=== PATIENT | female | born 1980 | race Caucasian/White ===

== ENCOUNTER 2018-06-22 13:25 | Emergency (ER) | payer OTHER ==
[~2018-06-22] VITALS: Ht 162.6 cm; Wt 113.4 kg
[~2018-06-22 13:25] MED LIST: ABILIFY10 MG PO; ABILIFY20 MG PO; AMBIEN10 MG PO; AMITRIPTYLINE H10 MG PEG; ATARAX; ATENOLOL25 MG PO; ATIVAN1 MG PO; AYGESTIN5 MG PO; CLONAZEPAM1 MG PO; CLONIDINE HCL0.1 MG PO; CYMBALTA60 MG PO; DIFLUCAN10 MG/1 ML; DIGOXIN125 MCG PO; DOXYCYCLINE HY100 MG PO; EFFEXOR XR150 MG PO; ENBREL25 MG/0.5 IM; FOLIC ACID1 MG PO; Fioricet; KEPPRA500 MG PO; KLONOPIN1 MG PO; LAMICTAL25 MG PO; LYRICA50 MG PO; MAGNESIUM OXID400 MG PO; MELOXICAM15 MG PO; METHOTREXATE2.5 MG PO; METOPROLOL TAR100 MG PO; METOPROLOL TART25 MG PO; MULTI-VITAMIN1 EACH; NEXIUM20 MG PO; NORETHINDRONE AC5 MG PO; POTASSIUM CHLO10 ME1 PO; PROZAC20 MG PO; SEROQUEL XR150 MG; TYLENOL WITH C1 EACH PO; VERAPAMIL ER120 MG PO; VIIBRYD40 MG PO; VITAMIN D32000 UNIT PO; ZITHROMAX250 MG; ZOLOFT100 MG PO
--- OUTSIDE RECORDS SUMMARY | 2018-06-22 13:31 | XMS REPORT | Continuity of Care Document ---
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 08/14/2015 [facility] SWOLLEN FOOT Active 08/14/2015 [facility] Discharge Diagnosis: Migraine 11/13/2014 11/16/2014 [facility] HEADACHE Active 11/12/2014 [facility] Discharge Diagnosis: Action tremor 12/14/2013 12/17/2013 [facility] Discharge Diagnosis: Hallucinations, visual 12/14/2013 12/17/2013 [facility] OTHER Active 12/13/2013 [facility] Epilepsy Resolved Problem 11/16/2014 [facility] GERD (<span ID="[id number]">Confirmed</span>) Resolved Problem 11/16/2014 [facility] HTN (<span ID="[id number]">Confirmed</span>) Resolved Problem 11/16/2014 [facility] RA (<span ID="[id number]">Confirmed</span>) Resolved Problem 11/16/2014 [facility] Migraine Active Problem 04/13/2016..1.132678.4.391.11.21172 RA Active Problem 04/13/2016 06.17.830.1.666400.4.391.11 GERD Active Problem 04/13/2016.0.1.075559.4.391.1118102 Insomnia Active Problem 04/13/2016 .1.027925.4.391.11 Cardiac arrhythmia Active Problem 04/13/2016..1.413829.4.391.1195196 Seizure Active Problem 04/13/2016.0.1.338891.4.391.11 Anxiety Active Diagnosis 04/13/2016.0.1.037897.4.391.11.58686 Opiate addiction Active Problem 04/13/2016 2.16.840.1.471132.4.391.11.68171 HTN Active Problem 04/13/2016 2.16.840.1.027328.4.391.11.95071 Seizures Active Problem 04/13/2016 2.16.840.1.176085.4.391.11.98984 Oral thrush Active Diagnosis 12/23/2015 2.16.840.1.632251.4.391.11.16749 Impetigo Active Diagnosis 09/03/2015 2.16.840.1.953911.4.391.11.82304 Urinary tract infection, site unspecified Active Diagnosis 09/03/2015 2.16.840.1.255058.4.391.11.98147 Right shoulder pain Active Diagnosis 09/03/2015 2.16.840.1.529986.4.391.11.23039 Cellulitis Active Diagnosis 09/03/2015 2.16.840.1.086477.4.391.11.56194 Fever Active Diagnosis 10/07/2015 2.16.840.1.250857.4.391.11.64238 Bronchitis Active Diagnosis 10/07/2015 2.16.840.1.401623.4.391.11.09131 DM Active Problem 04/13/2016 2.16.840.1.662628.4.391.11.55509 Sleep apnea Active Problem 04/13/2016 2.16.840.1.747608.4.391.11.47451 Chronic pain Active Problem 04/13/2016 2.16.840.1.215306.4.391.11.57119 Migraine headache Active Diagnosis 10/07/2015 2.16.840.1.437772.4.391.11.82155 Vaginal bleeding Active Diagnosis 10/07/2015 2.16.840.1.740591.4.391.11.92786 UTI Active Diagnosis 10/07/2015 2.16.840.1.473462.4.391.11.30537 Acute sinusitis Active Diagnosis 10/07/2015 2.16.840.1.890153.4.391.68 Tachycardia Active Diagnosis 10/07/2015 2.16.840.1.446109.4.391. Essential hypertension Active Problem 04/13/2016 2.16.840.1.649925.4.391. Migraine without aura and without status migrainosus, not intractable Active Problem 04/13/2016 2.16.840.1.994845.4.391. Irritable bowel syndrome with diarrhea Active Problem 04/13/2016 2.16.840.1.248122.4.391 Acute cystitis without hematuria Active Diagnosis 03/17/2016 2.16.840.1.164448.4.391. 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 2.16.840.1.842755.4.391 Anxiety Resolved Problem 08/21/2015 [facility] Depression Resolved Problem 08/21/2015 [facility] GERD (<span ID="[id number]">Confirmed</span>) Resolved Problem 08/21/2015 [facility] Hypertension Resolved Problem 08/21/2015 [facility] Rheumatoid arthritis Resolved Problem 08/21/2015 [facility] Seizures Resolved Problem 08/21/2015 [facility] SVT - Supraventricular tachycardia Resolved Problem 08/21/2015 [facility] CELLULITIS, UNSPECIFIED Active [facility] Medications Medication Details Route Status Patient Instructions Ordering Provider Order Date Source Fioricet TAKE ONE (1) TABLET(S) BY MOUTH Active 50-325-40 MG BY MOUTH EVERY FOUR HOURS [facility] 04/20/2016 2.16840.1.340247.4.391. Klor-Con M20 1 tablet with food Orally Active 20 MEQ Orally Once a day [facility] 03/16/2016 2.16.840.1.582199.4.391. Librax 1 capsule before meals Orally Active 5-2.5 MG Orally three times a day (tid) [facility] 03/16/2016 2.16.840.1.104924.4.391.11.21124 Emigrant 1 tablet as needed Orally Active 7.5-325 MG Orally three times a day (tid) as needed (prn) [facility] 03/16/2016 2.16.840.1.264738.4.391.11.00453 Tylenol/Codeine #4 1 tablet as needed Orally Active 300-60 MG Orally every 6 hrs PRN [facility] 12/26/2015 2.16.840.1.952555.4.391.11.26051 Xanax 1 tablet Orally Active 1 MG Orally three times a day (tid) [facility] 10/27/2015 2.16.840.1.143094.4.391.11.56511 Keppra 1 tablet Orally Active 750 MG Orally every 12 hrs [facility] 10/27/2015 2.16.840.1.468304.4.391.11.92387 Venlafaxine HCl ER 1 tablet with food Orally Active 225 MG Orally Once a day [facility] 10/21/2015 2.16.840.1.849134.4.391.11.86254 Fioricet 1 tablet as needed Orally Active 50-325-40 MG Orally every 4 hrs [facility] 10/06/2015 2.16.840.1.239452.4.391.11.89691 Ibuprofen 1 tablet by mouth Active 800 MG by mouth twice a day [facility] 10/01/2015 2.16.840.1.858355.4.391.11.51967 Promethazine-Codeine 5 ml as needed Orally Active 6.25-10 MG/5ML Orally every 6 hrs [facility] 09/15/2015 2.16.840.1.429517.4.391.11.84863 Diflucan 1 tablet Orally Active 100 mg Orally Once a day [facility] 09/08/2015 2.16.840.1.967406.4.391.11.90845 Metformin HCl 1 tablet with meals Orally Active 500 mg Orally Twice a day [facility] 09/08/2015 2.16.840.1.720647.4.391.11.99564 Amlodipine Besylate 1 tablet Orally Active 10 MG Orally Once a day [facility] 09/03/2015 2.16.840.1.375540.4.391.11.68567 Emigrant 1 tablet as needed Orally Active 7.5-325 MG Orally every 8 hrs [facility] 09/02/2015 2.16.840.1.976057.4.391.11.91947 Clonidine HCl 1 tablet Orally Active 0.2 MG Orally four times a day (qid) as needed (prn) [facility] 08/26/2015 2.16.840.1.390751.4.391.11.47983 Ativan 1 tablet as needed Orally Active 1 MG Orally three times a day (tid) [facility] 08/22/2015 2.16.840.1.460577.4.391.11.67331 Folic Acid 1 mg, 1 tab, Route: PO, Drug form: TAB, Daily, Dosing Weight 100.909, kg, Start date: 08/16/15 9:00:00 CDT, Duration: 30 day, Stop date: 09/14/15 9:00:00 CDTNotes: (Same as: Folvite) No Longer Active 08/16/2015 [facility] Nexium 40 mg, Route: PO, Drug form: ECCAP, Daily, Dosing Weight 100.909, kg, Start date: 08/16/15 9:00:00 CDT, Duration: 30 day, Stop date: 09/14/15 9:00:00 CDT No Longer Active 08/16/2015 [facility] Buprenorphine 8 MG / Naloxone 2 MG Sublingual Tablet 2 tab, Route: SL, Dosing Weight 100.909, kg, Daily, Start date: 08/16/15 9:00:00 CDT, Duration: 30 day, Stop date: 09/14/15 9:00:00 CDT No Longer Active 08/16/2015 [facility] Verapamil 120 mg, 1 tab, Route: PO, Drug form: TAB, Daily, Dosing Weight 100.909, kg, Start date: 08/16/15 9:00:00 CDT, Duration: 30 day, Stop date: 09/14/15 9:00:00 CDTNotes: (Same As: Shavonne Willis) "Avoid grapefruit and grapefruit juice" No Longer Active 08/16/2015 [facility] Effexor XR 225 mg, 3 cap, Route: PO, Drug form: ERCAP, Daily, Dosing Weight 100.909, kg, Start date: 08/16/15 9:00:00 CDT, Duration: 30 day, Stop date: 09/14/15 9:00:00 CDTNotes: Do not open, crush, or chew. (Same As: Effexor XR) No Longer Active 08/16/2015 [facility] metoprolol tartrate 100 mg, 2 tab, Route: PO, Drug form: TAB, Q12H, Dosing Weight 100.909, kg, Start date: 08/15/15 21:00:00 CDT, Duration: 30 day, Stop date: 09/14/15 9:00:00 CDTNotes: (Same as: Lopressor) No Longer Active 08/16/2015 [facility] Levetiracetam 500 MG Oral Tablet [Keppra] 500 mg, 1 tab, Route: PO, Drug form: TAB, BID, Dosing Weight 100.909, kg, Start date: 08/15/15 21:00:00 CDT, Duration: 30 day, Stop date: 09/14/15 9:00:00 CDTNotes: (Same as:Keppra) No Longer Active 08/16/2015 [facility] amitriptyline 12.5 mg, 0.5 tab, Route: PO, Drug form: TAB, Bedtime, Start date: 08/15/15 21:00:00 CDT, Duration: 30 day, Stop date: 09/13/15 21:00:00 CDTNotes: (Same as: Elavil) No Longer Active 08/16/2015 [facility] Amitriptyline Hydrochloride 12.5 MG / Chlordiazepoxide 5 MG Oral Tablet 1 tab, Route: PO, Dosing Weight 100.909, kg, Bedtime, Start date: 08/15/15 21:00:00 CDT, Duration: 30 day, Stop date: 09/13/15 21:00:00 CDT Inactive 08/16/2015 [facility] Ambien 5 mg, 1 tab, Route: PO, Drug form: TAB, Bedtime, Dosing Weight 100.909, kg, Start date: 08/15/15 21:00:00 CDT, Duration: 30 day, Stop date: 09/13/15 21:00:00 CDTNotes: (Same As: Ambien) No Longer Active 08/16/2015 [facility] chlordiazePOXIDE 5 mg oral capsule (Librium) 5 mg, 1 cap, Route: PO, Drug form: CAP, Bedtime, Start date: 08/15/15 21:00:00 CDT, Duration: 30 day, Stop date: 09/13/15 21:00:00 CDTNotes: (Same As: Librium) No Longer Active 08/16/2015 [facility] PLease do not give Vanco prior to trough is collected PLease do not give Vanco prior to trough is collected, Reminder, Drug form: MISC, Route: MISC, ONCE, 08/15/15 20:00:00 CDT, Stop date: 08/15/15 20:00:00 CDT Inactive 08/16/2015 [facility] pantoprazole 40 mg, 1 tab, Route: PO, Drug form: ECTAB, Before Dinner, Dosing Weight 96.364, kg, Start date: 08/15/15 16:30:00 CDT, Duration: 30 day, Stop date: 09/13/15 16:30:00 CDTNotes: Tablet should not be ch ewed or crushed. (Same as: Protonix) No Longer Active 08/15/2015 [facility] NURSE - Please bring home med bupre.-nalox. 8-2 to Pharmacy NURSE - Please bring home med bupre.-nalox. 8-2 to Pharmacy, 1, Drug form: MISC, Route: MISC, TID, 08/15/15 15:00:00 CDT, Duration: 30 day, Stop date: 09/14/15 9:00:00 CDT No Longer Active 08/15/2015 [facility] Ativan 1 mg, 1 tab, Route: PO, Drug form: TAB, TID, Dosing Weight 100.909, kg, Start date: 08/15/15 15:00:00 CDT, Duration: 30 day, Stop date: 09/14/15 9:00:00 CDTNotes: (Same as: Ativan) No Longer Active 08/15/2015 [facility] Vancomycin 1 gm, Route: IV, ABXQ8H, Dosing Weight 96.364, kg, Start date: 08/15/15 5:00:00 CDT, Duration: 30 day, Stop date: 09/13/15 22:00:00 CDTNotes: TIME CRITICAL MEDICATION (Same As: Vancocin) Infusion rate 2001 mg: infuse over 2.5 hours MEDICATION WASTE Product Size: 1000 mg Product Wasted: ___ mg No Longer Active 08/15/2015 [facility] Ambien 10 mg, PO, Bedtime, 0 Refill(s) Active 08/15/2015 [facility] Esomeprazole 40 MG Enteric Coated Capsule [Nexium] 40 mg=1 cap, PO, Daily, 0 Refill(s) Active 08/15/2015 [facility] Verapamil 120 mg, PO, Daily, 0 Refill(s) Active 08/15/2015 [facility] Buprenorphine 12 MG / Naloxone 3 MG Oral Strip [Suboxone] 8mg/2.5, SL, Daily, # 30 ea, 0 Refill(s) Active 08/15/2015 [facility] metoprolol tartrate 100 mg oral tablet 100 mg=1 tab, PO, BID, 0 Refill(s) Active 08/15/2015 [facility] Effexor XR 225, PO, Daily, 0 Refill(s) Active 08/15/2015 [facility] Limbitrol 12.5 mg-5 mg oral tablet 1 tab, PO, Bedtime, 0 Refill(s) Active 08/15/2015 [facility] Lorazepam 1 MG Oral Tablet [Ativan] 1 mg=1 tab, PO, TID, 0 Refill(s) Active 08/15/2015 [facility] Folic Acid 1 MG Oral Tablet 1 mg=1 tab, PO, Daily, 0 Refill(s) Active 08/15/2015 [facility] multivitamin Daily, 0 Refill(s) Active 08/15/2015 [facility] Levetiracetam 500 MG Oral Tablet [Keppra] 500 mg=1 tab, PO, BID, 0 Refill(s) Active 08/15/2015 [facility] Morphine 2 mg, 1 mL, Route: IV, Drug form: INJ, Q4H, Dosing Weight 96.364, kg, Start date: 08/15/15 0:00:00 CDT, Duration: 30 day, Stop date: 09/13/15 20:00:00 CDTNotes: (Same as:MORPhine Sulfate) Inactive 08/15/2015 [facility] Unasyn 1.5 gm, 1 ea, Route: IVPB, ABXQ6H, Dosing Weight 96.364, kg, Start date: 08/15/15 0:00:00 CDT, Duration: 30 day, Stop date: 09/13/15 17:00:00 CDTNotes: Dosing based on Ampicillin component (Same as: Unasyn) No Longer Active 08/15/2015 [facility] Acetaminophen 650 mg, 2 tab, Route: PO, Drug form: TAB, Q4H, Dosing Weight 96.364, kg, PRN Pain 1-3/Temp > 100.4 F, Start date: 08/14/15 23:50:00 CDT, Duration: 30 day, Stop date: 09/13/15 23:49:00 CDTNotes: Do not exceed 4 gm/day. (Same as: Tylenol) No Longer Active 08/15/2015 [facility] Solu-Medrol 40 mg, 1 mL, Route: IVP, Drug form: INJ, Q12H, Dosing Weight 96.364, kg, Priority: STAT, Start date: 08/14/15 19:47:00 CDT, Duration: 30 day, Stop date: 09/13/15 9:00:00 CDTNotes: (Same as:Solu-MEDROL, A- Methapred) No Longer Active 08/15/2015 [facility] Vancomycin 1 gm, Route: IVPB, Drug form: INJ, EDCF54L, Dosing Weight 96.364, kg, Priority: STAT, Start date: 08/14/15 19:46:00 CDT, Duration: 30 day, Stop date: 09/13/15 8:00:00 CDTNotes: TIME CRITICAL MEDICATION (Same As: Vancocin) Infusion rate 2001 mg: infuse over 2.5 hours MEDICATION WASTE Product Size: 1000 mg Product Wasted: ___ mg Inactive 08/15/2015 [facility] Levaquin 1 tablet Orally Active 500 mg Orally Once a day [facility] 07/29/2015 2.16.840.1.476331.4.391.11.40049 Promethazine-DM 5 ml as needed Orally Active 6.25-15 MG/5ML Orally every 6 hrs [facility] 07/29/2015 2.16.840.1.468356.4.391.11.03364 Doxycycline Monohydrate 1 capsule Orally Active 100 mg Orally every 12 hrs [facility] 07/08/2015 2.16.840.1.797568.4.391.11.27909 Nystatin 5ml Mouth/Throat Active [id number] UNIT/ML Mouth/Throat Twice a day [facility] 07/08/2015 2.16.840.1.904121.4.391.11.48599 melatonin 3 mg oral tablet 3 mg=1 tab, PO, Bedtime, PRN for insomnia, X 60 day, # 60 tab, 0 Refill(s) Active 11/13/2014 [facility] predniSONE 20 mg oral tablet 40 mg=2 tab, PO, Daily, X 3 day, # 6 tab, 0 Refill(s) Active 11/13/2014 [facility] diclofenac potassium 50 mg oral tablet 50 mg=1 tab, PO, Q2H, PRN severe headache, max dose 2 doses per day, # 12 tab, 0 Refill(s)Special Instructions: PRN severe headache, max dose 2 doses per day Inactive 11/13/2014 [facility] Valproic Acid 250 MG Oral Capsule 500 mg=2 cap, PO, BID, # 30 cap, 0 Refill(s) Active 11/13/2014 [facility] Magnesium Sulfate 2 gm, 50 mL, Route: IV, Drug form: INJ, ONCE, Dosing Weight 95.455, kg, Start date: 11/12/14 18:05:00, Stop date: 11/12/14 18:05:00 Inactive 11/12/2014 [facility] Sodium Chloride 0.154 MEQ/ML Injectable Solution 500 mL, 500 ml/hr, Infuse Over: 1 hr, Route: IV, 500, Drug form: INJ, ONCE, Priority: STAT, Dosing Weight 95.455 kg, Start date: 11/12/14 18:05:00, Duration: 1 doses or times, Stop date: 11/12/14 18:05:00 Inactive 11/12/2014 [facility] Vistaril 25 mg, 1 mL, Route: IM, Drug form: INJ, ONCE, Dosing Weight 95.455, kg, Priority: STAT, Start date: 11/12/14 18:04:00, Stop date: 11/12/14 18:04:00 Inactive 11/12/2014 [facility] Valproic Acid 100 MG/ML Injectable Solution 500 mg, 5 mL, Route: IV, Drug form: INJ, ONCE, Dosing Weight 95.455, kg, Start date: 11/12/14 18:04:00, Stop date: 11/12/14 18:04:00Notes: Dilute in at least 50ml D5W or NS. Infusion rate=20 mg/min (Same As: Depacon) Inactive 11/12/2014 [facility] Vancomycin 1.5 gm, Route: IVPB, Drug form: INJ, ONCE, Dosing Weight 95.455, kg, Priority: STAT, Start date: 11/12/14 17:09:00, Stop date: 11/12/14 17:09:00 Inactive 11/12/2014 [facility] cefepime 1 gm, Route: IVPB, ONCE, Dosing Weight 95.455, kg, Priority: STAT, Start date: 11/12/14 17:09:00, Stop date: 11/12/14 17:09:00 Inactive 11/12/2014 [facility] Dexamethasone 10 mg, 1 mL, Route: IVP, Drug form: INJ, ONCE, Dosing Weight 95.455, kg, Priority: STAT, Start date: 11/12/14 15:08:00, Stop date: 11/12/14 15:08:00Notes: MEDICATION WASTE Product Size: 10 mg Product Wasted: 0 mg Inactive 11/12/2014 [facility] Compazine 10 mg, 2 mL, Route: IV, Drug form: INJ, ONCE, Dosing Weight 95.455, kg, Start date: 11/12/14 15:06:00, Stop date: 11/12/14 15:06:00Notes: (Same as: Compazine) Inactive 11/12/2014 [facility] Phenergan 25 mg, 1 mL, Route: IVPB, Drug form: INJ, ONCE, Dosing Weight 95.455, kg, Priority: STAT, Start date: 11/12/14 13:49:00, Stop date: 11/12/14 13:49:00Notes: Do not give IV push. (Same as: Phenergan) Inactive 11/12/2014 [facility] Sodium Chloride 0.154 MEQ/ML Injectable Solution 1,000 mL, 1,000 ml/hr, Infuse Over: 1 hr, Route: IV, 1,000, Drug form: INJ, ONCE, Priority: STAT, Dosing Weight 95.455 kg, Start date: 11/12/14 13:10:00, Duration: 1 doses or times, Stop date: 11/12/14 13:10:00 Inactive 11/12/2014 [facility] Ketorolac 30 mg, 1 mL, Route: IVP, Drug form: INJ, ONCE, Dosing Weight 95.455, kg, Priority: STAT, Start date: 11/12/14 12:14:00, Stop date: 11/12/14 12:14:00Notes: (Same as:Toradol) IV bolus must be given >15 seconds. Give IM administration slowly and deeply into the muscle. Not for use > 4 days MEDICATION WASTE Product Size: 30 mg Product Wasted: ___ mg Inactive 11/12/2014 [facility] Benadryl 25 mg, 0.5 mL, Route: IVP, Drug form: INJ, ONCE, Dosing Weight 95.455, kg, Priority: STAT, Start date: 11/12/14 12:13:00, Stop date: 11/12/14 12:13:00Notes: (Same as: Benadryl) Inactive 11/12/2014 [facility] Reglan 10 mg, 2 mL, Route: IVP, Drug form: INJ, ONCE, Dosing Weight 95.455, kg, Priority: STAT, Start date: 11/12/14 12:13:00, Stop date: 11/12/14 12:13:00Notes: (Same as: Reglan) Inactive 11/12/2014 [facility] Ambien 1 tablet Orally Active 10 mg Orally Once at bedtime [facility] 2.840.1.899524.4.391..29919 Venlafaxine HCl ER 1 tablet with food Orally Active 225 MG Orally Once a day [facility] 2.840.1.423246.4.391..92142 Metoprolol Tartrate 1 tablet Orally Active 100 mg Orally Twice a day [facility] 2.16840.1.282578.4.391 Folic Acid 1 tablet Orally Active 1 MG Orally Once a day [facility] 840.1.398223.4.391 Keppra 1 tablet Orally Active 500 mg Orally twice aday [facility] .840.1.312519.4.391 Chlordiazepoxide-Amitriptyline 1 tablet Orally Active 5-12.5 MG Orally Once a day [facility] 840.1.763752.4.391 Multi For Her Unknown Orally Active Orally [facility] .840.1.740703.4.391 Verapamil HCl 1 capsule Orally Active 120 MG Orally Once a day [facility] 840.1.938260.4.391 Suboxone 1 tablet under the tongue and allow to dissolve Sublingual Active 8-2 MG Sublingual Once a day [facility] 840.1.857629.4.391 Nexium 1 capsule Orally Active 40 MG Orally Once a day [facility] 840.1.559495.4.391 Ibuprofen 1 as needed Orally Active 300 MG Orally every 6 hrs [facility] 840.1.870708.4.391 ProAir HFA 2 puffs as needed Inhalation Active 108 (90 Base) MCG/ACT Inhalation every 4 hrs [facility] 840.1.981414.4.391 PredniSONE 1 tablet with food or milk Orally Active 20 MG Orally Once a day [facility] .840.1.505997.4.391 Augmentin 1 tablet Orally Active Orally every 12 hrs [facility] 840.1.978961.4.391 Verapamil HCl 1 capsule Orally Active 120 MG Orally Once a day [facility] 840.1.975993.4.391 Baclofen 1 tablet with food or milk Orally Active 10 MG Orally Three times a day [facility] 840.1.320905.4.391 Promethazine-DM 5 ml as needed Orally Active 6.25-15 MG/5ML Orally every 6 hrs [facility] 2.16.840.1.817374.4.391 Mucinex Sinus-Max 20 ml as needed Orally Active 10-650-400 MG/20ML Orally every 4 hrs [facility] 2.16.840.1.616908.4.391 Doxycycline 1 capsule on an empty stomach in the morning Orally Active 40 MG Orally Once a day [facility] 2.16.840.1.014139.4.391 Ambien TAKE ONE (1) TABLET(S) BY MOUTH AT BEDTIME. NA Active 10 MG [facility] 2.16.840.1.782241.4.391 Digoxin 1 tablet Injection Active 0.25 MG/ML Injection Once a day [facility] 2.16840.1.192090.4.391 Effexor XR TAKE TWO (2) CAPSULE(S) BY MOUTH DAILY. NA Active 150 MG [facility] 2.16.840.1.485442.4.391 Levofloxacin 1 tablet Orally Active 500 MG Orally Once a day [facility] 2.16.840.1.047664.4.391 Fioricet 1 tablet as needed Orally Active 50-325-40 MG Orally three times a day (tid) as needed (prn) [facility] 2.16.840.1.381533.4.391 Potassium Chloride 1 tablet Orally No Longer Active 20 MEQ/15ML (10%) Orally TWICE A WEEK [facility] 2.16.840.1.785244.4.391 Allergies, Adverse Reactions, Alerts Substance Category Reaction Severity Reaction type Status Date Reported Comments Source Lamictal Adverse Reaction Info Not Available Adverse Reaction Active 03/16/2016 2.16.840.1.496018.4.391 Klonopin Adverse Reaction Info Not Available Adverse Reaction Active 03/16/2016 2.16.840.1.414515.4.391 Vyybryd Adverse Reaction Info Not Available Adverse Reaction Active 03/16/2016 2.16.840.1.913578.4.391.11.34624 KlonoPIN Assertion Drug allergy Active [facility] LaMICtal Assertion Drug allergy Active [facility] Toradol Assertion Drug allergy Active [facility] Viibryd Assertion Drug allergy Active [facility] Immunizations Immunization Date Given Site Status Last Updated Comments Source Results Order Name Results Value Reference Range Date Interpretation Comments Source ELECTROLYTES AGAP 11.0 meq/L 10.0 - 20.0 08/17/2015 [facility] ELECTROLYTES eGFR 122 mL/min/1.73m2 08/17/2015 Result Comment: The eGFR is calculated using the CKD-EPI formula. In most young, healthy individuals the eGFR will be >90 mL/min/1.73m2. The eGFR declines with age. An eGFR of 60-89 may be normal in some populations, particularly the elderly, for whom the CKD-EPI formula has not been extensively validated. Use of the eGFR is not recommended in the following populations: Individuals with unstable creatinine concentrations, including patients and those with serious co-morbid conditions. Patients with extremes in muscle mass or diet. The data above are obtained from the National Kidney Disease Education Program (NKDEP) which additionally recommends that when the eGFR is used in patients with extremes of body mass index for purposes of drug dosing, the eGFR should be multiplied by the estimated BMI. [facility] ELECTROLYTES CO2 30 meq/L 24 - 32 08/17/2015 [facility] ELECTROLYTES Chloride Lvl 102 meq/L 95 - 109 08/17/2015 [facility] ELECTROLYTES Creatinine Lvl 0.54 mg/dL 0.50 - 1.40 08/17/2015 [facility] ELECTROLYTES Sodium Lvl 139 meq/L 135 - 145 08/17/2015 [facility] ELECTROLYTES Potassium Lvl 4.0 meq/L 3.5 - 5.1 08/17/2015 [facility] ELECTROLYTES Glucose Lvl 212 mg/dL 70 - 99 08/17/2015 [facility] ELECTROLYTES BUN 8 mg/dL 7 - 22 08/17/2015 [facility] ELECTROLYTES Calcium Lvl 8.4 mg/dL 8.5 - 10.5 08/17/2015 [facility] HEMATOLOGY MCH 24.9 pg 27.0 - 31.0 08/17/2015 [facility] HEMATOLOGY MPV 9.5 fL 7.4 - 10.4 08/17/2015 [facility] MCHC 32.7 g/dL 32.0 - 36.0 08/17/2015 [facility] RDW 17.9 % 11.5 - 14.5 08/17/2015 [facility] Platelet 224 K/CMM 133 - 450 08/17/2015 [facility] Hct 36.5 % 36.0 - 48.0 08/17/2015 [facility] WBC 12.3 K/CMM 3.7 - 10.4 08/17/2015 [facility] RBC 4.78 M/CMM 4.20 - 5.40 08/17/2015 [facility] MCV 76.3 fL 80.0 - 98.0 08/17/2015 [facility] Hgb 11.9 g/dL 12.0 - 16.0 08/17/2015 [facility] Microcyte 1+ *ABN* (08/17/15 3:56 AM) None Seen 08/17/2015 [facility] Basophils # 0.1 K/CMM 0.0 - 0.2 08/17/2015 [facility] Lymphocytes # 2.7 K/CMM 1.0 - 5.5 08/17/2015 [facility] Monocytes # 0.5 K/CMM 0.0 - 0.8 08/17/2015 [facility] Basophils 0.5 % 0.0 - 1.0 08/17/2015 [facility] Segs-Bands # 8.9 K/CMM 1.5 - 8.1 08/17/2015 [facility] Monocytes 4.1 % 2.0 - 12.0 08/17/2015 [facility] Eosinophils 0.1 % 0.0 - 4.0 08/17/2015 [facility] Segs 73.0 % 45.0 - 75.0 08/17/2015 [facility] Lymphocytes 22.3 % 20.0 - 40.0 08/17/2015 [facility] SPECIAL CHEMISTRY Hgb A1C 6.5 % <=5.6 % 08/17/2015 [facility] CHEM PANEL eGFR 118 mL/min/1.73m2 08/16/2015 Result Comment: The eGFR is calculated using the CKD-EPI formula. In most young, healthy individuals the eGFR will be >90 mL/min/1.73m2. The eGFR declines with age. An eGFR of 60-89 may be normal in some populations, particularly the elderly, for whom the CKD-EPI formula has not been extensively validated. Use of the eGFR is not recommended in the following populations: Individuals with unstable creatinine concentrations, including patients and those with serious co-morbid conditions. Patients with extremes in muscle mass or diet. The data above are obtained from the National Kidney Disease Education Program (NKDEP) which additionally recommends that when the eGFR is used in patients with extremes of body mass index for purposes of drug dosing, the eGFR should be multiplied by the estimated BMI. [facility] CHEM PANEL Potassium Lvl 4.1 meq/L 3.5 - 5.1 08/16/2015 [facility] CHEM PANEL Chloride Lvl 105 meq/L 95 - 109 08/16/2015 [facility] CHEM PANEL Sodium Lvl 138 meq/L 135 - 145 08/16/2015 [facility] CHEM PANEL BUN 6 mg/dL 7 - 22 08/16/2015 [facility] CHEM PANEL Creatinine Lvl 0.59 mg/dL 0.50 - 1.40 08/16/2015 [facility] CHEM PANEL Glucose Lvl 220 mg/dL 70 - 99 08/16/2015 [facility] CHEM PANEL CO2 24 meq/L 24 - 32 08/16/2015 [facility] CHEM PANEL Calcium Lvl 8.6 mg/dL 8.5 - 10.5 08/16/2015 [facility] CHEM PANEL AGAP 13.1 meq/L 10.0 - 20.0 08/16/2015 [facility] HEMATOLOGY Hgb 12.0 g/dL 12.0 - 16.0 08/16/2015 [facility] Hct 36.7 % 36.0 - 48.0 08/16/2015 [facility] WBC 10.8 K/CMM 3.7 - 10.4 08/16/2015 [facility] RBC 4.77 M/CMM 4.20 - 5.40 08/16/2015 [facility] MCV 76.8 fL 80.0 - 98.0 08/16/2015 [facility] MPV 9.1 fL 7.4 - 10.4 08/16/2015 [facility] RDW 17.9 % 11.5 - 14.5 08/16/2015 [facility] Platelet 219 K/CMM 133 - 450 08/16/2015 [facility] MCHC 32.9 g/dL 32.0 - 36.0 08/16/2015 [facility] MCH 25.2 pg 27.0 - 31.0 08/16/2015 [facility] HEMATOLOGY Segs 71.4 % 45.0 - 75.0 08/16/2015 [facility] HEMATOLOGY Lymphocytes 23.4 % 20.0 - 40.0 08/16/2015 [facility] HEMATOLOGY Eosinophils 0.4 % 0.0 - 4.0 08/16/2015 [facility] HEMATOLOGY Monocytes 4.1 % 2.0 - 12.0 08/16/2015 [facility] HEMATOLOGY Basophils 0.7 % 0.0 - 1.0 08/16/2015 [facility] Segs-Bands # 7.7 K/CMM 1.5 - 8.1 08/16/2015 [facility] HEMATOLOGY Basophils # 0.1 K/CMM 0.0 - 0.2 08/16/2015 [facility] Microcyte 1+ *ABN* (08/16/15 5:20 AM) None Seen 08/16/2015 [facility] Lymphocytes # 2.5 K/CMM 1.0 - 5.5 08/16/2015 [facility] Monocytes # 0.4 K/CMM 0.0 - 0.8 08/16/2015 [facility] TOXICOLOGY Vanco Tr 8.8 ug/ml 08/16/2015 [facility] TOXICOLOGY Vanco Tr TND 2100 08/16/2015 [facility] CHEM PANEL Glucose Lvl 201 mg/dL 70 - 99 08/15/2015 [facility] CHEM PANEL BUN 7 mg/dL 7 - 22 08/15/2015 [facility] CHEM PANEL Creatinine Lvl 0.59 mg/dL 0.50 - 1.40 08/15/2015 [facility] CHEM PANEL eGFR 118 mL/min/1.73m2 08/15/2015 Result Comment: The eGFR is calculated using the CKD-EPI formula. In most young, healthy individuals the eGFR will be >90 mL/min/1.73m2. The eGFR declines with age. An eGFR of 60-89 may be normal in some populations, particularly the elderly, for whom the CKD-EPI formula has not been extensively validated. Use of the eGFR is not recommended in the following populations: Individuals with unstable creatinine concentrations, including patients and those with serious co-morbid conditions. Patients with extremes in muscle mass or diet. The data above are obtained from the National Kidney Disease Education Program (NKDEP) which additionally recommends that when the eGFR is used in patients with extremes of body mass index for purposes of drug dosing, the eGFR should be multiplied by the estimated BMI. [facility] CHEM PANEL Calcium Lvl 8.9 mg/dL 8.5 - 10.5 08/15/2015 [facility] CHEM PANEL AGAP 10.6 meq/L 10.0 - 20.0 08/15/2015 [facility] CHEM PANEL Sodium Lvl 140 meq/L 135 - 145 08/15/2015 [facility] CHEM PANEL Chloride Lvl 103 meq/L 95 - 109 08/15/2015 [facility] CHEM PANEL Potassium Lvl 3.6 meq/L 3.5 - 5.1 08/15/2015 [facility] CHEM PANEL CO2 30 meq/L 24 - 32 08/15/2015 [facility] HEMATOLOGY RBC 5.18 M/CMM 4.20 - 5.40 08/15/2015 [facility] HEMATOLOGY Hct 39.5 % 36.0 - 48.0 08/15/2015 [facility] MCV 76.4 fL 80.0 - 98.0 08/15/2015 [facility] Hgb 12.9 g/dL 12.0 - 16.0 08/15/2015 [facility] RDW 17.7 % 11.5 - 14.5 08/15/2015 [facility] Platelet 227 K/CMM 133 - 450 08/15/2015 [facility] MPV 9.9 fL 7.4 - 10.4 08/15/2015 [facility] WBC 8.3 K/CMM 3.7 - 10.4 08/15/2015 [facility] MCHC 32.7 g/dL 32.0 - 36.0 08/15/2015 [facility] MCH 25.0 pg 27.0 - 31.0 08/15/2015 [facility] Monocytes 1.4 % 2.0 - 12.0 08/15/2015 [facility] Segs 78.6 % 45.0 - 75.0 08/15/2015 [facility] Lymphocytes 19.1 % 20.0 - 40.0 08/15/2015 [facility] Microcyte 1+ *ABN* (08/15/15 3:24 AM) None Seen 08/15/2015 [facility] HEMATOLOGY Basophils 0.6 % 0.0 - 1.0 08/15/2015 [facility] Monocytes # 0.1 K/CMM 0.0 - 0.8 08/15/2015 [facility] Segs-Bands # 6.5 K/CMM 1.5 - 8.1 08/15/2015 [facility] HEMATOLOGY Eosinophils 0.3 % 0.0 - 4.0 08/15/2015 [facility] HEMATOLOGY Lymphocytes # 1.6 K/CMM 1.0 - 5.5 08/15/2015 [facility] CHEM PANEL Lactic Acid Lvl 1.8 mMol/L 0.5 - 2.2 08/15/2015 [facility] HEMATOLOGY Sed Rate 13 mm/h 0 - 20 08/15/2015 [facility] IMMUNOLOGY C-REACTIVE PROTEIN 14.0 mg/L <=2.9 mg/L 08/15/2015 [facility] URINE AND STOOL UA Color [place] 08/15/2015 [facility] URINE AND STOOL UA Leuk Est Negative (08/14/15 8:33 PM) Negative 08/15/2015 [facility] URINE AND STOOL UA Sq Epi Moderate /LPF Few /LPF 08/15/2015 [facility] URINE AND STOOL UA Mucus Few /LPF None Seen /LPF 08/15/2015 [facility] URINE AND STOOL UA Protein Negative mg/dL Negative mg/dL 08/15/2015 [facility] URINE AND STOOL UA Glucose Negative mg/dL Negative mg/dL 08/15/2015 [facility] URINE AND STOOL UA pH 6.0 5.0 - 8.0 08/15/2015 [facility] URINE AND STOOL UA Spec Grav 1.012 <=1.030 08/15/2015 [facility] URINE AND STOOL UA Urobilinogen 4.0 mg/dL 0.1 - 1.0 08/15/2015 [facility] URINE AND STOOL UA Nitrite Negative (08/14/15 8:33 PM) Negative 08/15/2015 [facility] URINE AND STOOL UA Ketones Negative mg/dL Negative mg/dL 08/15/2015 [facility] URINE AND STOOL UA Bili Negative *NA* (08/14/15 8:33 PM) Negative 08/15/2015 [facility] URINE AND STOOL UA Blood Negative (08/14/15 8:33 PM) Negative 08/15/2015 [facility] URINE AND STOOL UA Turbidity Clear (08/14/15 8:33 PM) Clear 08/15/2015 [facility] HEMATOLOGY Basophils # 0.1 K/CMM 0.0 - 0.2 08/15/2015 [facility] HEMATOLOGY Eosinophils # 0.6 K/CMM 0.0 - 0.5 08/15/2015 [facility] HEMATOLOGY Plt Morph Normal (08/14/15 8:30 PM) 08/15/2015 [facility] CHEM PANEL Alk Phos 82 unit/L 39 - 136 08/15/2015 [facility] CHEM PANEL AST 35 unit/L 0 - 37 08/15/2015 [facility] CHEM PANEL Bili Total 0.6 mg/dL 0.2 - 1.3 08/15/2015 [facility] CHEM PANEL A/G Ratio 0.8 0.7 - 1.6 08/15/2015 [facility] CHEM PANEL Albumin Lvl 3.0 g/dL 3.5 - 5.0 08/15/2015 [facility] CHEM PANEL Globulin 3.7 g/dL 2.0 - 4.0 08/15/2015 [facility] CHEM PANEL ALT 32 unit/L 0 - 65 08/15/2015 [facility] CHEM PANEL B/C Ratio 14 6 - 25 08/15/2015 [facility] CHEM PANEL Total Protein 6.7 g/dL 6.4 - 8.4 08/15/2015 [facility] ENDOCRINOLOGY S Preg Negative *NA* (08/14/15 7:06 PM) Negative 08/15/2015 [facility] Chest 1view DX Chest 1view DX CHEST, 1 VIEW HISTORY: Absent of breath sounds; multi breathing, chest pain COMPARISON: None available. FINDINGS: The lungs are clear. No pleural effusion or pneumothorax. Cardiomegaly. Dual lead cardiac pacemaker. No acute osseous abnormality. SL: [id number] 08/14/2015 - - Read by: Ceasar Blair MD Dictated Date/time: 08/14/15 21:39 Electronically Signed by: Ceasar Blair MD 08/14/15 21:40 FINAL REPORT [facility] URINE AND STOOL UA Bacteria Few /HPF None Seen /HPF 12/14/2013 [facility] URINE AND STOOL UA Amorph [place]ana Occasional /HPF None Seen /HPF 12/14/2013 [facility] URINE AND STOOL UA RBC None Seen (12/14/13 12:10 AM) 0 - 2 12/14/2013 [facility] URINE AND STOOL UA Leuk Est Negative (12/14/13 12:10 AM) Negative 12/14/2013 [facility] URINE AND STOOL Micro? Performed (12/14/13 12:10 AM) 12/14/2013 [facility] URINE AND STOOL UA Sq Epi Few /LPF Few /LPF 12/14/2013 [facility] URINE AND STOOL UA WBC 3-5 /HPF None Seen /HPF 12/14/2013 [facility] URINE AND STOOL UA Spec Grav >=1.030 *ABN* (12/14/13 12:10 AM) <=1.030 12/14/2013 [facility] URINE AND STOOL UA pH 6.0 5.0 - 8.0 12/14/2013 [facility] URINE AND STOOL UA Protein Negative (12/14/13 12:10 AM) Negative 12/14/2013 [facility] URINE AND STOOL UA Glucose Negative (12/14/13 12:10 AM) Negative 12/14/2013 [facility] URINE AND STOOL UA Ketones Negative *NA* (12/14/13 12:10 AM) Negative 12/14/2013 [facility] URINE AND STOOL UA Bili Negative *NA* (12/14/13 12:10 AM) Negative 12/14/2013 [facility] URINE AND STOOL UA Blood Negative (12/14/13 12:10 AM) Negative 12/14/2013 [facility] URINE AND STOOL UA Urobilinogen 0.2 EU/dL 0.1 - 1.0 12/14/2013 [facility] URINE AND STOOL UA Nitrite Negative (12/14/13 12:10 AM) Negative 12/14/2013 [facility] URINE AND STOOL UA Color Yellow *NA* (12/14/13 12:10 AM) Yellow 12/14/2013 [facility] URINE AND STOOL UA Turbidity Clear (12/14/13 12:10 AM) Clear 12/14/2013 [facility] URINE CHEM U Preg Negative (12/14/13 12:10 AM) Negative 12/14/2013 [facility] CHEM PANEL Phosphorus 5.7 mg/dL 2.5 - 4.5 12/14/2013 [facility] CHEM PANEL Magnesium Lvl 1.8 mg/dL 1.8 - 2.4 12/14/2013 [facility] CHEM PANEL eGFR 83 mL/min/1.73m2 12/14/2013 1Result Comment: The eGFR is calculated using the CKD-EPI formula. In most young, healthy individuals the eGFR will be >90 mL/min/1.73m2. The eGFR declines with age. An eGFR of 60-89 may be normal in some populations, particularly the elderly, for whom the CKD-EPI formula has not been extensively validated. Use of the eGFR is not recommended in the following populations: Individuals with unstable creatinine concentrations, including patients and those with serious co-morbid conditions. Patients with extremes in muscle mass or diet. The data above are obtained from the National Kidney Disease Education Program (NKDEP) which additionally recommends that when the eGFR is used in patients with extremes of body mass index for purposes of drug dosing, the eGFR should be multiplied by the estimated BMI. [facility] CHEM PANEL Chloride Lvl 101 meq/L 95 - 109 12/14/2013 [facility] CHEM PANEL Potassium Lvl 3.6 meq/L 3.5 - 5.1 12/14/2013 [facility] CHEM PANEL Sodium Lvl 138 meq/L 135 - 145 12/14/2013 [facility] CHEM PANEL Creatinine Lvl 0.9 mg/dL 0.5 - 1.4 12/14/2013 [facility] CHEM PANEL BUN 22 mg/dL 7 - 22 12/14/2013 [facility] CHEM PANEL Glucose Lvl 111 mg/dL 70 - 99 12/14/2013 2Interpretive Data: Adult reference range values reflect the clinical guidelines of the [place] [employer]. [facility] CHEM PANEL Calcium Lvl 9.8 mg/dL 8.5 - 10.5 12/14/2013 [facility] CHEM PANEL CO2 31 meq/L 24 - 32 12/14/2013 [facility] CHEM PANEL AGAP 9.6 meq/L 10.0 - 20.0 12/14/2013 [facility] Lymphocytes # 4.0 K/CMM 1.0 - 5.5 12/14/2013 [facility] HEMATOLOGY Segs-Bands # 5.9 K/CMM 1.5 - 8.1 12/14/2013 [facility] HEMATOLOGY Eosinophils # 0.8 K/CMM 0.0 - 0.5 12/14/2013 [facility] HEMATOLOGY Basophils # 0.0 K/CMM 0.0 - 0.2 12/14/2013 [facility] HEMATOLOGY Eosinophils 7.3 % 0.0 - 4.0 12/14/2013 [facility] HEMATOLOGY Basophils 0.3 % 0.0 - 1.0 12/14/2013 [facility] HEMATOLOGY Monocytes # 0.7 K/CMM 0.0 - 0.8 12/14/2013 [facility] Lymphocytes 35.1 % 20.0 - 40.0 12/14/2013 [facility] HEMATOLOGY Monocytes 5.8 % 2.0 - 12.0 12/14/2013 [facility] HEMATOLOGY Segs 51.5 % 45.0 - 75.0 12/14/2013 [facility] PTT 31.5 s 22.9 - 35.8 12/14/2013 4Interpretive Data: Heparin Therapeutic Range: 57 - 92 Seconds [facility] INR 1.00 0.85 - 1.17 12/14/2013 3Interpretive Data: RECOMMENDED RANGES FOR PROTIME INR: 2.0-3.0 for most medical and surgical thromboembolic states. 2.5-3.5 for artificial heart valves and recurrent embolism. INR SHOULD BE USED ONLY FOR PATIENTS ON STABLE ANTICOAGULANT THERAPY. [facility] PT 13.1 s 12.0 - 14.7 12/14/2013 [facility] MPV 9.3 fL 7.4 - 10.4 12/14/2013 [facility] WBC 11.5 K/CMM 3.7 - 10.4 12/14/2013 [facility] Hgb 14.1 g/dL 12.0 - 16.0 12/14/2013 [facility] RBC 5.19 M/CMM 4.20 - 5.40 12/14/2013 [facility] Hct 41.6 % 36.0 - 48.0 12/14/2013 [facility] MCH 27.1 pg 27.0 - 31.0 12/14/2013 [facility] MCV 80.1 fL 81.0 - 99.0 12/14/2013 [facility] MCHC 33.9 g/dL 32.0 - 36.0 12/14/2013 [facility] Platelet 251 K/CMM 133 - 450 12/14/2013 [facility] RDW 17.1 % 11.5 - 14.5 12/14/2013 [facility] IMMUNOLOGY CDC HIV 4th GEN Negative (12/14/13 12:06 AM) Negative 12/14/2013 [facility] Vital Signs Vital Sign Value Date Comments Source Weight 207 03/16/2016 2.16.840.1.303108.4.391.. Height 65.0 03/16/2016 2.16.840.1.896683.4.391.11.47001 Temperature Oral (F) 98.1 F 03/16/2016 2.16.840.1.836436.4.391.11.13606 Heart Rate 69 03/16/2016 2.16.840.1.977894.4.391.11.75805 Diastolic (mm Hg) 82 03/16/2016 2.16.840.1.044731.4.391.11.47232 Systolic (mm Hg) 117 03/16/2016 2.16.840.1.318020.4.391.11.19643 Weight 212 02/24/2016 2.16.840.1.933646.4.391.11.48094 Height 65.0 02/24/2016 2.16.840.1.839435.4.391.11.69681 Temperature Oral (F) 98.4 F 02/24/2016 2.16.840.1.893507.4.391.11.12950 Heart Rate 99 02/24/2016 2.16.840.1.941395.4.391.11.31531 Diastolic (mm Hg) 123 02/24/2016 2.16.840.1.993668.4.391.11.83921 Systolic (mm Hg) 151 02/24/2016 2.16.840.1.038838.4.391.11.72630 Weight 221 09/15/2015 2.16.840.1.704328.4.391.11.80327 Height 65.0 09/15/2015 2.16.840.1.861531.4.391.11.07164 Temperature Oral (F) 98.3 F 09/15/2015 2.16.840.1.660872.4.391.11.46776 Heart Rate 81 09/15/2015 2.16.840.1.659636.4.391.11.00404 Diastolic (mm Hg) 93 09/15/2015 2.16.840.1.239692.4.391.11.99931 Systolic (mm Hg) 139 09/15/2015 2.16.840.1.940972.4.391.11.57585 Weight 221 09/08/2015 2.16.840.1.876599.4.391.11.07327 Height 65.0 09/08/2015 2.16.840.1.667870.4.391.11.03220 Temperature Oral (F) 98.9 F 09/08/2015 2.16.840.1.785802.4.391.11.00352 Heart Rate 92 09/08/2015 2.16.840.1.146611.4.391.11.98124 Diastolic (mm Hg) 81 09/08/2015 2.16.840.1.586794.4.391.11.92414 Systolic (mm Hg) 122 09/08/2015 2.16.840.1.696174.4.391.11.18537 Weight 222.7 09/02/2015 2.16.840.1.454773.4.391.11.68329 Height 65.0 09/02/2015 2.16.840.1.246684.4.391.11.66170 Temperature Oral (F) 98.5 F 09/02/2015 2.16.840.1.052171.4.391.11.63082 Heart Rate 76 09/02/2015 2.16.840.1.795062.4.391.11.97750 Diastolic (mm Hg) 113 09/02/2015 2.16.840.1.292284.4.391.11.53554 Systolic (mm Hg) 181 09/02/2015 2.16.840.1.688547.4.391.11.20176 Weight 217 08/26/2015 2.16.840.1.000570.4.391.11.15818 Height 65.0 08/26/2015 2.16.840.1.073526.4.391.11.30547 Temperature Oral (F) 98.5 F 08/26/2015 2.16.840.1.109567.4.391.11.34345 Heart Rate 104 08/26/2015 2.16.840.1.977700.4.391.11.59975 Diastolic (mm Hg) 87 08/26/2015 2.16.840.1.666198.4.391.11.45565 Systolic (mm Hg) 134 08/26/2015 2.16.840.1.452066.4.391.11.49733 Systolic (mm Hg) 130 08/18/2015 [facility] Diastolic (mm Hg) 65 08/18/2015 [facility] Respitory Rate 18 08/18/2015 [facility] Heart Rate 66 08/18/2015 [facility] Temperature Oral (F) 98.4 F 08/18/2015 [facility] Temperature Oral (F) 98.5 F 08/18/2015 [facility] Systolic (mm Hg) 131 08/18/2015 [facility] Diastolic (mm Hg) 80 08/18/2015 [facility] Heart Rate 62 08/18/2015 [facility] Respitory Rate 18 08/18/2015 [facility] Temperature Oral (F) 97.7 F 08/18/2015 [facility] Systolic (mm Hg) 123 08/18/2015 [facility] Diastolic (mm Hg) 71 08/18/2015 [facility] Heart Rate 67 08/18/2015 [facility] Respitory Rate 18 08/18/2015 [facility] Height 162.56 cm 08/15/2015 [facility] Weight 100.909 08/15/2015 [facility] BMI Calculated 38.19 08/15/2015 [facility] Weight 96.364 08/14/2015 [facility] Height 162.56 cm 08/14/2015 [facility] BMI Calculated 36.47 08/14/2015 [facility] Weight 218 07/29/2015 2.16.840.1.510792.4.391.11.50900 Height 65.0 07/29/2015 2.16.840.1.055740.4.391.11.47490 Temperature Oral (F) 98.2 F 07/29/2015 2.16.840.1.622603.4.391.11.25584 Heart Rate 63 07/29/2015 2.16.840.1.150967.4.391.11.20375 Diastolic (mm Hg) 75 07/29/2015 2.16.840.1.143210.4.391.11.60600 Systolic (mm Hg) 145 07/29/2015 2.16.840.1.135957.4.391.11.67107 Weight 223 07/22/2015 2.16.840.1.733976.4.391.11.05871 Height 65.0 07/22/2015 2.16.840.1.659370.4.391.11.33454 Temperature Oral (F) 98.8 F 07/22/2015 2.16.840.1.115438.4.391.11.00347 Heart Rate 85 07/22/2015 2.16.840.1.288610.4.391.11.23956 Diastolic (mm Hg) 76 07/22/2015 2.16.840.1.886627.4.391.11.68385 Systolic (mm Hg) 126 07/22/2015 2.16.840.1.290993.4.391.11.15112 Weight 222.7 07/08/2015 2.16.840.1.877449.4.391.11.81165 Height 65.0 07/08/2015 2.16.840.1.222341.4.391.11.86553 Temperature Oral (F) 99.3 F 07/08/2015 2.16.840.1.253587.4.391.11.55189 Heart Rate 87 07/08/2015 2.16.840.1.599505.4.391.11.96506 Diastolic (mm Hg) 82 07/08/2015 2.16.840.1.815825.4.391.11.85340 Systolic (mm Hg) 115 07/08/2015 2.16.840.1.602696.4.391.11.14056 Respitory Rate 20 11/13/2014 [facility] Heart Rate 77 11/13/2014 [facility] Temperature Oral (F) 97.9 F 11/13/2014 [facility] Systolic (mm Hg) 126 11/13/2014 [facility] Diastolic (mm Hg) 79 11/13/2014 [facility] Heart Rate 64 11/12/2014 [facility] Respitory Rate 18 11/12/2014 [facility] Systolic (mm Hg) 159 11/12/2014 [facility] Diastolic (mm Hg) 94 11/12/2014 [facility] Temperature Oral (F) 97.4 F 11/12/2014 [facility] Heart Rate 64 11/12/2014 [facility] Respitory Rate 18 11/12/2014 [facility] Systolic (mm Hg) 168 11/12/2014 [facility] Diastolic (mm Hg) 118 11/12/2014 [facility] Weight 95.455 11/12/2014 [facility] BMI Calculated 32.96 11/12/2014 [facility] Height 170.18 cm 11/12/2014 [facility] Temperature Oral (F) 98.9 F 11/12/2014 [facility] Systolic (mm Hg) 114 12/14/2013 [facility] Diastolic (mm Hg) 72 12/14/2013 [facility] Respitory Rate 18 12/14/2013 [facility] Temperature Oral (F) 97.6 F 12/14/2013 [facility] Heart Rate 80 12/14/2013 [facility] Diastolic (mm Hg) 58 12/14/2013 [facility] Systolic (mm Hg) 99 12/14/2013 [facility] Heart Rate 70 12/14/2013 [facility] Respitory Rate 18 12/14/2013 [facility] Temperature Oral (F) 97.5 F 12/14/2013 [facility] Diastolic (mm Hg) 55 12/14/2013 [facility] Systolic (mm Hg) 104 12/14/2013 [facility] Respitory Rate 18 12/14/2013 [facility] Heart Rate 86 12/14/2013 [facility] Weight 102.273 12/14/2013 [facility] BMI Calculated 38.7 12/14/2013 [facility] Height 162.56 cm 12/14/2013 [facility] Temperature Oral (F) 98.1 F 12/14/2013 [facility] Encounters Location Location Details Encounter Type Encounter Number Reason For Visit Attending Provider ADM Date DC Date Status Source [facility] [id number] Estelle Cullen 12/14/2013 12/14/2013 [facility] [id number] Jane Tiffani 11/12/2014 11/13/2014 [facility] EST W/PCP [id number] 07/08/2015 07/08/2015 2.16.840.1.306557.4.391.11.00636 [facility] EST W/PCP [id number] 07/08/2015 07/08/2015 2.16.840.1.509029.4.391.11.95756 [facility] EST W/PCP [id number] 07/08/2015 07/08/2015 2.16.840.1.042902.4.391.11.02851 [facility] EST W/PCP [id number] 07/08/2015 07/08/2015 2.16.840.1.534139.4.391.11.54318 [facility] EST W/PCP [id number] 07/08/2015 07/08/2015 2.16.840.1.766458.4.391.11.27571 [facility] EST W/PCP [id number] 07/08/2015 07/08/2015 2.16.840.1.663113.4.391.11.87500 [facility] EST W/PCP [id number] 07/08/2015 07/08/2015 2.16.840.1.497137.4.391.11.95933 [facility] EST W/PCP [id number] 07/08/2015 07/08/2015 2.16.840.1.442549.4.391.11.50073 [facility] EST W/PCP [id number] 07/08/2015 07/08/2015 2.16.840.1.524432.4.391.11.27917 [facility] EST W/PCP [id number] 07/08/2015 07/08/2015 2.16.840.1.544729.4.391.11.82870 [facility] EST W/PCP 7v56873q-13q0-4w68-a4s5-012740w8l4y7 07/08/2015 07/08/2015 2.16.840.1.025408.4.391.11.62719 [facility] EST W/PCP 831f05k2-0d8v-33ur-276n-501b01u8c375 07/08/2015 07/08/2015 2.16.840.1.272692.4.391.11.57033 [facility] EST W/PCP on7808a0-15u3-2182-017p-665g69152q45 07/08/2015 07/08/2015 2.16.840.1.949270.4.391.11.06857 [facility] EST W/PCP 6rid044l-47v3-5ac5-2257-cxq2id79741u 07/08/2015 07/08/2015 2.16.840.1.450674.4.391.11.47481 [facility] EST W/PCP 252em2i0-vdu0-7ue8-v183-56464v90j0gd 07/08/2015 07/08/2015 2.16.840.1.419310.4.391.11.96261 [facility] EST W/PCP wk736076-2d8u-50hf-r1k7-78974cy27l37 07/08/2015 07/08/2015 2.16.840.1.555078.4.391.11.41317 [facility] EST W/PCP 84245910-l306-7h27-083t-h79f0i8c830f 07/08/2015 07/08/2015 2.16.840.1.935056.4.391.11.82402 [facility] EST W/PCP 339l666h-9097-5j13-7gp4-26p73m992ng5 07/08/2015 07/08/2015 2.16.840.1.242860.4.391.11.77081 [facility] EST W/PCP h68wp76f-m11m-9720-433x-s9r643fby073 07/08/2015 07/08/2015 2.16.840.1.902452.4.391.11.48896 [facility] EST W/PCP b1pi4j57-97a9-5rq6-m8q6-f6ld95a68dhl 07/08/2015 07/08/2015 2.16.840.1.189650.4.391.11.60128 [facility] EST W/PCP 1m96d905-37lz-3v15-1x6s-79804861599g 07/08/2015 07/08/2015 2.16.840.1.391202.4.391.11.02887 [facility] EST W/PCP 7p819793-7672-80fx-1j1t-89c7xs7a96m4 07/08/2015 07/08/2015 2.16.840.1.570902.4.391.11.81762 [facility] EST W/PCP 10569uqi-4hsi-08hj-55eq-68801cu8w2fp 07/08/2015 07/08/2015 2.16.840.1.513023.4.391.11.58388 [facility] EST W/PCP 2752619l-6g79-6610-ouab-852l9y3s4i7l 07/08/2015 07/08/2015 2.16.840.1.338637.4.391.11.53566 [facility] EST W/PCP 53b553m2-1drk-07bi-sp21-y7517c48f3rf 07/08/2015 07/08/2015 2.16.840.1.643957.4.391.11.96428 [facility] EST W/PCP 2j3ut1sg-16s2-07p0-q4q7-58j95juzn24f 07/08/2015 07/08/2015 2.16.840.1.574502.4.391.11.86276 [facility] EST W/PCP z9ame9cd-w181-50t3-8g78-dq7297ib72tz 07/08/2015 07/08/2015 2.16.840.1.364475.4.391.11.80689 [facility] EST W/PCP 1814acyp-9rvz-1379-9862-u781q63y6np4 07/08/2015 07/08/2015 2.16.840.1.026322.4.391.11.63085 [facility] EST W/PCP 518j99k3-t070-4s0a-7f9x-4z347rv90191 07/08/2015 07/08/2015 2.16.840.1.093423.4.391.11.25073 [facility] 2 week f/u nz960k82-yjc1-61d6-4c38-3kyyg03nlvu3 07/22/2015 07/22/2015 2.16.840.1.267169.4.391.11.84738 [facility] 2 week f/u n52181w0-68x1-34vr-7w17-m42a8426hgt0 07/22/2015 07/22/2015 2.16.840.1.841577.4.391.11.84518 [facility] 2 week f/u j66w3342-yt34-7i59-6d0g-111x834s060h 07/22/2015 07/22/2015 2.16.840.1.860113.4.391.11.91240 [facility] 2 week f/u 2193si48-29w3-8wfw-480n-43gz64t6ny7s 07/22/2015 07/22/2015 2.16.840.1.701702.4.391.11.47200 [facility] 2 week f/u h86bo576-3b47-8121-583g-404482c1h671 07/22/2015 07/22/2015 2.16.840.1.382836.4.391.11.63111 [facility] 2 week f/u wf8h2n50-z4u4-88g3-h59f-inz32x23t6a6 07/22/2015 07/22/2015 2.16.840.1.477711.4.391.11.94189 [facility] 2 week f/u 5yi3whw8-348f-8z7p-fk72-g0u90526567i 07/22/2015 07/22/2015 2.16.840.1.550501.4.391.11.90327 [facility] 2 week f/u 7ym067nr-13sc-1ja8-8834-8vb09z82454f 07/22/2015 07/22/2015 2.16.840.1.170403.4.391.11.66880 [facility] 2 week f/u 2i35485l-0dpg-9k33-2340-z1s96q4kw7f7 07/22/2015 07/22/2015 2.16.840.1.649184.4.391.11.99840 [facility] 2 week f/u 23257cd4-x24b-5i0p-10mf-58ul85w03dj4 07/22/2015 07/22/2015 2.16.840.1.204146.4.391.11.39181 [facility] 2 week f/u 8c7zmep4-8w29-28fi-on81-0e480j8ys9st 07/22/2015 07/22/2015 2.16.840.1.266567.4.391.11.45126 [facility] 2 week f/u gv308op9-l7cp-9g64-ca84-m7420o643963 07/22/2015 07/22/2015 2.16.840.1.907622.4.391.11.78843 [facility] 2 week f/u 605xa03d-0dqw-4624-h39t-8z5435nsk5o0 07/22/2015 07/22/2015 2.16.840.1.424212.4.391.11.41468 [facility] 2 week f/u 2j39m78o-90se-51o4-i04k-y86t392i9je2 07/22/2015 07/22/2015 2.16.840.1.246393.4.391.11.30998 [facility] 2 week f/u h7r09sh7-wa0x-0q81-1m6y-6c561t5ud7lr 07/22/2015 07/22/2015 2.16.840.1.402270.4.391.11.55638 [facility] 2 week f/u b61z1u8f-96q1-3e32-48ya-2j5m5uk535ho 07/22/2015 07/22/2015 2.16.840.1.661032.4.391.11.39851 [facility] 2 week f/u 61m306li-25j1-55g2-7oc6-s8a740154fq5 07/22/2015 07/22/2015 2.16.840.1.792740.4.391.11.38513 [facility] 2 week f/u 1124o7w6-4z44-78bo-jajj-g176vjb6b092 07/22/2015 07/22/2015 2.16.840.1.134547.4.391.11.23333 [facility] 2 week f/u 9x6835q9-5937-8328-9226-f047y57agjx2 07/22/2015 07/22/2015 2.16.840.1.938827.4.391.11.67007 [facility] 2 week f/u av6rp455-b07x-7y9h-67of-f028i970457o 07/22/2015 07/22/2015 2.16.840.1.063195.4.391.11.04558 [facility] 2 week f/u mn19t41x-657w-523t-83ze-6cu82d9282l8 07/22/2015 07/22/2015 2.16.840.1.895556.4.391.11.32981 [facility] 2 week f/u v93m8839-3zc1-37l2-91vr-470kr0w7525a 07/22/2015 07/22/2015 2.16.840.1.641534.4.391.11.94168 [facility] 2 week f/u t86810ar-1b37-322f-xdhq-9466z4s749xx 07/22/2015 07/22/2015 2.16.840.1.640118.4.391.11.29504 [facility] 2 week f/u 66164268-g339-95w3-n486-8a0706760325 07/22/2015 07/22/2015 2.16.840.1.150284.4.391.11.45278 [facility] 2 week f/u 3q0klsgx-i6e8-1950-e297-ph8dshukrj7s 07/22/2015 07/22/2015 2.16.840.1.463218.4.391.11.93205 [facility] 2 week f/u 9s9v7w82-j026-55h9-e870-722gu6c5776a 07/22/2015 07/22/2015 2.16.840.1.954459.4.391.11.32989 [facility] 2 week f/u 4d5yvt1x-op67-938v-tgl4-c1a2o16pxi4t 07/22/2015 07/22/2015 2.16.840.1.406597.4.391.11.00353 [facility] 2 week f/u vx421a16-0452-9fz9-k974-9j1j44vk89t3 07/22/2015 07/22/2015 2.16.840.1.706094.4.391.11.50732 [facility] Unknown 9f4u25u0-0g77-411l-173w-90y0ud244457 07/29/2015 07/29/2015 2.16.840.1.362427.4.391.11.11250 [facility] Unknown h4y4un28-hw25-4bto-o428-z0srq4zn9710 07/29/2015 07/29/2015 2.16.840.1.929758.4.391.11.23571 [facility] Unknown 652gg164-mff3-00a1-901z-k2lxj585m8a1 07/29/2015 07/29/2015 2.16.840.1.795880.4.391.11.40254 [facility] Unknown 869546gd-0fh0-4754-2gxh-6241p6dcq621 07/29/2015 07/29/2015 2.16.840.1.368910.4.391.11.73436 [facility] Unknown 0cd8e7l7-z595-57t3-1788-7997s57a3s4u 07/29/2015 07/29/2015 2.16.840.1.400901.4.391.11.98285 [facility] Unknown 94hf2h41-h46f-67y9-9i73-ml6gmk31zi43 07/29/2015 07/29/2015 2.16.840.1.191552.4.391.11.16188 [facility] Unknown 92z572m1-06p2-318o-320x-44640l64dwii 07/29/2015 07/29/2015 2.16.840.1.732644.4.391.11.56552 [facility] Unknown 9j65222l-o43l-1v87-1s4k-g9m8456x4f94 07/29/2015 07/29/2015 2.16.840.1.184477.4.391.11.08451 [facility] Unknown 921iq85h-35t0-5hnb-oey1-h7n37e2t290j 07/29/2015 07/29/2015 2.16.840.1.251175.4.391.11.42362 [facility] Unknown 4hlt221h-2wx7-2b44-kgqr-1n0897794489 07/29/2015 07/29/2015 2.16.840.1.846405.4.391.11.86093 [facility] Unknown 2216ap7y-d489-20e4-lm78-39711o42v740 07/29/2015 07/29/2015 2.16.840.1.026160.4.391.11.36866 [facility] Unknown 2g9mn44r-9620-1361-71v8-pr650092if1z 07/29/2015 07/29/2015 2.16.840.1.597015.4.391.11.78586 [facility] Unknown fb4r7lx5-x144-2d36-c8i3-92629z6055m7 07/29/2015 07/29/2015 2.16.840.1.043469.4.391.11.68112 [facility] Unknown 0f92ie26-5b52-47pa-717j-8i896rh3024h 07/29/2015 07/29/2015 2.16.840.1.532102.4.391.11.04442 [facility] Unknown ix0r8l5j-kmdr-74u3-z492-0s7o65v1j3o9 07/29/2015 07/29/2015 2.16.840.1.257556.4.391.11.62905 [facility] Unknown z02z053j-9p8w-15d4-r30t-r4iv358u37tw 07/29/2015 07/29/2015 2.16.840.1.820960.4.391.11.49846 [facility] Unknown kk6d3ps7-21n3-94b3-8g31-73v26sly52o8 07/29/2015 07/29/2015 2.16.840.1.240801.4.391.11.15233 [facility] Unknown 7k724nev-k4uz-8812-hr81-w448jtg7722g 07/29/2015 07/29/2015 2.16.840.1.769276.4.391.11.85855 [facility] Unknown 436br18v-c012-5451-499w-7cok3i88770l 07/29/2015 07/29/2015 2.16.840.1.669290.4.391.11.10505 [facility] Unknown d2i3028h-2x7p-1i09-u4zk-d2l0sh352ia4 07/29/2015 07/29/2015 2.16.840.1.665398.4.391.11.84420 [facility] Unknown y692732h-0668-68y5-z17i-wwq31r70k653 07/29/2015 07/29/2015 2.16.840.1.675131.4.391.11.33090 [facility] Unknown 174kk547-4220-2ob3-i1l5-0w8k058du9q8 07/29/2015 07/29/2015 2.16.840.1.482920.4.391.11.10348 [facility] Unknown 294nas3e-5j99-2d3r-yf2i-6bwy36611046 07/29/2015 07/29/2015 2.16.840.1.796458.4.391.11.39576 [facility] Unknown dz874re9-z104-5iv4-2258-3s9wl2c15493 07/29/2015 07/29/2015 2.16.840.1.230324.4.391.11.88984 [facility] Unknown 557ax1a4-uob0-449c-ivbb-myj3r90g8nu4 07/29/2015 07/29/2015 2.16.840.1.191342.4.391.11.26621 [facility] Unknown 0g5e0f20-r78y-75xe-x3nr-84vmw89pj4c4 07/29/2015 07/29/2015 2.16.840.1.451068.4.391.11.13064 [facility] Unknown 5ft578c5-oae6-9h91-c982-b0g134kh48x9 07/29/2015 07/29/2015 2.16.840.1.469052.4.391.11.51624 [facility] Unknown 5l9045f9-4914-3q08-031b-86389z0098k0 07/29/2015 07/29/2015 2.16.840.1.340765.4.391.11.70655 [facility] Unknown i52dyc5h-68v9-50g6-i9y4-47evs8z014vy 08/11/2015 08/11/2015 2.16.840.1.389590.4.391.11.28530 [facility] Unknown 15bh557g-29a4-7q1x-l2p8-t483c56j9l8l 08/11/2015 08/11/2015 2.16.840.1.770558.4.391.11.68745 [facility] Unknown eb397430-97d1-4v99-r89y-uuv99189162v 08/11/2015 08/11/2015 2.16.840.1.188413.4.391.11.36571 [facility] Unknown 2pub4f05-bk91-4v9w-s79v-1u08og92322n 08/11/2015 08/11/2015 2.16.840.1.656819.4.391.11.69232 [facility] Unknown ek9v7t4u-36cl-59a1-yfch-c3ky616156m8 08/11/2015 08/11/2015 2.16.840.1.885609.4.391.11.66314 [facility] Unknown 6v524497-9949-4q30-82f5-n72836373q59 08/11/2015 08/11/2015 2.16.840.1.618394.4.391.11.21184 [facility] Unknown 7oo56709-6mgc-9906-k48c-415t171g1z6t 08/11/2015 08/11/2015 2.16.840.1.855940.4.391.11.68023 [facility] Unknown m1v73523-0707-1tx4-h527-jep9743r2a2d 08/11/2015 08/11/2015 2.16.840.1.972375.4.391.11.04018 [facility] Unknown 9p6v469y-42o7-9323-b87a-63j021981650 08/11/2015 08/11/2015 2.16.840.1.333792.4.391.11.76060 [facility] Unknown 2438c291-1q66-5x70-746q-14k85824688j 08/11/2015 08/11/2015 2.16.840.1.304052.4.391.11.61996 [facility] Unknown sg2l2g37-j201-666x-l99j-f3blggc98950 08/11/2015 08/11/2015 2.16.840.1.148212.4.391.11.76589 [facility] Unknown jtz2p063-na6w-8s05-v3f5-4t7900z6d438 08/11/2015 08/11/2015 2.16.840.1.208389.4.391.11.37995 [facility] Unknown 207y4308-i151-332t-53l3-74098b4tdnsv 08/11/2015 08/11/2015 2.16.840.1.964034.4.391.11.15407 [facility] Unknown 62e3nkg6-590r-7n1a-8515-c793i8b00794 08/11/2015 08/11/2015 2.16.840.1.457489.4.391.11.00886 [facility] Unknown 8x901p48-7a52-48t4-b3l5-zw98a51tp140 08/11/2015 08/11/2015 2.16.840.1.667395.4.391.11.93092 [facility] Unknown 1cvc159c-v3x8-58qy-493v-2yj2vq5f2g13 08/11/2015 08/11/2015 2.16.840.1.698115.4.391.11.44665 [facility] Unknown tt71qts1-0l38-2i1g-5489-1918765b2580 08/11/2015 08/11/2015 2.16.840.1.381204.4.391.11.20739 [facility] Unknown 860um84c-i149-5e50-ce6p-862r913027g7 08/11/2015 08/11/2015 2.16.840.1.703075.4.391.11. [facility] Unknown yd0x1590-hp03-054e-3629-620f63f79bru 08/11/2015 08/11/2015 2.16.840.1.220117.4.391.11.85985 [facility] Unknown 38b9ot9x-8m1k-62xr-46c4-694w3tz23q32 08/11/2015 08/11/2015 2.16.840.1.910519.4.391.11.71021 [facility] Unknown 04528944-x56c-1hww-361a-o334r111h8x9 08/11/2015 08/11/2015 2.16.840.1.967527.4.391.11.45231 [facility] Unknown 9vm2333l-91h7-709g-3357-76usm8ono186 08/11/2015 08/11/2015 2.16.840.1.406283.4.391.11.76932 [facility] Unknown 9o248762-760q-9418-g538-q16778f72jt4 08/11/2015 08/11/2015 2.16.840.1.533291.4.391.11.49743 [facility] Unknown m08048a6-ya6e-04d8-3w4n-a5788srp30h4 08/11/2015 08/11/2015 2.16.840.1.749515.4.391.11.63057 [facility] Unknown 24673snq-02r4-91nq-s3s7-8axw19q43e3s 08/11/2015 08/11/2015 2.16.840.1.969534.4.391.11.28763 [facility] Unknown 15m6w43w-1949-5b90-53on-l9n1kko8i798 08/11/2015 08/11/2015 2.16.840.1.511274.4.391.11.64803 [facility] Unknown 6yaw2451-p1t3-6927-5t15-k1c13iq5535n 08/11/2015 08/11/2015 2.16.840.1.146193.4.391.11.28013 [facility] Unknown k12c129a-5y48-4399-4vv3-ck0g88a2j5gj 08/11/2015 08/11/2015 2.16.840.1.265385.4.391.11.61110 [facility] Unknown 6zn40o0f-krv9-73a3-hh98-q853uk462434 08/11/2015 08/11/2015 2.16.840.1.461375.4.391.11.73014 [facility] Unknown 24di4760-kk05-2j5o-1955-wz19133rm047 08/11/2015 08/11/2015 2.16.840.1.081672.4.391.11.46422 [facility] Unknown 90p2g7p6-2832-67p6-f0h4-2y239z7m5mq8 08/11/2015 08/11/2015 2.16.840.1.942333.4.391.11.77726 [facility] [id number] Adradha Faizan 08/14/2015 08/18/2015 [facility] Unknown 3dmoaz0a-83x1-81o7-nzm2-8ac40546gfv3 08/22/2015 08/22/2015 2.16.840.1.177275.4.391.11.11151 [facility] Unknown tzz70lx1-1861-1r4p-v062-8859e9ikc743 08/22/2015 08/22/2015 2.16.840.1.690080.4.391.11.22555 [facility] Unknown 7263dbg4-k200-4zv9-802b-014xsh61x36s 08/22/2015 08/22/2015 2.16.840.1.445633.4.391.11.72299 [facility] Unknown [id number]-4091-1t14-3321-7v830281e116 08/22/2015 08/22/2015 2.16.840.1.119618.4.391.11.51053 [facility] Unknown 4b9emw69-38f5-14a5-ii67-993lppbh58d7 08/22/2015 08/22/2015 2.16.840.1.361165.4.391.11.14389 [facility] Unknown e0860h52-2gk9-1153-7567-87lse9193g19 08/22/2015 08/22/2015 2.16.840.1.125091.4.391.11.94745 [facility] Unknown 37ip354a-79g5-1ek2-199a-80b6j363vs12 08/22/2015 08/22/2015 2.16.840.1.036422.4.391.11.93801 [facility] Unknown 87u736uw-korq-85i7-36u8-765a61659040 08/22/2015 08/22/2015 2.16.840.1.523636.4.391.11.26235 [facility] Unknown 1174nuw2-u142-0d8i-2n41-0o196sm52qy2 08/22/2015 08/22/2015 2.16.840.1.964802.4.391.11.15268 [facility] Unknown sqb1l914-uv38-8l55-pt5r-42098m7r00v2 08/22/2015 08/22/2015 2.16.840.1.597692.4.391.11.66186 [facility] Unknown 6in37my6-d1l6-3cs4-59c3-008n601hpw4f 08/22/2015 08/22/2015 2.16.840.1.099812.4.391.11.29473 [facility] Unknown [id number]-cc14-47542b804406 08/22/2015 08/22/2015 2.16.840.1.263096.4.391.11.65229 [facility] Unknown 2uy9wf8b-24j3-6ffz-co55-9982p39cgy6j 08/22/2015 08/22/2015 2.16.840.1.443719.4.391.11.68501 [facility] Unknown 87022y0b-2878-7y15-d660-o5u8o94q1586 08/22/2015 08/22/2015 2.16.840.1.514924.4.391.11.27440 [facility] Unknown 5h670f38-1h0a-203w-gqn4-7dl3u9b56wth 08/22/2015 08/22/2015 2.16.840.1.137262.4.391.11.46164 [facility] Unknown 870rd2jv-14d1-601d-d0wq-t5642ij786ij 08/22/2015 08/22/2015 2.16.840.1.075066.4.391.11.07613 [facility] Unknown b576r3n4-0lm1-4268-43zd-85d03ffl9471 08/22/2015 08/22/2015 2.16.840.1.388583.4.391.11.48013 [facility] Unknown mb602s1o-9576-2k58-zv80-9q54z2392g83 08/22/2015 08/22/2015 2.16.840.1.249179.4.391.11.85453 [facility] Unknown q8742370-zf78-9849-qcu7-n9q34lgnx163 08/22/2015 08/22/2015 2.16.840.1.267933.4.391.11.98646 [facility] Unknown 8l3ql3r6-837d-432u-a598-z7g9014y76z4 08/22/2015 08/22/2015 2.16.840.1.635638.4.391.11.94153 [facility] Unknown 49640g16-98m4-203w-762s-63bs0d00b3h2 08/22/2015 08/22/2015 2.16.840.1.583309.4.391.11.64261 [facility] Unknown 028ru377-3a82-83j3-0cpm-zqs44lkt7e0x 08/22/2015 08/22/2015 2.16.840.1.016215.4.391.11.42026 [facility] Unknown s135jf91-0m5n-98r6-0575-56092d7b27rf 08/22/2015 08/22/2015 2.16.840.1.155176.4.391.11.83995 [facility] Unknown 0785ez6a-f74k-8488-840r-3k34fwb9di8k 08/22/2015 08/22/2015 2.16.840.1.311061.4.391.11.39027 [facility] Unknown 3pux853x-12hu-8881-m2kn-1ep31t801c23 08/22/2015 08/22/2015 2.16.840.1.291981.4.391.11.76683 [facility] Unknown wrr3e9z5-w94b-3gd7-8o9b-391845m687w9 08/22/2015 08/22/2015 2.16.840.1.848692.4.391.11.37963 [facility] Unknown tm990f03-4439-6r0v-et7f-76m511e903wp 08/22/2015 08/22/2015 2.16.840.1.282490.4.391.11.53540 [facility] Unknown j27e3np2-38s3-2q3r-5t7s-5bw8vt1bzy3r 08/22/2015 08/22/2015 2.16.840.1.018888.4.391.11.27919 [facility] Unknown m112t97x-i259-9z08-6943-c21d6id6ts15 08/22/2015 08/22/2015 2.16.840.1.354418.4.391.11.17817 [facility] Unknown 468682x7-z735-9yv0-6r54-54749u8j27a0 08/22/2015 08/22/2015 2.16.840.1.975295.4.391.11.68259 [facility] Unknown mxv64t89-g37u-3h29-9432-3627nbv7h58l 08/26/2015 08/26/2015 2.16.840.1.549155.4.391.11.53561 [facility] Unknown ok029379-1i88-6l1r-n4ui-4fj9syh6qgkm 08/26/2015 08/26/2015 2.16.840.1.716348.4.391.11.13223 [facility] Unknown z5815y71-09l4-1h37-i9g8-y1hx26d9927s 08/26/2015 08/26/2015 2.16.840.1.396457.4.391.11.92171 [facility] Unknown 7a5i0301-wm5u-745g-3rws-g4q82ea37y75 08/26/2015 08/26/2015 2.16.840.1.631683.4.391.11.96516 [facility] Unknown a66e5x0g-7ow9-5r2j-m30q-37xdqg8b3k33 08/26/2015 08/26/2015 2.16.840.1.037524.4.391.11.22883 [facility] Unknown [id number]-hu54-68x9-im74-2216291qr590 08/26/2015 08/26/2015 2.16.840.1.211174.4.391.11.68092 [facility] Unknown 0736n939-18y5-40j2-66e1-j21h7z326350 08/26/2015 08/26/2015 2.16.840.1.470079.4.391.11.26459 [facility] Unknown [id number]-e133-88c3-zi07-bwm86637i23k 08/26/2015 08/26/2015 2.16.840.1.074238.4.391.11.45228 [facility] Unknown [id number]-n58p-3n8r-3598-9gia187c349e 08/26/2015 08/26/2015 2.16.840.1.961960.4.391.11.45155 [facility] Unknown 3sl3871i-9s16-61gu-08ae-l286bx93w9pn 08/26/2015 08/26/2015 2.16.840.1.766112.4.391.11.89641 [facility] Unknown 38170io7-9255-3s72-8w5a-80buca6dh163 08/26/2015 08/26/2015 2.16.840.1.718361.4.391.11.32366 [facility] Unknown [id number] 08/26/2015 08/26/2015 2.16.840.1.299363.4.391.11.68367 [facility] Unknown [id number] 08/26/2015 08/26/2015 2.16.840.1.740620.4.391.11.90031 [facility] Unknown [id number] 08/26/2015 08/26/2015 2.16.840.1.609450.4.391.11.20665 [facility] Unknown [id number] 08/26/2015 08/26/2015 2.16.840.1.128576.4.391.11.23683 [facility] Unknown [id number] 08/26/2015 08/26/2015 2.16.840.1.358768.4.391.11.53714 [facility] Unknown [id number]-6061-x232-[id number] 08/26/2015 08/26/2015 2.16.840.1.566625.4.391.11.16768 [facility] Unknown [id number] 08/26/2015 08/26/2015 2.16.840.1.453658.4.391.11.80385 [facility] Unknown [id number] 08/26/2015 08/26/2015 2.16.840.1.985521.4.391.11.75351 [facility] Unknown [id number] 08/26/2015 08/26/2015 2.16.840.1.403650.4.391.11.65265 [facility] Unknown [id number] 08/26/2015 08/26/2015 2.16.840.1.824158.4.391.11.41140 [facility] Unknown [id number] 08/26/2015 08/26/2015 2.16.840.1.719624.4.391.11.55883 [facility] Unknown [id number] 08/26/2015 08/26/2015 2.16.840.1.225507.4.391.11.01240 [facility] Unknown [id number] 08/26/2015 08/26/2015 2.16.840.1.051915.4.391.11.87400 [facility] Unknown [id number] 09/02/2015 09/02/2015 2.16.840.1.636868.4.391.11.00034 [facility] Unknown [id number] 09/02/2015 09/02/2015 2.16.840.1.746997.4.391.11.31336 [facility] Unknown [id number] 09/02/2015 09/02/2015 2.16.840.1.314538.4.391.11.48910 [facility] Unknown [id number] 09/02/2015 09/02/2015 2.16.840.1.678667.4.391.11.09015 [facility] Unknown [id number] 09/02/2015 09/02/2015 2.16.840.1.320819.4.391.11.87299 [facility] Unknown [id number] 09/02/2015 09/02/2015 2.16.840.1.679797.4.391.11.57150 [facility] Unknown [id number]-[id number] 09/02/2015 09/02/2015 2.16.840.1.176064.4.391.11.47765 [facility] Unknown [id number] 09/02/2015 09/02/2015 2.16.840.1.677222.4.391.11.14539 [facility] Unknown [id number] 09/02/2015 09/02/2015 2.16.840.1.429817.4.391.11.39265 [facility] Unknown [id number] 09/02/2015 09/02/2015 2.16.840.1.605365.4.391.11.91988 [facility] Unknown [id number] 09/02/2015 09/02/2015 2.16.840.1.691676.4.391.11.63699 [facility] Unknown [id number] 09/02/2015 09/02/2015 2.16.840.1.985236.4.391.11.16563 [facility] Unknown [id number] 09/02/2015 09/02/2015 2.16.840.1.737027.4.391.11.47626 [facility] Unknown [id number] 09/02/2015 09/02/2015 2.16.840.1.517147.4.391.11.71344 [facility] Unknown [id number] 09/02/2015 09/02/2015 2.16.840.1.209480.4.391.11.43543 [facility] Unknown [id number] 09/02/2015 09/02/2015 2.16.840.1.605286.4.391.11.20629 [facility] Unknown [id number] 09/02/2015 09/02/2015 2.16.840.1.264550.4.391.11.04440 [facility] Unknown [id number] 09/02/2015 09/02/2015 2.16.840.1.458061.4.391.11.82523 [facility] Unknown [id number] 09/02/2015 09/02/2015 2.16.840.1.849524.4.391.11.79735 [facility] Unknown [id number] 09/02/2015 09/02/2015 2.16.840.1.212253.4.391.11.51209 [facility] Unknown [id number] 09/02/2015 09/02/2015 2.16.840.1.613127.4.391.11.92613 [facility] Unknown [id number] 09/02/2015 09/02/2015 2.16.840.1.887151.4.391.11.14833 [facility] Unknown [id number] 09/02/2015 09/02/2015 2.16.840.1.444947.4.391.11. [facility] Other, concerns over BP 815ef867-i0r9-9751-66rd-1lt2se1kp2f0 09/03/2015 09/03/2015 2.16.840.1.089170.4.391.11. [facility] Other, concerns over BP [id number]-48o8-3umg-4cou-903cu9671x97 09/03/2015 09/03/2015 2.16.840.1.030227.4.391.11. [facility] Other, concerns over BP 7c8s57h1-de5c-0j54-y3s6-t771d28176t8 09/03/2015 09/03/2015 2.16.840.1.386054.4.391.11. [facility] Other, concerns over BP 5skyq829-9ek3-923c-ctu7-hqs2o378uso1 09/03/2015 09/03/2015 2.16.840.1.798940.4.391.11.49977 [facility] Other, concerns over BP bf1j08fj-3a07-3zqk-w570-j5pyrr0082bd 09/03/2015 09/03/2015 2.16.840.1.165240.4.391.11.85330 [facility] Other, concerns over BP 1t606626-290z-2z3o-5zbi-0928816wv4z1 09/03/2015 09/03/2015 2.16.840.1.130919.4.391.11. [facility] Other, concerns over BP qjy6748l-124y-3z50-4i94-tu9y64z03w81 09/03/2015 09/03/2015 2.16.840.1.498077.4.391.11.00127 [facility] Other, concerns over BP 204a4od3-5460-3509-u2ip-7v4367x3241g 09/03/2015 09/03/2015 2.16.840.1.889539.4.391.11. [facility] Other, concerns over BP 33yj998g-z17r-0179-18py-4l048u8906u9 09/03/2015 09/03/2015 2.16.840.1.194407.4.391.11. [facility] Other, concerns over BP ga92l1z9-n284-5qt6-cevl-4694n9a48798 09/03/2015 09/03/2015 2.16.840.1.502308.4.391.11. [facility] Other, concerns over BP c5274usw-75sf-22zq-vr7b-086bsn8gx760 09/03/2015 09/03/2015 2.16.840.1.537127.4.391.11. [facility] Other, concerns over BP [id number]-6j2n-w0x5-kr8gyio52956 09/03/2015 09/03/2015 2.16.840.1.719058.4.391.11. [facility] Other, concerns over BP z72x763n-k5w9-56aa-pb69-5u1r0219nd15 09/03/2015 09/03/2015 2.16.840.1.742129.4.391.11. [facility] Other, concerns over BP x472n9af-28e8-917m-515i-4434pws017w9 09/03/2015 09/03/2015 2.16.840.1.154292.4.391.11. [facility] Other, concerns over BP 6185l52n-2j9y-60i0-1791-061y01k27pf0 09/03/2015 09/03/2015 2.16.840.1.185853.4.391..74318 [facility] Other, concerns over BP 800qkf33-33dt-79a8-jt6o-69x44c93v856 09/03/2015 09/03/2015 2.16.840.1.009824.4.391.. [facility] Other, concerns over BP 9847r823-1237-096d-7o4k-6g694389d2s6 09/03/2015 09/03/2015 2.16.840.1.844322.4.391.. [facility] Other, concerns over BP xp04op37-t05l-76c6-oi09-2k56847488k6 09/03/2015 09/03/2015 2.16.840.1.799098.4.391.. [facility] Other, concerns over BP 4ydv7r3o-0qx6-984z-dac1-5996zd10155j 09/03/2015 09/03/2015 2.16.840.1.679495.4.391.. [facility] Other, concerns over BP 9e044p89-50l1-586c-3kd3-8c04gnm2g692 09/03/2015 09/03/2015 2.16.840.1.998600.4.391. [facility] Other, concerns over BP v5077x5d-678o-3397-rw1z-80sz80z800vq 09/03/2015 09/03/2015 2.16.840.1.143527.4.391.. [facility] Other, concerns over BP 03i12w3c-8325-6k20-dd1c-1zy5rk35fg2w 09/03/2015 09/03/2015 2.16.840.1.652071.4.391. [facility] Other, concerns over BP 87g29gi6-a2p0-49lu-g9me-71u4640y5p55 09/03/2015 09/03/2015 2.16.840.1.882178.4.391.11.14863 [facility] Other, concerns over BP jaq939i4-25b9-97c3-lmh1-b80t62bwz20g 09/03/2015 09/03/2015 2.16.840.1.027507.4.391.11.67953 [facility] Other, concerns over BP 2p4rt0s2-3r1e-2r08-9nei-8w08tt6dq1n8 09/03/2015 09/03/2015 2.16.840.1.093835.4.391.11. [facility] Other, concerns over BP 45564089-b1b1-245s-359z-x4u7h9c1r84l 09/03/2015 09/03/2015 2.16.840.1.130701.4.391.11.54469 [facility] Unknown r1138in0-5ah2-6z14-27kb-n2durl2o57a7 09/08/2015 09/08/2015 2.16.840.1.389403.4.391.11.47792 [facility] Unknown [id number]-5b78-883x-hq46-e5y8973ai195 09/08/2015 09/08/2015 2.16.840.1.740902.4.391.11. [facility] Unknown [id number]-h54g-346l-4404-461fb10163f1 09/08/2015 09/08/2015 2.16.840.1.251521.4.391.11. [facility] Unknown 453g5k05-2zg1-2146-dv77-2744q5r768fd 09/08/2015 09/08/2015 2.16.840.1.130927.4.391.11. [facility] Unknown [id number]57dbr642c05 09/08/2015 09/08/2015 2.16.840.1.983391.4.391.11. [facility] Unknown rb5tiw4a-680b-98h7-p1ag-1s4197jgn030 09/08/2015 09/08/2015 2.16.840.1.080551.4.391.11.92674 [facility] Unknown [id number]-s1of-a8b521547zih 09/08/2015 09/08/2015 2.16.840.1.467688.4.391.11.60339 [facility] Unknown [id number]-eb45-4120-p9sj-0a252hx515m5 09/08/2015 09/08/2015 2.16.840.1.453584.4.391.11.54429 [facility] Unknown [id number]-kzlg-3v19z4p01418 09/08/2015 09/08/2015 2.16.840.1.901963.4.391.11.68571 [facility] Unknown [id number]-[id number]-n592-a9182t6g2561 09/08/2015 09/08/2015 2.16.840.1.105459.4.391.11.04267 [facility] Unknown cw74q5n9-434s-65zm-n5n5-09458848987f 09/08/2015 09/08/2015 2.16.840.1.521047.4.391.11.01035 [facility] Unknown [id number]-0908-5127-4f03-86952dj4a389 09/08/2015 09/08/2015 2.16.840.1.115219.4.391.11.52154 [facility] Unknown [id number]-8770-9o76-8d5ei6k053dr 09/08/2015 09/08/2015 2.16.840.1.507931.4.391.11.49120 [facility] Unknown [id number]-70fb-9z21-0d54-95s8a40f7dq6 09/08/2015 09/08/2015 2.16.840.1.576072.4.391.11.23181 [facility] Unknown [id number]-a0x5-9359-39wm-58z1665m0ttr 09/08/2015 09/08/2015 2.16.840.1.374551.4.391.11.00887 [facility] Unknown [id number]-[id number] 09/08/2015 09/08/2015 2.16.840.1.788294.4.391.11.91805 [facility] Unknown [id number]-e362-78ax-bxb3-a6ay00k6c15y 09/08/2015 09/08/2015 2.16.840.1.594321.4.391.11.31242 [facility] Unknown njk5npq9-9858-382b-lw5i-e27261so4284 09/08/2015 09/08/2015 2.16.840.1.308584.4.391.11.47164 [facility] Unknown [id number]-eqh8-5v7k-7l6z-82tyt2304697 09/08/2015 09/08/2015 2.16.840.1.990047.4.391.11.23334 [facility] Unknown [id number]-ay55-048f-01m7-6i9t79nr78rw 09/08/2015 09/08/2015 2.16.840.1.617048.4.391.11.58803 [facility] Unknown [id number]-0967-15h3-00ndh2c4r887 09/08/2015 09/08/2015 2.16.840.1.446482.4.391.11.54965 [facility] Unknown [id number]-h2fw5k7961ll 09/08/2015 09/08/2015 2.16.840.1.319422.4.391.11.04255 [facility] Unknown [id number]-m44z-2i757184e3s8 09/08/2015 09/08/2015 2.16.840.1.483762.4.391.11.82710 [facility] Unknown [id number]-g586t0854078 09/15/2015 09/15/2015 2.16.840.1.859245.4.391.11.83319 [facility] Unknown [id number]-crli-87t2-5j7n-2w6ry23i49e4 09/15/2015 09/15/2015 2.16.840.1.364820.4.391.11.32953 [facility] Unknown 650f86d7-z70i-2yf2-6r02-7qi8v96599wt 09/15/2015 09/15/2015 2.16.840.1.419084.4.391.11.24090 [facility] Unknown [id number]-f8b2-5286-y2fq-5177o80w61n9 09/15/2015 09/15/2015 2.16.840.1.147304.4.391.11.00737 [facility] Unknown bsdw647r-262i-49y2-2m14-i3041k908970 09/15/2015 09/15/2015 2.16.840.1.143833.4.391.11.64286 [facility] Unknown [id number]-9jl3-d717-gdm26427v8zu 09/15/2015 09/15/2015 2.16.840.1.861484.4.391.11.48977 [facility] Unknown [id number]-h01h-43p6-y29y-r93v52z86o75 09/15/2015 09/15/2015 2.16.840.1.690263.4.391.11.44913 [facility] Unknown fq5vgpjv-1675-089z-5338-7bej38e26184 09/15/2015 09/15/2015 2.16.840.1.133056.4.391.11.43863 [facility] Unknown [id number]-8s1w-056g-k7ow-m00507413119 09/15/2015 09/15/2015 2.16.840.1.004775.4.391.11.68376 [facility] Unknown [id number]-f2u4-7r2s-z024-602zzpe02614 09/15/2015 09/15/2015 2.16.840.1.987156.4.391.11.91058 [facility] Unknown [id number]-61wg-8517-lb45-i4fdg73iq74j 09/15/2015 09/15/2015 2.16.840.1.772864.4.391.11.66919 [facility] Unknown 79r043a5-517s-6132-e332-j3qaot877dy3 09/15/2015 09/15/2015 2.16.840.1.646895.4.391.11.51329 [facility] Unknown [id number]-0k00-m0if-17j7ha0ss535 09/15/2015 09/15/2015 2.16.840.1.556161.4.391.11.09170 [facility] Unknown [id number]-5850-fd95-rd7wf564096s 09/15/2015 09/15/2015 2.16.840.1.427793.4.391.11.16994 [facility] Unknown [id number]-u48j-[id number] 09/15/2015 09/15/2015 2.16.840.1.556679.4.391.11.01766 [facility] Unknown fb8np488-p8n7-4027-05t4-led9588l115w 09/15/2015 09/15/2015 2.16.840.1.145966.4.391.11.59718 [facility] Unknown [id number]-[id number]-r714-87316d811v72 09/15/2015 09/15/2015 2.16.840.1.609239.4.391.11.28973 [facility] Unknown [id number]-3cg5-gc06-1z64211j5bgi 09/15/2015 09/15/2015 2.16.840.1.927707.4.391.11.72112 [facility] Unknown 595s6lr3-0852-3942-s6m4-14e01ra1mdt6 09/15/2015 09/15/2015 2.16.840.1.133777.4.391.11.69521 [facility] Unknown [id number]-3o01-6990-dmhe96686y15 09/15/2015 09/15/2015 2.16.840.1.911873.4.391.11.24047 [facility] Unknown [id number]3y7899ccq 09/15/2015 09/15/2015 2.16.840.1.678957.4.391.11.76460 [facility] Unknown hw4o2c91-5i90-4456-a0h9-3tl5b307t4ax 09/15/2015 09/15/2015 2.16.840.1.443386.4.391.11.02053 [facility] Unknown [id number]-gp06m1710e11 09/15/2015 09/15/2015 2.16.840.1.697475.4.391.11.29489 [facility] Unknown [id number]-ck5i-1422-27f2-5ak3275j4614 10/01/2015 10/01/2015 2.16.840.1.272060.4.391.11.88691 [facility] Unknown 3m624n3f-t89p-0jtw-4303-87045lk54x7m 10/01/2015 10/01/2015 2.16.840.1.548943.4.391.11.51837 [facility] Unknown [id number]-sa6q-95o6877a2n04 10/01/2015 10/01/2015 2.16.840.1.828161.4.391.11.39000 [facility] Unknown [id number]-ge60-6sdu-4u9q-e5752n8rf490 10/01/2015 10/01/2015 2.16.840.1.993390.4.391.11.25440 [facility] Unknown 8pvg517f-11o5-1p14-61g5-2n10950bc0pi 10/01/2015 10/01/2015 2.16.840.1.239232.4.391.11.82027 [facility] Unknown [id number]-i944-64w9-orh5-7ps29fyf924n 10/01/2015 10/01/2015 2.16.840.1.495457.4.391.11.16166 [facility] Unknown z5s6br8m-41j4-6n18-494x-j0qc13lqgx7a 10/01/2015 10/01/2015 2.16.840.1.971734.4.391.11.00838 [facility] Unknown 80r8b62m-5571-3m3y-lc0y-gz14451sgk84 10/01/2015 10/01/2015 2.16.840.1.325411.4.391.11.88355 [facility] Unknown [id number]-lhnv6t26o1g5 10/01/2015 10/01/2015 2.16.840.1.889622.4.391.11.77040 [facility] Unknown vhb973f7-1c3q-9h83-443v-2330911xnb37 10/01/2015 10/01/2015 2.16.840.1.860387.4.391.11.62675 [facility] Unknown [id number]-1ge4-00x1-o471-2kiytj4qst33 10/01/2015 10/01/2015 2.16.840.1.226115.4.391.11.79430 [facility] Unknown 568vz732-5wt1-9e67-q5k0-jd91073551u1 10/01/2015 10/01/2015 2.16.840.1.962499.4.391.11.16896 [facility] Unknown b26z2j5w-o708-316p-v746-0z5vno5l28aq 10/01/2015 10/01/2015 2.16.840.1.244975.4.391.11.85088 [facility] Unknown wr0wzhfx-3999-4g83-6q84-57qo0757z4u8 10/01/2015 10/01/2015 2.16.840.1.900236.4.391.11.70492 [facility] Unknown [id number]i29o1bx8 10/01/2015 10/01/2015 2.16.840.1.951166.4.391.11.22162 [facility] Unknown [id number]-x88b-3x00-0c98-50i3et34hn03 10/01/2015 10/01/2015 2.16.840.1.349750.4.391.11.42614 [facility] Unknown [id number]-wrxu-251i-5565-5186938u8dy5 10/01/2015 10/01/2015 2.16.840.1.177018.4.391.11.11155 [facility] Other h086i002-4zek-3290-3589-20oy3e411i51 10/01/2015 10/01/2015 2.16.840.1.640125.4.391.11.10421 [facility] Other j745f2mw-2882-9jxp-2220-w75840k0sldx 10/01/2015 10/01/2015 2.16.840.1.478246.4.391.11.83118 [facility] Other 6o16lh48-y13j-5l40-989d-rq8vd57h3t75 10/01/2015 10/01/2015 2.16.840.1.491606.4.391.11.48390 [facility] Other [id number]-d92i-3u28-5938-44826y66s703 10/01/2015 10/01/2015 2.16.840.1.269348.4.391.11.37945 [facility] Other [id number]-x35k040j5tjx 10/01/2015 10/01/2015 2.16.840.1.291442.4.391.11.79643 [facility] Other 463yiwek-027k-3704-855c-5j8vko162x6o 10/01/2015 10/01/2015 2.16.840.1.920479.4.391.11.59379 [facility] Other mcc67073-4878-727z-98b3-9q54678g61m1 10/01/2015 10/01/2015 2.16.840.1.157082.4.391.11.87433 [facility] Other 6y1b1i9o-235e-6750-i3fn-67rmm65j1gm9 10/01/2015 10/01/2015 2.16.840.1.066527.4.391.11.93076 [facility] Other 75p8do15-cn87-40n7-60ir-278fh5635163 10/01/2015 10/01/2015 2.16.840.1.832517.4.391.11.42621 [facility] Other o5h935k7-8290-030m-31ah-f289a8r1px42 10/01/2015 10/01/2015 2.16.840.1.546576.4.391.11.45531 [facility] Other 6d779ag0-6780-9796-6l88-o3237oxej7h8 10/01/2015 10/01/2015 2.16.840.1.283420.4.391.11.64713 [facility] Other 5zn5i5be-m050-8q9u-v955-18jipu370395 10/01/2015 10/01/2015 2.16.840.1.746708.4.391.11.41022 [facility] Other 8n43dg00-y8c9-252a-s8o4-0606671f06t3 10/01/2015 10/01/2015 2.16.840.1.119430.4.391.11.42539 [facility] Other w2g24w21-9tcl-625y-k648-c4302kjrs7ww 10/01/2015 10/01/2015 2.16.840.1.111772.4.391.11.92325 [facility] Other bm5bl07s-8hek-4apr-l555-06d41751ti57 10/01/2015 10/01/2015 2.16.840.1.893313.4.391.11.98405 [facility] Other x24g60dl-o4go-8txf-s302-97u9d70751es 10/01/2015 10/01/2015 2.16.840.1.041522.4.391.11.85829 [facility] Other 1a2s39a0-6o77-4r6g-6885-c14jp5h9d1aa 10/01/2015 10/01/2015 2.16.840.1.206753.4.391.11.13553 [facility] Other [id number]-u3uh-40z1-on91-9b005p566i0a 10/01/2015 10/01/2015 2.16.840.1.459946.4.391.11.43939 [facility] Other kk505p9z-y044-77m4-w04z-zc23iwc61406 10/01/2015 10/01/2015 2.16.840.1.655342.4.391.11.81848 [facility] Other 5v6n9sch-9475-5441-z991-g7e104yco954 10/01/2015 10/01/2015 2.16.840.1.230541.4.391.11.53457 [facility] Other [id number]-qs49-8802-14o2-0214dtx07617 10/01/2015 10/01/2015 2.16.840.1.056648.4.391.11.86289 [facility] Other [id number]-4g9w-6b91-3m44-83191a3e8p45 10/02/2015 10/02/2015 2.16.840.1.031008.4.391.11.68167 [facility] Other cf3er4pp-k237-1849-u607-0yl9gn61l6t4 10/02/2015 10/02/2015 2.16.840.1.195621.4.391.11.21335 [facility] Other 1q5m12yh-xk43-6i47-cn72-2215u229aqx3 10/02/2015 10/02/2015 2.16.840.1.960749.4.391.11.54327 [facility] Other 7845nnv0-154z-44d9-kr33-flun7m86l801 10/02/2015 10/02/2015 2.16.840.1.495167.4.391.11.49219 [facility] Unknown [id number]-86nq-1337-x876-662e2p0o25ar 10/06/2015 10/06/2015 2.16.840.1.180989.4.391.11.82979 [facility] Unknown yvzd12n1-4p98-07nt-u636-z8j71505283h 10/06/2015 10/06/2015 2.16.840.1.740013.4.391.11.74946 [facility] Unknown rt4i5fk1-6x08-4a24-da96-cegv73x35891 10/06/2015 10/06/2015 2.16.840.1.941286.4.391.11.82708 [facility] Unknown [id number]-649w-8nb1-tx31-688098m5qe61 10/06/2015 10/06/2015 2.16.840.1.627471.4.391.11.66726 [facility] Unknown [id number]-uw65-5629-25c0-cn9f96w4jbev 10/06/2015 10/06/2015 2.16.840.1.060140.4.391.11.68538 [facility] Unknown 4th979qy-q30t-20n0-apm5-f61663t496m4 10/06/2015 10/06/2015 2.16.840.1.342302.4.391.11.36177 [facility] Unknown [id number]-15hl-9142-9iqm-3f2u1t7270m8 10/06/2015 10/06/2015 2.16.840.1.237360.4.391.11.32939 [facility] Unknown 3q3r02c1-373p-43q3-352m-q62o558a1y56 10/06/2015 10/06/2015 2.16.840.1.100672.4.391.11.20947 [facility] Unknown d710oec5-q7z1-6ew5-a4b6-9q25a4169212 10/06/2015 10/06/2015 2.16.840.1.633946.4.391.11.73855 [facility] Unknown 95gppt7o-3q75-3841-xi4x-07809z8k218f 10/06/2015 10/06/2015 2.16.840.1.179750.4.391.11.82373 [facility] Unknown s9452eir-9bs5-764y-6838-lt95uk2pta5f 10/06/2015 10/06/2015 2.16.840.1.105502.4.391.11.31003 [facility] Unknown [id number]-t95507i3b0m4 10/06/2015 10/06/2015 2.16.840.1.786666.4.391.11.14082 [facility] Unknown [id number]-yjlo-7ia5-2wiu-n3u4i7m5yd1k 10/06/2015 10/06/2015 2.16.840.1.063747.4.391.11.79925 [facility] Unknown i411h1oy-p1o2-39k4-p59e-1uh439417698 10/06/2015 10/06/2015 2.16.840.1.082064.4.391.11.61759 [facility] Unknown [id number]-0z55-7683-el00-1314434md018 10/06/2015 10/06/2015 2.16.840.1.056505.4.391.11.23047 [facility] Unknown 1y66ez12-4a70-1a40-r9a4-xj7910miu6f0 10/06/2015 10/06/2015 2.16.840.1.115605.4.391.11.75111 [facility] Unknown [id number]-d1gw-3405-4185-461n99k30x50 10/06/2015 10/06/2015 2.16.840.1.264961.4.391.11.26064 [facility] Unknown 570p27xw-1i81-5974-jxo6-49383vu44824 10/06/2015 10/06/2015 2.16.840.1.620862.4.391.11.55449 [facility] Unknown pfd9g339-5pw0-8061-9772-f6am033530g0 10/06/2015 10/06/2015 2.16.840.1.707568.4.391.11.32780 [facility] Unknown [id number]-s6e9-84j4-3k2m-jul01nas19hv 10/06/2015 10/06/2015 2.16.840.1.647242.4.391.11.03877 [facility] Unknown [id number]-402h-79m542p5-7y15-0s45l2v003ue 10/06/2015 10/06/2015 2.16.840.1.728372.4.391.11.61667 [facility] Unknown [id number]-61r5-38w95m89d2v8 10/06/2015 10/06/2015 2.16.840.1.415869.4.391.11.80906 [facility] Unknown 5yy346d8-j7rj-523m-x22u-8501501dhf8x 10/06/2015 10/06/2015 2.16.840.1.988108.4.391.11.09245 [facility] Unknown ev7on6b5-zrue-6s2r-4a42-5j6772v9043r 10/06/2015 10/06/2015 2.16.840.1.801132.4.391.11.74128 [facility] Unknown [id number]-vzq7-9926-v4j2-a7c023031xg7 10/06/2015 10/06/2015 2.16.840.1.542188.4.391.11.76213 [facility] Unknown 39b673l9-3j7p-6kh2-mgo9-326f0454308b 10/06/2015 10/06/2015 2.16.840.1.234430.4.391.11.24158 [facility] Unknown ymmb8gg2-qy4b-1866-gjvj-0250j5uz043j 10/06/2015 10/06/2015 2.16.840.1.755458.4.391.11.89974 [facility] Unknown j51ozwb7-449d-1163-83z3-9e0q46574y45 10/06/2015 10/06/2015 2.16.840.1.106464.4.391.11.60490 [facility] Unknown u05n1452-yx20-6ze2-0qas-55pa0bn5719b 10/06/2015 10/06/2015 2.16.840.1.791919.4.391.11.28112 [facility] Unknown [id number]-f292-05v0-c8m1-5196lpd84932 10/06/2015 10/06/2015 2.16.840.1.958097.4.391.11.38294 [facility] Unknown 522t14y7-6925-4784-hd22-s29ihcpk1m6u 10/06/2015 10/06/2015 2.16.840.1.120068.4.391.11.13958 [facility] Unknown 08s2zy07-9797-1j8j-0nd4-z9y72k100e3a 10/06/2015 10/06/2015 2.16.840.1.398052.4.391.11.56033 [facility] Unknown [id number]-16xl-5j48-904r970053m6 10/06/2015 10/06/2015 2.16.840.1.099400.4.391.11.71819 [facility] Unknown oi6r45n9-25xu-345b-j550-cb236b99116v 10/06/2015 10/06/2015 2.16.840.1.130179.4.391.11.01753 [facility] Unknown [id number]-s977-69787held5fk 10/06/2015 10/06/2015 2.16.840.1.347206.4.391.11.22383 [facility] Unknown l0zpslat-5364-2748-935t-082cvb78m888 10/06/2015 10/06/2015 2.16.840.1.483296.4.391.11.69224 [facility] Unknown 60z11l0k-b14n-7v0c-dwg9-2u03up12992v 10/06/2015 10/06/2015 2.16.840.1.344118.4.391.11.73524 [facility] Unknown 156j06t1-4i2m-08d7-x65k-d186s0f0091v 10/06/2015 10/06/2015 2.16.840.1.890187.4.391.11.06788 [facility] Unknown [id number]-ow02-379f-6ywl-r2rok80020i5 10/06/2015 10/06/2015 2.16.840.1.194731.4.391.11.91235 [facility] Unknown [id number]-aq3e-d238785aq47u 10/06/2015 10/06/2015 2.16.840.1.827912.4.391.11.11040 [facility] Unknown i55d97k5-1941-39eo-78t9-106p9f2z233i 10/06/2015 10/06/2015 2.16.840.1.501418.4.391.11.93603 [facility] Unknown [id number]-cn79-575b-5z99-0t38gz98329r 10/06/2015 10/06/2015 2.16.840.1.828964.4.391.11.29380 [facility] Unknown tz29q6z6-4r6h-89k3-8r5x-3999uh55gtzv 10/08/2015 10/08/2015 2.16.840.1.340897.4.391.11.57513 [facility] Unknown [id number]-8135-3l4j-2nh8-rcw602tm3b80 10/08/2015 10/08/2015 2.16.840.1.911329.4.391.11.90948 [facility] Unknown [id number]iw819s932xu 10/08/2015 10/08/2015 2.16.840.1.838910.4.391.11.21873 [facility] Unknown [id number]-[id number] 10/08/2015 10/08/2015 2.16.840.1.585733.4.391.11.67041 [facility] Unknown [id number] 10/08/2015 10/08/2015 2.16.840.1.076933.4.391.11.82647 [facility] Unknown [id number]-[id number]-m5f2ii2q75h2 10/08/2015 10/08/2015 2.16.840.1.399372.4.391.11.16130 [facility] Unknown [id number] 10/08/2015 10/08/2015 2.16.840.1.884590.4.391.11.34714 [facility] Unknown [id number]-o2f8-912f-4y86-1n98me0e6h1w 10/08/2015 10/08/2015 2.16.840.1.178620.4.391.11.79391 [facility] Unknown [id number]-[id number] 10/08/2015 10/08/2015 2.16.840.1.856372.4.391.11.06604 [facility] Unknown [id number]-[id number] 10/08/2015 10/08/2015 2.16.840.1.245522.4.391.11.70264 [facility] Unknown [id number]-5yfk-21rn-33z6-7el28rj1c394 10/08/2015 10/08/2015 2.16.840.1.837400.4.391.11.53343 [facility] Unknown [id number]-[id number] 10/08/2015 10/08/2015 2.16.840.1.559867.4.391.11.80216 [facility] Unknown [id number] 10/08/2015 10/08/2015 2.16.840.1.532935.4.391.11.55323 [facility] Unknown [id number]-6v7y-6dug-5079-3222s0254q12 10/08/2015 10/08/2015 2.16.840.1.703855.4.391.11.19768 [facility] Unknown [id number] 10/08/2015 10/08/2015 2.16.840.1.550247.4.391.11.46484 [facility] Unknown [id number] 10/08/2015 10/08/2015 2.16.840.1.152611.4.391.11.22671 [facility] Unknown [id number]-[id number]-c912-w46tb32rqztq 10/08/2015 10/08/2015 2.16.840.1.371682.4.391.11.34793 [facility] Unknown [id number]-[id number] 10/08/2015 10/08/2015 2.16.840.1.353998.4.391.11.00735 [facility] Unknown [id number]-071v-[id number] 10/20/2015 10/20/2015 2.16.840.1.688997.4.391.11.91942 [facility] Unknown [id number]-76b2-s3p7-3538uq074b7n 10/20/2015 10/20/2015 2.16.840.1.885462.4.391.11.53168 [facility] Unknown [id number]-468j-30mg-33vx-g225lge37tr5 10/20/2015 10/20/2015 2.16.840.1.570727.4.391.11.66220 [facility] Unknown [id number]-[id number] 10/20/2015 10/20/2015 2.16.840.1.963733.4.391.11.10124 [facility] Unknown [id number]-005k4bv5r813 10/20/2015 10/20/2015 2.16.840.1.172912.4.391.11.64152 [facility] Unknown [id number] 10/20/2015 10/20/2015 2.16.840.1.063223.4.391.11.21286 [facility] Unknown [id number]-pn51-2r60-1360-34z2og16j7tr 10/20/2015 10/20/2015 2.16.840.1.818717.4.391.11.94321 [facility] Unknown [id number]-3w07-3gwn-i97g-ff6m96tch7gc 10/20/2015 10/20/2015 2.16.840.1.738076.4.391.11.23430 [facility] Unknown [id number]-0wkp-[id number]-mx38-93q8r49bo755 10/20/2015 10/20/2015 2.16.840.1.050785.4.391.11.45036 [facility] Unknown [id number] 10/20/2015 10/20/2015 2.16.840.1.713773.4.391.11.13397 [facility] Unknown [id number]-2762-h947-6e309am2p2cz 10/20/2015 10/20/2015 2.16.840.1.654656.4.391.11.28574 [facility] Unknown [id number]-0251-o950-1z7e5b9597j4 10/20/2015 10/20/2015 2.16.840.1.749877.4.391.11.49544 [facility] Unknown [id number] 10/20/2015 10/20/2015 2.16.840.1.928639.4.391.11.01172 [facility] Unknown [id number]-n219-5255b7c27o5f 10/20/2015 10/20/2015 2.16.840.1.368019.4.391.11.52189 [facility] Unknown [id number] 10/20/2015 10/20/2015 2.16.840.1.166625.4.391.11.40054 [facility] Unknown [id number]-5r2p-tvq1-4ih63u3a9782 10/20/2015 10/20/2015 2.16.840.1.988458.4.391.11.27794 [facility] Unknown [id number]-g970-4g55fdf23qa4 10/20/2015 10/20/2015 2.16.840.1.105416.4.391.11.76421 [facility] Unknown [id number]-v014-ao2wvi28crbm 10/20/2015 10/20/2015 2.16.840.1.828247.4.391.11.80088 [facility] Unknown [id number]-w49z-25wh-[id number] 10/20/2015 10/20/2015 2.16.840.1.511684.4.391.11.97492 [facility] Unknown [id number]-45k5-5u1a-nc66-1580gg8n96fv 10/20/2015 10/20/2015 2.16.840.1.463060.4.391.11.07073 [facility] Unknown [id number]-f2cn-33f0-01nr-w29c6u7sl331 10/20/2015 10/20/2015 2.16.840.1.793135.4.391.11.85888 [facility] Unknown [id number]-09iq-684l-[id number] 10/20/2015 10/20/2015 2.16.840.1.497900.4.391.11.03409 [facility] Unknown [id number]-[id number] 10/20/2015 10/20/2015 2.16.840.1.107654.4.391.11.20881 [facility] Unknown [id number]-[id number] 10/20/2015 10/20/2015 2.16.840.1.046596.4.391.11.06395 [facility] Unknown [id number] 10/20/2015 10/20/2015 2.16.840.1.605922.4.391.11.06814 [facility] Unknown [id number]32m7n26y877 10/20/2015 10/20/2015 2.16.840.1.075900.4.391.11.55216 [facility] Unknown [id number]-[id number]-[id number] 10/20/2015 10/20/2015 2.16.840.1.110456.4.391.11.31951 [facility] Unknown [id number] 10/20/2015 10/20/2015 2.16.840.1.255749.4.391.11.76451 [facility] Unknown [id number]-6ile-[id number] 10/20/2015 10/20/2015 2.16.840.1.676873.4.391.11.01291 [facility] Unknown [id number]-zni3-5j7b1ng73q48 10/20/2015 10/20/2015 2.16.840.1.135946.4.391.11.52065 [facility] Unknown [id number]-m68i-spae9562y6bf 10/20/2015 10/20/2015 2.16.840.1.094441.4.391.11.02657 [facility] Unknown [id number]-[id number] 10/20/2015 10/20/2015 2.16.840.1.214872.4.391.11.62873 [facility] Unknown [id number] 12/02/2015 12/02/2015 2.16.840.1.314733.4.391.11.15962 [facility] Unknown [id number]-[id number] 12/02/2015 12/02/2015 2.16.840.1.071431.4.391.11.16827 [facility] Unknown [id number]-[id number] 12/02/2015 12/02/2015 2.16.840.1.173709.4.391.11.51520 [facility] Unknown [id number]-t5kb224js0zm 12/02/2015 12/02/2015 2.16.840.1.370583.4.391.11.36780 [facility] Unknown [id number] 12/02/2015 12/02/2015 2.16.840.1.233962.4.391.11.92339 [facility] Unknown [id number]-[id number] 12/02/2015 12/02/2015 2.16.840.1.381168.4.391.11.21719 [facility] Unknown [id number] 12/02/2015 12/02/2015 2.16.840.1.311506.4.391.11.26645 [facility] Unknown [id number] 12/02/2015 12/02/2015 2.16.840.1.150629.4.391.11.61764 [facility] Unknown [id number] 12/02/2015 12/02/2015 2.16.840.1.533250.4.391.11.22607 [facility] Unknown [id number]-ib75-02rp94c8wn3s 12/02/2015 12/02/2015 2.16.840.1.274400.4.391.11.46978 [facility] Unknown [id number]-ubsc-[id number] 12/02/2015 12/02/2015 2.16.840.1.783093.4.391.11.01779 [facility] Unknown [id number]-c0lr-657w2u25lwr2 12/02/2015 12/02/2015 2.16.840.1.183502.4.391.11.04262 [facility] Unknown [id number] 12/02/2015 12/02/2015 2.16.840.1.101857.4.391.11.64653 [facility] Unknown [id number]-a29r-2s44-q518-os3c092glk1g 12/02/2015 12/02/2015 2.16.840.1.287706.4.391.11.46435 [facility] Unknown [id number]-b22r-[id number] 12/05/2015 12/05/2015 2.16.840.1.882674.4.391.11.39390 [facility] Unknown [id number]-[id number] 12/05/2015 12/05/2015 2.16.840.1.282333.4.391.11.21165 [facility] Unknown [id number]-[id number] 12/05/2015 12/05/2015 2.16.840.1.359975.4.391.11.44176 [facility] Unknown [id number]-87a6-03lnc5606kj7 12/05/2015 12/05/2015 2.16.840.1.183364.4.391.11.23928 [facility] Unknown [id number]-[id number] 12/05/2015 12/05/2015 2.16.840.1.165132.4.391.11.99632 [facility] Unknown [id number]-1238-x3lb02427q63 12/05/2015 12/05/2015 2.16.840.1.917781.4.391.11.10849 [facility] Unknown [id number]-rn0i-u1z268z7c432 12/05/2015 12/05/2015 2.16.840.1.218420.4.391.11.75360 [facility] Unknown [id number] 12/05/2015 12/05/2015 2.16.840.1.535090.4.391.11.34838 [facility] Unknown yw6lnt7e-1348-165i-it67-eo2qiv75e3fi 12/05/2015 12/05/2015 2.16.840.1.329338.4.391.11.06375 [facility] Unknown [id number]-my8k53ut5041 12/05/2015 12/05/2015 2.16.840.1.261943.4.391.11.68806 [facility] Unknown [id number]-m408-63g6-r603-k167653z135x 12/05/2015 12/05/2015 2.16.840.1.656413.4.391.11.72181 [facility] Unknown [id number]-dbi6-0l6b-w88i-r8h71gd2w4r9 12/05/2015 12/05/2015 2.16.840.1.800656.4.391.11.51328 [facility] Unknown [id number]-855c-al5z-24p77211u091 12/05/2015 12/05/2015 2.16.840.1.369659.4.391.11.40914 [facility] Refill [id number]-55jt-00d5-o793-03p7524d9458 12/22/2015 12/22/2015 2.16.840.1.798109.4.391.11.60561 [facility] Refill [id number]-a4r6-vac2pks3fi76 12/22/2015 12/22/2015 2.16.840.1.019264.4.391.11.82685 [facility] Refill [id number]-[id number] 12/22/2015 12/22/2015 2.16.840.1.466688.4.391.11.77812 [facility] Refill [id number]-0vp2-002zm4t7sv82 12/22/2015 12/22/2015 2.16.840.1.505174.4.391.11.52412 [facility] Refill 4t40h3jx-x965-13wr-07o5-670bxc0es604 12/22/2015 12/22/2015 2.16.840.1.665320.4.391.11.52847 [facility] Refill 461fk86m-yzjm-4403-2681-5r5v7m29z55c 12/22/2015 12/22/2015 2.16.840.1.892378.4.391.11.09489 [facility] Refill 24i0f0a8-i14j-5y68-j9s6-431yzg392t5r 12/22/2015 12/22/2015 2.16.840.1.404761.4.391.11.52477 [facility] Refill [id number]-qc11-279k16m0d50u 12/22/2015 12/22/2015 2.16.840.1.903690.4.391.11.72154 [facility] Refill 173q093o-nhum-0e6z-c4br-15612r2bq04b 12/22/2015 12/22/2015 2.16.840.1.477831.4.391.11.27000 [facility] Refill [id number]-tl4d-17md-m774-5oot3b358t45 12/22/2015 12/22/2015 2.16.840.1.708574.4.391.11.40982 [facility] Refill [id number] 12/22/2015 12/22/2015 2.16.840.1.589935.4.391.11.20028 [facility] Refill 537hsp47-17r6-28k9-v8n0-14m4y9o258y3 12/22/2015 12/22/2015 2.16.840.1.194192.4.391.11.28785 [facility] Unknown [id number]-6fgw-b65j2334cpi5 12/23/2015 12/23/2015 2.16.840.1.566761.4.391.11.64773 [facility] Unknown [id number]-c9uh-[id number] 12/23/2015 12/23/2015 2.16.840.1.883354.4.391.11.78784 [facility] Unknown [id number]-31v5-02vs-hh79-kf34ht8722n4 12/23/2015 12/23/2015 2.16.840.1.978246.4.391.11.13927 [facility] Unknown [id number]-4060-4270to28109o 12/23/2015 12/23/2015 2.16.840.1.390523.4.391.11.83880 [facility] Unknown [id number]-zbph-6v9t0aex2w24 12/23/2015 12/23/2015 2.16.840.1.180314.4.391.11.33902 [facility] Unknown [id number] 12/23/2015 12/23/2015 2.16.840.1.747482.4.391.11.31253 [facility] Unknown [id number]-y601-09jz-dd32-4e94ez440b9i 12/23/2015 12/23/2015 2.16.840.1.012274.4.391.11.48031 [facility] Unknown [id number]-7dat-[id number] 12/23/2015 12/23/2015 2.16.840.1.695598.4.391.11.95165 [facility] Unknown [id number]-xgtu-9038073j4wf2 12/23/2015 12/23/2015 2.16.840.1.868990.4.391.11.59570 [facility] Unknown [id number]-w2h7-2cv5-if43-5r28cs20ib11 12/23/2015 12/23/2015 2.16.840.1.940826.4.391.11.01232 [facility] Unknown [id number]-n1ia-4q8l-u6g2-57818k29503h 12/23/2015 12/23/2015 2.16.840.1.206079.4.391.11.25379 [facility] Unknown [id number]-d486-8088-2u12-62d047386ub3 12/26/2015 12/26/2015 2.16.840.1.384644.4.391.11.49027 [facility] Unknown [id number]-oou0-65r1-w079-[id number] 12/26/2015 12/26/2015 2.16.840.1.360143.4.391.11.46365 [facility] Unknown [id number]-9l02-95z9-l02l-ntdik757np98 12/26/2015 12/26/2015 2.16.840.1.552484.4.391.11.47626 [facility] Unknown [id number]-p47095t85e22 12/26/2015 12/26/2015 2.16.840.1.594313.4.391.11.16460 [facility] Unknown [id number]-6q61-11q7-4878315p1t83 12/26/2015 12/26/2015 2.16.840.1.191095.4.391.11.23205 [facility] Unknown [id number]-370u-74f2-j24m-3n186j1u5t14 12/26/2015 12/26/2015 2.16.840.1.074192.4.391.11.85057 [facility] Unknown [id number] 12/26/2015 12/26/2015 2.16.840.1.383389.4.391.11.58704 [facility] Unknown [id number]-eg7s-096n-85x6-q04944q62906 12/26/2015 12/26/2015 2.16.840.1.593728.4.391.11.84717 [facility] Unknown [id number]-8lty-6003-bb7q-7x0wjlkz44z5 12/26/2015 12/26/2015 2.16.840.1.905988.4.391.11.80337 [facility] Unknown [id number]-00eu-ex4q-3366444d149t 12/26/2015 12/26/2015 2.16.840.1.927367.4.391.11.14967 [facility] Unknown [id number]-[id number] 12/29/2015 12/29/2015 2.16.840.1.961034.4.391.11. [facility] Unknown [id number]-w058w700398i 12/29/2015 12/29/2015 2.16.840.1.834080.4.391.11.90163 [facility] Unknown [id number] 12/29/2015 12/29/2015 2.16.840.1.704387.4.391.11.67280 [facility] Unknown [id number]-[id number]-z04a-21843hs1f60v 12/29/2015 12/29/2015 2.16.840.1.436142.4.391.11.73217 [facility] Unknown [id number]g9x 12/29/2015 12/29/2015 2.16.840.1.659981.4.391.11.42356 [facility] Unknown [id number]-ksl8-m84n5811bccd 12/29/2015 12/29/2015 2.16.840.1.371792.4.391.11.97688 [facility] Unknown [id number]-mg30-90f89lg971o9 12/29/2015 12/29/2015 2.16.840.1.181581.4.391.11.54368 [facility] Unknown [id number]-c636-8667b33vdw37 12/29/2015 12/29/2015 2.16.840.1.018873.4.391.11.94943 [facility] Unknown [id number]-[id number]-f62i65qx9401 12/29/2015 12/29/2015 2.16.840.1.584496.4.391.11.12631 [facility] Unknown [id number]-k9k3-6c33-4199-68zu67f04nbd 12/31/2015 12/31/2015 2.16.840.1.263628.4.391.11.01621 [facility] Unknown [id number]-42qr-75ty-96x9-n7zdi970400g 12/31/2015 12/31/2015 2.16.840.1.542164.4.391.11.27795 [facility] Unknown [id number]-d331-61ui-5zql-261728x2s63a 12/31/2015 12/31/2015 2.16.840.1.328933.4.391.11.22398 [facility] Unknown [id number]-5il9-77l7-222043v5u023 12/31/2015 12/31/2015 2.16.840.1.551666.4.391.11.26264 [facility] Unknown [id number]-x92e-py71j41958a0 12/31/2015 12/31/2015 2.16.840.1.082134.4.391.11.90399 [facility] Unknown [id number]-u1kz-321p810790nt 12/31/2015 12/31/2015 2.16.840.1.113499.4.391.11.52162 [facility] Unknown [id number]-n36h-5nwh-s050-xe247c9p741a 12/31/2015 12/31/2015 2.16.840.1.688015.4.391.11.72384 [facility] Unknown [id number]-2z75-b0d2-5454030vf037 12/31/2015 12/31/2015 2.16.840.1.273471.4.391.11.91744 [facility] Unknown [id number]-v9i6-41dk2107c987 01/30/2016 01/30/2016 2.16.840.1.046886.4.391.11.75728 [facility] Unknown [id number]-4s7m-79a8-k430-40y6ty3l2dkt 01/30/2016 01/30/2016 2.16.840.1.662167.4.391.11.50663 [facility] Unknown [id number]-[id number]-[id number] 01/30/2016 01/30/2016 2.16.840.1.012077.4.391.11.02667 [facility] Unknown [id number]-49i9-0g33-s214-8yw75ve6i5da 01/30/2016 01/30/2016 2.16.840.1.828992.4.391.11.78386 [facility] Unknown [id number]-17a8-875p-5x03d0374h3m 01/30/2016 01/30/2016 2.16.840.1.140843.4.391.11.84979 [facility] Unknown [id number]-85s0-un5o-2349j041cd28 01/30/2016 01/30/2016 2.16.840.1.262918.4.391.11.65392 [facility] Unknown [id number]-15d2-674t-3615-ps1g62l7546n 01/30/2016 01/30/2016 2.16.840.1.407631.4.391.11.74319 [facility] Unknown [id number]-h756-92z2-2g25-9b6w6178z7q4 01/30/2016 01/30/2016 2.16.840.1.169932.4.391.11.78045 [facility] Unknown [id number]fe0 01/30/2016 01/30/2016 2.16.840.1.114716.4.391.11.25060 [facility] Unknown [id number] 01/30/2016 01/30/2016 2.16.840.1.064546.4.391.11.34452 [facility] Unknown [id number] 01/30/2016 01/30/2016 2.16.840.1.610427.4.391.11.14213 [facility] Unknown g2s2g97p-496b-60hk-93r9-t2otres786mz 01/30/2016 01/30/2016 2.16.840.1.285516.4.391.11.89233 [facility] Unknown [id number]-7ikz-47ou-y4fv-vxo2dsl42xgv 01/30/2016 01/30/2016 2.16.840.1.270214.4.391.11.16629 [facility] Refill [id number]-w05p-5wl5-gt78-23xm4012l4g2 02/20/2016 02/20/2016 2.16.840.1.708695.4.391.11.74361 [facility] Refill [id number]-l5g4-42q4-1t51-56f9758o3v5k 02/20/2016 02/20/2016 2.16.840.1.704138.4.391.11.91756 [facility] Refill [id number]-ivhw-20bn-7066-41j20a7ou862 02/20/2016 02/20/2016 2.16.840.1.609263.4.391.11.94818 [facility] Refill [id number]-72n6-y91q-is4x4w31em7g 02/20/2016 02/20/2016 2.16.840.1.006388.4.391.11.08172 [facility] Refill 29ffz5cs-ext6-3l80-c8p1-pt29lh0k7pt6 02/20/2016 02/20/2016 2.16.840.1.710545.4.391.11.42966 [facility] REFILLS 97yvxg2h-jmk6-69t9-4y44-r767y9c6r84t 02/24/2016 02/24/2016 2.16.840.1.982759.4.391.11.10856 [facility] REFILLS 5i8kexug-318b-2b8t-zvj0-402e8poy8y76 02/24/2016 02/24/2016 2.16.840.1.082927.4.391.11.43987 [facility] REFILLS c63qcj4v-63r9-6x8h-a9x3-27e6182h7xrd 02/24/2016 02/24/2016 2.16.840.1.965195.4.391.11.89457 [facility] Unknown [id number]-286l-6to1-638l23d546au 03/08/2016 03/08/2016 2.16.840.1.219986.4.391.11.29956 [facility] Unknown [id number]-6234-g92b-u1x4bzo46lhe 03/08/2016 03/08/2016 2.16.840.1.598327.4.391.11.93579 [facility] Unknown [id number]-652u-0f4t244m1358 03/08/2016 03/08/2016 2.16.840.1.324990.4.391.11.42164 [facility] Unknown [id number]-9ve8-x63yux2604iu 03/08/2016 03/08/2016 2.16.840.1.388177.4.391.11.77064 [facility] Unknown [id number]-7488-tmew-1g09a932i4mc 03/16/2016 03/16/2016 2.16.840.1.432655.4.391.11.85030 [facility] Unknown [id number] 03/16/2016 03/16/2016 2.16.840.1.682867.4.391.11.75277 [facility] Unknown [id number]-1j17-0551-gy3j-u32q2v4dk36d 04/12/2016 04/12/2016 2.16.840.1.850192.4.391.11.07701 Procedures Procedure Code Date Perfomer Comments Source Cholecystectomy [id number] [facility] Hernia repair [id number] [facility] Hysterectomy [id number] [facility] Oophorectomy [id number] [facility] Tonsillectomy [id number] [facility] Cholecystectomy [id number] [facility] Hernia repair [id number] [facility] Hysterectomy [id number] [facility] Oophorectomy [id number] [facility] Tonsillectomy [id number] [facility]
--- OUTSIDE RECORDS SUMMARY | 2018-06-22 13:31 | XMS REPORT | Summary of Care ---
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 Name Role Phone Darien Molina PCP Encounter HQ Irina_bayron(FIN) [id number] Date(s): 12/13/13 - 12/14/[address] Discharge Diagnosis: Action tremor Discharge Diagnosis: Hallucinations, visual Discharge Disposition: Home Physician Attending: Estelle Cullen MD Reason for Visit OTHER Vital Signs 1 2 3 Most recent to oldest [Reference Range]: 162.56 cm (12/13/13 10:41 PM) Height 97.6 DegF (12/14/13 5:03 AM) 97.5 DegF (12/14/13 2:53 AM) 98.1 DegF (12/13/13 10:41 PM) Temperature Oral [96.4-99.1 DegF] 114 mmHg (12/14/13 5:03 AM) 99 mmHg (12/14/13 2:53 AM) 104 mmHg (12/14/13 12:08 AM) Systolic Blood Pressure [90-140 mmHg] 72 mmHg (12/14/13 5:03 AM) 58 mmHg *LOW* (12/14/13 2:53 AM) 55 mmHg *LOW* (12/14/13 12:08 AM) Diastolic Blood Pressure [60-90 mmHg] 18 BRMIN (12/14/13 5:03 AM) 18 BRMIN (12/14/13 2:53 AM) 18 BRMIN (12/14/13 12:08 AM) Respiratory Rate [14-20 BRMIN] 80 bpm (12/14/13 5:03 AM) 70 bpm (12/14/13 2:53 AM) 86 bpm (12/14/13 12:08 AM) Peripheral Pulse Rate [60-100 bpm] 102.273 kg (12/13/13 10:41 PM) Weight 38.7 m2 (12/13/13 10:41 PM) Body Mass Index Problem List Condition Effective Dates Status Health Status Informant Epilepsy(Confirmed) Resolved GERD Resolved (gastroesophageal reflux disease)(Confirmed) HTN Resolved (hypertension)(Confi rmed) RA (rheumatoid Resolved arthritis)(Confirmed ) Allergies, Adverse Reactions, Alerts Substance Reaction Severity Status KlonoPIN Active LaMICtal Active Toradol Active Medications No data available for this section Results ELECTROLYTES Most recent to 1 oldest [Reference Range]: Sodium Lvl [135-145 138 mEq/L mEq/L] (12/14/13 12:06 AM) Potassium Lvl 3.6 mEq/L [3.5-5.1 mEq/L] (12/14/13 12:06 AM) Chloride Lvl [95-109 101 mEq/L mEq/L] (12/14/13 12:06 AM) CO2 [24-32 mEq/L] 31 mEq/L (12/14/13 12:06 AM) AGAP [10.0-20.0 9.6 mEq/L mEq/L] *LOW* (12/14/13 12:06 AM) CHEM PANEL Most recent to 1 oldest [Reference Range]: Creatinine Lvl 0.9 mg/dL [0.5-1.4 mg/dL] (12/14/13 12:06 AM) eGFR 83 mL/min/1.73m2 1 *NA* (12/14/13 12:06 AM) BUN [7-22 mg/dL] 22 mg/dL (12/14/13 12:06 AM) Glucose Lvl [70-99 111 mg/dL 2 mg/dL] *HI* (12/14/13 12:06 AM) Calcium Lvl 9.8 mg/dL [8.5-10.5 mg/dL] (12/14/13 12:06 AM) Phosphorus [2.5-4.5 5.7 mg/dL mg/dL] *HI* (12/14/13 12:06 AM) Magnesium Lvl 1.8 mg/dL [1.8-2.4 mg/dL] (12/14/13 12:06 AM) 1Result Comment: The eGFR is calculated using [...] from the National Kidney Disease Education Program ( NKDEP) which additionally recommends that when the eGFR is used in patients with extremes of body mass index for purposes of drug dosing, the eGFR should be mul tiplied by the estimated BMI. 2Interpretive Data: Adult reference range values reflect the clinical guidelines of the [place] [employer]. URINE CHEM Most recent to 1 oldest [Reference Range]: U Preg [Negative] Negative (12/14/13 12:10 AM) URINE AND STOOL Most recent to 1 oldest [Reference Range]: UA Turbidity [Clear] Clear (12/14/13 12:10 AM) UA Color [Yellow] Yellow *NA* (12/14/13 12:10 AM) UA pH [5.0-8.0] 6.0 (12/14/13 12:10 AM) UA Spec Grav >=1.030 [<=1.030] *ABN* (12/14/13:10 AM) UA Glucose Negative [Negative] (12/14/13 12:10 AM) UA Blood [Negative] Negative (12/14/13 12:10 AM) UA Ketones Negative [Negative] *NA* (12/14/13:10 AM) UA Protein Negative [Negative] (12/14/13 12:10 AM) UA Urobilinogen 0.2 EU/dL [0.1-1.0 EU/dL] (12/14/13 12:10 AM) UA Bili [Negative] Negative *NA* (12/14/13:10 AM) UA Leuk Est Negative [Negative] (12/14/13 12:10 AM) UA Nitrite Negative [Negative] (12/14/13 12:10 AM) UA WBC [None Seen 3-5 /HPF /HPF] (12/14/13 12:10 AM) UA RBC [0-2] None Seen (12/14/13 12:10 AM) UA Bacteria [None Few /HPF Seen /HPF] (12/14/13 12:10 AM) UA Sq Epi [Few /LPF] Few /LPF (12/14/13 12:10 AM) UA Amorph [place]ana [None Occasional /HPF Seen /HPF] *ABN* (12/14/13 12:10 AM) Micro? Performed (12/14/13 12:10 AM) IMMUNOLOGY Most recent to 1 oldest [Reference Range]: CDC HIV 4th GEN Negative [Negative] (12/14/13 12:06 AM) HEMATOLOGY Most recent to 1 oldest [Reference Range]: WBC [3.7-10.4 K/CMM] 11.5 K/CMM *HI* (12/14/13: AM) RBC [4.20-5.40 5.19 M/CMM M/CMM] (12/14/13 12:06 AM) Hgb [12.0-16.0 g/dL] 14.1 g/dL (12/14/13:06 AM) Hct [36.0-48.0 %] 41.6 % (12/14/13 12:06 AM) MCV [81.0-99.0 fL] 80.1 fL *LOW* (12/14/13: AM) MCH [27.0-31.0 pg] 27.1 pg (12/14/13:06 AM) MCHC [32.0-36.0 33.9 g/dL g/dL] (12/14/13 12:06 AM) RDW [11.5-14.5 %] 17.1 % *HI* (12/14/13: AM) Platelet [133-450 251 K/CMM K/CMM] (12/14/13 12:06 AM) MPV [7.4-10.4 fL] 9.3 fL (12/14/13 12:06 AM) Segs [45.0-75.0 %] 51.5 % (12/14/13 12:06 AM) Lymphocytes 35.1 % [20.0-40.0 %] (12/14/13 12:06 AM) Monocytes [2.0-12.0 5.8 % %] (12/14/13 12:06 AM) Eosinophils [0.0-4.0 7.3 % %] *HI* (12/14/13 12:06 AM) Basophils [0.0-1.0 0.3 % %] (12/14/13 12:06 AM) Segs-Bands # 5.9 K/CMM [1.5-8.1 K/CMM] (12/14/13 12:06 AM) Lymphocytes # 4.0 K/CMM [1.0-5.5 K/CMM] (12/14/13 12:06 AM) Monocytes # [0.0-0.8 0.7 K/CMM K/CMM] (12/14/13 12:06 AM) Eosinophils # 0.8 K/CMM [0.0-0.5 K/CMM] *HI* (12/14/13 12:06 AM) Basophils # [0.0-0.2 0.0 K/CMM K/CMM] (12/14/13 12:06 AM) PT [12.0-14.7 13.1 seconds seconds] (12/14/13 12:06 AM) INR [0.85-1.17] 1.00 3 (12/14/13 12:06 AM) PTT [22.9-35.8 31.5 seconds 4 seconds] (12/14/13 12:06 AM) 3Interpretive Data: RECOMMENDED RANGES FOR PROTIME INR: 2.0-3.0 for most medical and surgical thromboembolic states. 2.5-3.5 for artificial heart valves and recurrent embolism. INR SHOULD BE USED ONLY FOR PATIENTS ON STABLE ANTICOAGULANT THERAPY. 4Interpretive Data: Heparin Therapeutic Range: 57 - 92 Seconds Medications Administered During Your Visit No data available for this section Immunizations No data available for this section Procedures Procedure Type Body Site Date of Procedure Related Diagnosis Cholecystectomy Hernia repair Hysterectomy Oophorectomy Tonsillectomy Social History Social History Type Response
--- OUTSIDE RECORDS SUMMARY | 2018-06-22 13:31 | XMS REPORT ---
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 Role Phone Fernanda Gloria CP Unavailable Encounters Encounter Location Date Unknown [facility] August 11, 2015 Unknown [facility] August 22, 2015 Problems Problem Type Condition ICD-9 Code Onset Dates Condition Status Problem Migraine G43.909 Active Problem RA (rheumatoid arthritis) M06.9 Active Problem GERD (gastroesophageal reflux disease) K21.9 Active Assessment Insomnia G47.00 Active Problem Insomnia G47.00 Active Problem Cardiac arrhythmia I49.9 Active Problem Seizure R56.9 Active Problem Anxiety F41.9 Active Problem Opiate addiction F11.20 Active Problem HTN (hypertension) I10 Active Problem Seizures R56.9 Active Medications Medication Code System Code Instructions Start Date End Date Status Dosage Ambien MEDISPAN [address]-81 10 mg Orally Once at bedtime Active 1 tablet Venlafaxine HCl ER MEDISPAN [address]-06 225 MG Orally Once a day Active 1 tablet with food Ativan MEDISPAN [address]-28 1 MG Orally three times a day (tid) August 22, 2015 Active 1 tablet as needed Social History Social History Element Qualifiers Date Reported Tobacco Use: . Are you a: current smoker, How many years have you smoked? 20, Pack Years 12 July 29, 2015 Use of recreational / street drugs? . Answer: No July 29, 2015 Marital Status: . seperated. July 29, 2015 Caffeine intake? . Status: Yes, What type: Coffee, Tea, Soft Drinks July 29, 2015 Do you exercise? . Answer: No July 29, 2015 Do you drink alcohol? . Status: No July 29, 2015 Travel outside [place]: . 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
--- OUTSIDE RECORDS SUMMARY | 2018-06-22 13:31 | XMS REPORT | Summary of Care ---
Author Author [facility] Organization [facility] Address Unknown Phone Unavailable Care Team Providers Care Finishing Inspector Name Role Phone Darien Molina PCP Encounter [facility] [email or web address](FIN) [phone] Date(s): 11/12/14 - 11/13/14 [facility] [address] [facility] provided by [facility] [place] [address]- Discharge Diagnosis: Migraine Discharge Disposition: Home Attending Physician: Jane Nixon MD Vital Signs 1 2 3 Most recent to oldest [Reference Range]: 170.18 cm (11/12/14 11:52 AM) Height 1 2 3 Most recent to oldest [Reference Range]: 97.9 DegF (11/13/14 12:23 AM) 97.4 DegF (11/12/14 6:15 PM) 98.9 DegF (11/12/14 11:52 AM) Temperature Oral [96.4-99.1 DegF] 1 2 3 Most recent to oldest [Reference Range]: 126/79 mmHg (11/13/14 12:23 AM) 159/94 mmHg *HI* (11/12/14 6:15 PM) 168/118 mmHg *HI* (11/12/14 4:58 PM) Blood Pressure [90-140/60-90 mmHg] 1 2 3 Most recent to oldest [Reference Range]: 20 BRMIN (11/13/14 12:23 AM) 18 BRMIN (11/12/14 6:15 PM) 18 BRMIN (11/12/14 4:58 PM) Respiratory Rate [14-20 BRMIN] 1 2 3 Most recent to oldest [Reference Range]: 77 bpm (11/13/14 12:23 AM) 64 bpm (11/12/14 6:15 PM) 64 bpm (11/12/14 4:58 PM) Peripheral Pulse Rate [60-100 bpm] 1 2 3 Most recent to oldest [Reference Range]: 95.455 kg (11/12/14 11:52 AM) Weight 1 2 3 Most recent to oldest [Reference Range]: 32.96 m2 (11/12/14 11:52 AM) Body Mass Index Problem List Condition Effective Dates Status Health Status Informant Epilepsy(Confirmed) Resolved GERD Resolved (gastroesophageal reflux disease)(Confirmed) HTN Resolved (hypertension)(Confi rmed) RA (rheumatoid Resolved arthritis)(Confirmed ) Allergies, Adverse Reactions, Alerts Substance Reaction Severity Status KlonoPIN Active LaMICtal Active Medications Benadryl 25 mg, 0.5 mL, Route: IVP, Drug form: INJ, ONCE, Dosing Weight 95.455, kg, Prior ity: STAT, Start date: 11/12/14 12:13:00, Stop date: 11/12/14 12:13:00 Notes: (Same as: Benadryl) Start Date: 11/12/14 Stop Date: 11/12/14 Status: Completed cefepime 1 gm, Route: IVPB, ONCE, Dosing Weight 95.455, kg, Priority: STAT, Start date: 0 11/12/14 17:09:00, Stop date: 11/12/14 17:09:00 Start Date: 11/12/14 Stop Date: 11/12/14 Status: Discontinued Compazine 10 mg, 2 mL, Route: IV, Drug form: INJ, ONCE, Dosing Weight 95.455, kg, Start da te: 11/12/14 15:06:00, Stop date: 11/12/14 15:06:00 Notes: (Same as: Compazine) Start Date: 11/12/14 Stop Date: 11/12/14 Status: Completed dexamethasone 10 mg, 1 mL, Route: IVP, Drug form: INJ, ONCE, Dosing Weight 95.455, kg, Priorit y: STAT, Start date: 11/12/14 15:08:00, Stop date: 11/12/14 15:08:00 Notes: MEDICATION WASTE Product Size: 10 mgProduct Wasted: 0 mg Start Date: 11/12/14 Stop Date: 11/12/14 Status: Completed diclofenac potassium 50 mg oral tablet 50 mg=1 tab, PO, Q2H, PRN severe headache, max dose 2 doses per day, # 12 tab, 0 Refill(s) Special Instructions: PRN severe headache, max dose 2 doses per day Start Date: 11/13/14 Stop Date: 11/13/14 Status: Completed ketOROLAC 30 mg, 1 mL, Route: IVP, Drug form: INJ, ONCE, Dosing Weight 95.455, kg, Priorit y: STAT, Start date: 11/12/14 12:14:00, Stop date: 11/12/14 12:14:00 Notes: (Same as:Toradol) IV bolus must be given >15 seconds. Give IM administration slowly and deeply into the muscle.Not for use > 4 days MEDICATION WASTE Product Size: 30 mgProduct Wasted: ___ mg Start Date: 11/12/14 Stop Date: 11/12/14 Status: Completed magnesium sulfate 2 gm in Water 50 ml 2 gm, 50 mL, Route: IV, Drug form: INJ, ONCE, Dosing Weight 95.455, kg, Start da te: 11/12/14 18:05:00, Stop date: 11/12/14 18:05:00 Start Date: 11/12/14 Stop Date: 11/12/14 Status: Completed melatonin 3 mg oral tablet 3 mg=1 tab, PO, Bedtime, PRN for insomnia, X 60 day, # 60 tab, 0 Refill(s) Start Date: 11/13/14 Stop Date: 01/12/15 Status: Ordered NS (Bolus) IV 500 mL, 500 ml/hr, Infuse Over: 1 hr, Route: IV, 500, Drug form: INJ, ONCE, Prio rity: STAT, Dosing Weight 95.455 kg, Start date: 11/12/14 18:05:00, Duration: 1 doses or times, Stop date: 11/12/14 18:05:00 Start Date: 11/12/14 Stop Date: 11/12/14 Status: Completed NS (Bolus) IV 1,000 mL, 1,000 ml/hr, Infuse Over: 1 hr, Route: IV, 1,000, Drug form: INJ, ONCE , Priority: STAT, Dosing Weight 95.455 kg, Start date: 11/12/14 13:10:00, Durati on: 1 doses or times, Stop date: 11/12/14 13:10:00 Start Date: 11/12/14 Stop Date: 11/12/14 Status: Completed Phenergan 25 mg, 1 mL, Route: IVPB, Drug form: INJ, ONCE, Dosing Weight 95.455, kg, Priori ty: STAT, Start date: 11/12/14 13:49:00, Stop date: 11/12/14 13:49:00 Notes: Do not give IV push. (Same as: Phenergan) Start Date: 11/12/14 Stop Date: 11/12/14 Status: Completed predniSONE 20 mg oral tablet 40 mg=2 tab, PO, Daily, X 3 day, # 6 tab, 0 Refill(s) Start Date: 11/13/14 Stop Date: 11/16/14 Status: Ordered Reglan 10 mg, 2 mL, Route: IVP, Drug form: INJ, ONCE, Dosing Weight 95.455, kg, Priorit y: STAT, Start date: 11/12/14 12:13:00, Stop date: 11/12/14 12:13:00 Notes: (Same as: Reglan) Start Date: 11/12/14 Stop Date: 11/12/14 Status: Completed valproic acid 100 mg/mL intravenous solution + Sodium Chloride 0.9% IV 50 mL 500 mg, 5 mL, Route: IV, Drug form: INJ, ONCE, Dosing Weight 95.455, kg, Start d ate: 11/12/14 18:04:00, Stop date: 11/12/14 18:04:00 Notes: Dilute in at least 50ml D5W or NS. Infusion rate=20 mg/min(Same As: Depac on) Start Date: 11/12/14 Stop Date: 11/12/14 Status: Completed valproic acid 250 mg oral capsule(Depekene) 500 mg=2 cap, PO, BID, # 30 cap, 0 Refill(s) Start Date: 11/13/14 Status: Ordered vancomycin 1.5 gm, Route: IVPB, Drug form: INJ, ONCE, Dosing Weight 95.455, kg, Priority: S TAT, Start date: 11/12/14 17:09:00, Stop date: 11/12/14 17:09:00 Start Date: 11/12/14 Stop Date: 11/12/14 Status: Discontinued Vistaril 25 mg, 1 mL, Route: IM, Drug form: INJ, ONCE, Dosing Weight 95.455, kg, Priority : STAT, Start date: 11/12/14 18:04:00, Stop date: 11/12/14 18:04:00 Start Date: 11/12/14 Stop Date: 11/12/14 Status: Completed Results No data available for this section Immunizations No data available for this section Procedures Procedure Date Related Diagnosis Body Site Cholecystectomy Hernia repair Hysterectomy Oophorectomy Tonsillectomy Social History Social History Type Response Smoking Status Exposure to Tobacco Smoke None; Cigarette Smoking Last 365 Days No; Reg Smoking Cessation Counseling No; Never smoker Assessment and Plan Extracted from: Title: Neurology Consult Author: Mario Ryan MD Date: 11/12/14 General Neurology Consult Note Requesting Physician/Service: ER/spectra link [id number] Reason for Consult:Migraine HISTORY OF PRESENT ILLNESS: 34 y/o female with PMH of anxiety, depression,rheumatic arthritis arnold chiari s/p decompression, seizure disorder and migraine headaches. She also has a pacemaker recently placed for cardiac arrhythmias. Neurology was consulted for persistent migraine refractory to her home medications. Migraine history: Onset: 20 y of age Location: [place] Nature of pain: throbbing Severity: moderate-severe frequency: Currently once/month Last migraine/duration: 1.5 months ago, lasted 2 days. D1 was severe pain and D2 was residual "migraine hangover" Migraine medications: Not on any prophylactic agents currently. Per notes from [employer], patient was on VPA at some point but it was d/c as it caused nausea. Per patient, she does not remeber taking the medication and if the nausea was secondary to the migraine itself or the medication. Takens Ibuprofen and imitrex as abortive agents. Triggers: No clear identifiable triggers, states she has multiple psychosocial stressors which affect her Associated symptoms: nausea and vomiting. Photophobia: yes Phonophonia: occasional Other headaches: Yes, cough headaches which were positional. relieved after her Chiari sx. Current episode: Started on tuesday, initially a mild headache which increased in intensity. Currently severe. She has tried Ibuprofen 800 mg q6h and Imitrex * 2 times (last this am) w/o any relif. She went to her PCP's office (Dr Mariano) and was given IV Toradol which per patient did not help. Since this am in ther ER she has received toradol 30 mg * 1+ IV Reglan * 1 along with Dex 10 mg IV * 1 and benadryl 25 mg * 1. Per patient, this has not helped alleviate her symptoms (though on exam, she appears to be comfortably resting). She did request for Neubain (Nabutalol) or Dilaudid, however we discussed these were not standard of care for migraines. She denies any decreased appetite, states she has been taking all her home medication. Her antidepressants include Effexor 300 mg and ativan 1 mg BID for anxiety. Seizures: Type: Pt does not know Last Sz: May 2014 Seizure medication: Keppra 500 mg BID Neurologist: None, has an appointment scheduled for Sameer Nunez on Tuesday CT head from 2013: normal Review of Systems: GEN: No fever, chills, night sweats, weight loss, fatigue EYES: No blurred vision, double vision, eye pain ENT: No decreased hearing, nose bleeding, nasal congestion, sore throat CARDIO: No chest pain, palpitation, orthopnea, dyspnea on exertion PULM: No shortness of breath, cough, wheezing, asthma, sputum, hemoptysis GI: Positive for nausea : No frequency, burning, hematuria, nocturia, hesitancy NEURO: As per HPI ENDO: No weight loss, weight gain, heat intolerance, cold intolerance SKIN: No rash, lesion, itching MUSC: No joint pain, muscle pain, arthritis, back pain Past Medical History: As reviewed in HPI. Rheumatoid arthritis, HTN, depression, anxiety, ?SVT s/p PPM insertion Past Surgical History: Hysterectomy, cholecystectomy on Arnold-Chiari released in 2000 and tonsillectomy. Family History: anxiety/dep/HTN/DM-2 in grandfather, mother with depression, HTN, suicide in cousin. Grandmother with DM-2, [place] Social History: Single. Has three children aged 15,6,7 yrs. Lives with children, parents and grandfather at home. Good social support. Is on disability. Per review of [employer] psych evaluation, was on probabtion for fraudulent use of pain medication in 2010. Medications: Please see EMR. Allergies: Klonopin, Lamictal Physical Exam: APPEARANCE - Active, alert, well developed, well nourished HEAD - Normocephalic and atraumatic EYES - Pupil equal, 4 mm and reactive to light PHARYNX - Mouth pink, mucous membranes moist. No tonsillar enlargement LUNGS - Clear to auscultation, no rales or rhonchi CV - Rate rhythm regular, no murmur, equal pulses bilaterally. ABDOMEN - Soft, non tender, with normal bowel sounds. 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 Gait: deferred Labs: (no lab data in past 24 hours) Diagnostic Tests: Prior CT-H reviewed Assessment: 34 y/o female with PMH of anxiety, depression,rheumatic arthritis arnold chiari s/p decompression, seizure disorder and migraine headaches. She also has a pacemaker recently placed for cardiac arrhythmias. Neurology was consulted for persistent migraine refractory to her home medications. Plan: - Please give migraine cocktail: VPA 500 mg IV *1 + Mg SO4 2 mg * 1 + 25 mg Vistril * 1 and 500 cc NS bolus. The cocktail should be administered at the same time for maximal benefit - Basic labs incl Mg, Phos, UDS, UA to rule out possible infection - Patient can continue on VPA 500 mg BID for migraine prophylaxis along with prednisone 40 mg * 3 days and melatonin 3 mg at bedtime for both sleep quality and migraine prevention. - Per patient, she has had a pacemaker placed recently for cardiac arrhythmias. In this situation, Imitrex as a prophylactic agent is a risk. We would recommend Cambia (diclofenac sodium) 50 mg prn severe headache, can be repeated 2 hrs prn for a maximum of 2 doses/d. - Baseline EKG should patient wish to continue taking her Imitrex. We strongly recommend d/cing it till she follows up with Dr Sameer Nunez on Tuesday. The case was discussed with the plant floor automation manager General Neurology [place] [phone] should you have any questions or concerns. Mario Ryan PGY-3 [facility] Neurology Attending Faculty Statement: I personally examined this patient and performed a complete history and neurological exam. I discussed my findings with those of Dr. Ryan. I personally reviewed any and all tests, laboratory and imaging studies that were performed . I discussed the diagnoses and relevant treatment plan and management issues with the patient, their accompanying family members or care givers and Dr. Ryan. I agree with all elements and components of the exam and treatment plan in their note. Exam: normal exam Findings: CT head: normal Plan: - Migraine cocktail - Depacon 500mg IV, Vistril 25mg po,1 L NS IV, Mg sulfate - If headache improves, can discharge with Depakote 500 mg po BID and prednisone 40 mg po daily x 3 days with PPI for GI protection - Pt has appointment with Neurologist next week Mariama Wilder MD Asst. Professor Neurology [id number]
--- OUTSIDE RECORDS SUMMARY | 2018-06-22 13:31 | XMS REPORT ---
Author Author Fernanda Gloria [facility] e[employer] Address Unknown Phone Unavailable Care Team Providers Care Wood Gluer Name Role Phone Fernanda Gloria CP Unavailable Encounters Encounter Location Date Unknown [facility] August 11, 2015 Problems Problem Type Condition ICD-9 Code Onset Dates Condition Status Problem Migraine G43.909 Active Problem RA (rheumatoid arthritis) M06.9 Active Problem GERD (gastroesophageal reflux disease) K21.9 Active Problem Insomnia G47.00 Active Problem Cardiac arrhythmia I49.9 Active Problem Seizure R56.9 Active Problem Anxiety F41.9 Active Problem Opiate addiction F11.20 Active Problem HTN (hypertension) I10 Active Problem Seizures R56.9 Active Social History Social History Element Qualifiers Date [...]
--- OUTSIDE RECORDS SUMMARY | 2018-06-22 13:32 | XMS REPORT ---
Author Author Fernanda Gloria Organization [employer] Address Unknown Phone Unavailable Care Team Providers Care Stitcher Special Machine Name Role Phone Fernanda Gloria CP Unavailable Allergies, Adverse Reactions, Alerts Substance Reaction Event Type Lamictal Info Not Available Drug Allergy Klonopin Info Not Available Drug Allergy Vyybryd Info Not Available Non Drug Allergy Encounters Encounter Location Date 2 week f/u [facility] July 22, 2015 Unknown [facility] July 29, 2015 Unknown [facility] August 11, 2015 Unknown [facility] August 22, 2015 EST W/PCP [facility] July 08, 2015 Problems Problem Type Condition ICD-9 Code Onset Dates Condition Status Problem Migraine G43.909 Active Problem RA (rheumatoid arthritis) M06.9 Active Problem GERD (gastroesophageal reflux disease) K21.9 Active Assessment Bronchitis J40 Active Problem Insomnia G47.00 Active Problem Cardiac arrhythmia I49.9 Active Problem Seizure R56.9 Active Problem Anxiety F41.9 Active Problem Opiate addiction F11.20 Active Problem HTN (hypertension) I10 Active Problem Seizures R56.9 Active Medications Medication Code System Code Instructions Start Date End Date Status Dosage Keppra [facility] [address]-14 500 MG Orally twice aday Active 1 tablet Doxycycline Monohydrate [facility] [address]-66 100 mg Orally every 12 hrs July 08, 2015 August 05, 2015 Active 1 capsule Folic Acid [facility] [address]-90 1 MG Orally Once a day Active 1 tablet Nystatin [facility] [address]-60 642595 UNIT/ML Mouth/Throat Twice a day x 10 days July 08, 2015 Active 5ml Suboxone [facility] [address]-59 8-2 MG Sublingual Once a day Active 1 tablet under the tongue and allow to dissolve Verapamil HCl [facility] [address]-60 120 MG Orally Once a day Active 1 capsule Multi For Her [facility] [address]6364-[address]90 Orally Active Unknown Nexium [facility] [address]-56 40 MG Orally Once a day Active 1 capsule Levaquin [facility] [address]-95 500 mg Orally Once a day July 29, 2015 August 08, 2015 Active 1 tablet Promethazine-DM [facility] [address]-91 6.25-15 MG/5ML Orally every 6 hrs July 29, 2015 Active 5 ml as needed Venlafaxine HCl ER [facility] [address]-82 225 MG Orally Once a day Active 1 tablet with food Ibuprofen Unknown 0 300 MG Orally every 6 hrs Active 1 as needed Ambien [facility] [address]-57 10 MG Orally Once at bedtime Active 1 tablet Metoprolol Tartrate [facility] [address]-58 100 MG Orally Twice a day Active 1 tablet Chlordiazepoxide-Amitriptyline [facility] [address]-43 5-12.5 MG Orally Once a day Active 1 tablet Social History Social History Element Qualifiers Date Reported Tobacco Use: . Are you a: current smoker, How many years have you smoked? 20, Pack Years 12 September 02, 2015 Use of recreational / street drugs? . Answer: No September 02, 2015 Marital Status: . seperated. September 02, 2015 Caffeine intake? . Status: Yes, What type: Coffee, Tea, Soft Drinks September 02, 2015 Do you exercise? . Answer: No September 02, 2015 Do you drink alcohol? . Status: No September 02, 2015 Travel outside [place]: . 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
--- OUTSIDE RECORDS SUMMARY | 2018-06-22 13:32 | XMS REPORT ---
Author Author Fernanda Gloria [facility] eClinicalWorks Address Unknown Phone Unavailable Care Team Providers Care Oilfield Plant And Field Operator Name Role Phone Fernanda Gloria Unavailable Encounters Encounter Location Date 2 week f/u [facility] July 22, 2015 Unknown [facility] July 29, 2015 Other, concerns over BP [facility] September 03, 2015 Other [facility] October 01, 2015 Unknown [facility] August 11, 2015 Unknown [facility] August 22, 2015 EST W/PCP [facility] July 08, 2015 Unknown [facility] September 08, 2015 Unknown [facility] Dec 23, 2015 Refill [facility] Dec 22, 2015 Unknown [facility] August 26, 2015 Unknown [facility] September 02, 2015 Unknown [facility] October 20, 2015 Unknown [facility] Dec 02, 2015 Unknown [facility] October 01, 2015 Unknown [facility] October 20, 2015 Unknown [facility] October 06, 2015 Unknown [facility] October 08, 2015 Unknown [facility] September 15, 2015 Unknown [facility] October 06, 2015 Unknown [facility] Dec 05, 2015 Problems Problem Type Condition ICD-9 Code Onset Dates Condition Status Problem Opiate addiction F11.20 Active Problem Seizures R56.9 Active Problem Anxiety F41.9 Active Problem Sleep apnea G47.30 Active Problem DM (diabetes mellitus) E11.9 Active Problem Chronic pain G89.29 Active Problem Cardiac arrhythmia I49.9 Active Problem HTN (hypertension) I10 Active Problem Seizure R56.9 Active Problem Insomnia G47.00 Active Assessment Anxiety F41.9 Active Problem Migraine G43.909 Active Problem GERD (gastroesophageal reflux disease) K21.9 Active Problem RA (rheumatoid arthritis) M06.9 Active Medications Medication Code System Code Instructions Start Date End Date Status Dosage Xanax MEDISPAN [address]-15 1 MG Orally three times a day (tid) October 27, 2015 Active 1 tablet Social History Social History Element Qualifiers Date Reported Tobacco Use: . Are you a: current smoker, How many years have you smoked? 20, Pack Years 12 October 27, 2015 Use of recreational / street drugs? . Answer: No October 27, 2015 Marital Status: . seperated. October 27, 2015 Caffeine intake? . Status: Yes, What type: Coffee, Tea, Soft Drinks October 27, 2015 Do you exercise? . Answer: No October 27, 2015 Do you drink alcohol? . Status: No October 27, 2015 Travel outside [place]: . 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
--- OUTSIDE RECORDS SUMMARY | 2018-06-22 13:32 | XMS REPORT ---
Author Author Fernanda Gloria [facility] eClinicalWorks Address Unknown Phone Unavailable Care Team Providers Care Access Spec Name Role Phone Fernanda Gloria Unavailable Encounters Encounter Location Date 2 week f/u [facility] July 22, 2015 Unknown [facility] July 29, 2015 Other, concerns over BP [facility] September 03, 2015 Other [facility] October 01, 2015 Unknown [facility] August 11, 2015 Unknown [facility] August 22, 2015 EST W/PCP [facility] July 08, 2015 Unknown [facility] September 08, 2015 Unknown [facility] August 26, 2015 Unknown [facility] September 02, 2015 Unknown [facility] October 20, 2015 Unknown [facility] October 01, 2015 Unknown [facility] October 20, 2015 Unknown [facility] October 06, 2015 [facility] October 08, 2015 Unknown [facility] September 15, 2015 Unknown [facility] October 06, 2015 Problems Problem Type Condition ICD-9 Code Onset Dates Condition Status Problem RA (rheumatoid arthritis) M06.9 Active Problem Anxiety F41.9 Active Problem Opiate addiction F11.20 Active Problem Migraine G43.909 Active Problem GERD (gastroesophageal reflux disease) K21.9 Active Problem DM (diabetes mellitus) E11.9 Active Problem Seizure R56.9 Active Problem Sleep apnea G47.30 Active Problem HTN (hypertension) I10 Active Problem Seizures R56.9 Active Problem Insomnia G47.00 Active Problem Cardiac arrhythmia I49.9 Active Medications Medication Code System Code Instructions Start Date End Date Status Dosage Ambien MEDISPAN [address]-13 10 mg Orally Once at bedtime Active 1 tablet Social History Social History Element Qualifiers Date Reported Tobacco Use: . Are you a: current smoker, How many years have you smoked? 20, Pack Years 12 October 07, 2015 Use of recreational / street drugs? . Answer: No October 07, 2015 Marital Status: . seperated. October 07, 2015 Caffeine intake? . Status: Yes, What type: Coffee, Tea, Soft Drinks October 07, 2015 Do you exercise? . Answer: No October 07, 2015 Do you drink alcohol? . Status: No October 07, 2015 Travel outside [place]: . 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
--- OUTSIDE RECORDS SUMMARY | 2018-06-22 13:32 | XMS REPORT ---
Author Author Fernanda Gloria Organization eClinicalWorks Address Unknown Phone Unavailable Care Team Providers Care Sub Acute Care Nurse Name Role Phone Fernanda Gloria CP Unavailable Allergies, Adverse Reactions, Alerts Substance Reaction Event Type Lamictal Info Not Available Drug Allergy Klonopin Info Not Available Drug Allergy Vyybryd Info Not Available Non Drug Allergy Encounters Encounter Location Date Unknown [facility] August 11, 2015 Unknown [facility] August 22, 2015 EST W/PCP [facility] July 08, 2015 Problems Problem Type Condition ICD-9 Code Onset Dates Condition Status Assessment Oral thrush B37.0 Active Assessment Impetigo L01.00 Active Assessment HTN (hypertension) I10 Active Assessment Seizures R56.9 Active Problem Seizures R56.9 Active Problem Anxiety F41.9 Active Problem HTN (hypertension) I10 Active Problem GERD (gastroesophageal reflux disease) K21.9 Active Problem Migraine G43.909 Active Problem Opiate addiction F11.20 Active Problem RA (rheumatoid arthritis) M06.9 Active Medications Medication Code System Code Instructions Start Date End Date Status Dosage Doxycycline Monohydrate [facility] [address]-83 100 mg Orally every 12 hrs July 08, 2015 July 18, 2015 Active 1 capsule Metoprolol Tartrate [facility] [address]-55 100 MG Orally Twice a day Active 1 tablet Folic Acid [facility] [address]-55 1 MG Orally Once a day Active 1 tablet Keppra [facility] [address]-89 500 MG Orally twice aday Active 1 tablet Nystatin [facility] [address]-66 731726 UNIT/ML Mouth/Throat Twice a day x 10 days July 08, 2015 Active 5ml Chlordiazepoxide-Amitriptyline [facility] [address]-17 5-12.5 MG Orally Once a day Active 1 tablet Multi For Her [facility] 23622-[address]27 Orally Active Unknown Verapamil HCl [facility] [address]-41 120 MG Orally Once a day Active 1 capsule Suboxone [facility] [address]-62 8-2 MG Sublingual Once a day Active 1 tablet under the tongue and allow to dissolve Nexium [facility] [address]-30 40 MG Orally Once a day Active 1 capsule Ibuprofen Unknown 0 300 MG Orally every 6 hrs Active 1 as needed Venlafaxine HCl ER [facility] [address]-37 225 MG Orally Once a day Active 1 tablet with food Ambien [facility] [address]-84 10 MG Orally Once at bedtime Active [...] September 02, 2015 Vital Signs Date/Time: July 08, 2015 Weight 222.7 lbs Height 65.0 in Temperature 99.3 F Cardiac Monitoring Heart Rate 87 /min Blood Pressure Diastolic 82 mm Hg Blood Pressure Systolic 115 mm Hg Summary Purpose eClinicalWorks Submission
--- OUTSIDE RECORDS SUMMARY | 2018-06-22 13:32 | XMS REPORT ---
Author Author Fernanda Gloria Organization eClinicalWorks Address Unknown Phone Unavailable Care Team Providers Care Belling Machine Operator Name Role Phone Fernanda Gloria CP Unavailable Encounters Encounter Location Date 2 week f/u [facility] July 22, 2015 Unknown [facility] July 29, 2015 Other, concerns over BP [facility] September 03, 2015 Other [facility] October 01, 2015 Unknown [facility] August 11, 2015 Unknown [facility] August 22, 2015 EST W/PCP [facility] July 08, 2015 Problems Problem Type Condition ICD-9 Code Onset Dates Condition Status Problem GERD (gastroesophageal reflux disease) K21.9 Active Problem Opiate addiction F11.20 Active Problem RA (rheumatoid arthritis) M06.9 Active Problem Migraine G43.909 Active Problem Seizure R56.9 Active Problem Insomnia G47.00 Active Problem DM (diabetes mellitus) E11.9 Active Problem Seizures R56.9 Active Problem Anxiety F41.9 Active Problem Cardiac arrhythmia I49.9 Active Problem HTN (hypertension) I10 Active Social History Social History Element Qualifiers Date Reported Tobacco Use: . Are you a: current smoker, How many years have you smoked? 20, Pack Years 12 September 15, 2015 Use of recreational / street drugs? . Answer: No September 15, 2015 Marital Status: . seperated. September 15, 2015 Caffeine intake? . Status: Yes, What type: Coffee, Tea, Soft Drinks September 15, 2015 Do you exercise? . Answer: No September 15, 2015 Do you drink alcohol? . Status: No September 15, 2015 Travel outside [place]: . 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
--- OUTSIDE RECORDS SUMMARY | 2018-06-22 13:32 | XMS REPORT ---
Author Author Fernanda Gloria Organization eClinicalWorks Address Unknown Phone Unavailable Care Team Providers Care Highway Engineering Technician Name Role Phone Fernanda Gloria CP Unavailable Allergies, Adverse Reactions, Alerts Substance Reaction Event Type Lamictal Info Not Available Drug Allergy Klonopin Info Not Available Drug Allergy Vyybryd Info Not Available Non Drug Allergy Encounters Encounter Location Date 2 week f/u [facility] July 22, 2015 Unknown [facility] July 29, 2015 Unknown [facility] August 11, 2015 Unknown [facility] August 22, 2015 EST W/PCP [facility] July 08, 2015 Problems Problem Type Condition ICD-9 Code Onset Dates Condition Status Problem Migraine G43.909 Active Problem RA (rheumatoid arthritis) M06.9 Active Problem GERD (gastroesophageal reflux disease) K21.9 Active Problem Insomnia G47.00 Active Problem Cardiac arrhythmia I49.9 Active Problem Seizure R56.9 Active Problem Anxiety F41.9 Active Problem Opiate addiction F11.20 Active Problem HTN (hypertension) I10 Active Problem Seizures R56.9 Active Assessment Urinary tract infection, site unspecified N39.0 Active Assessment Cardiac arrhythmia I49.9 Active Assessment Seizure R56.9 Active Assessment Migraine G43.909 Active Assessment Right shoulder pain M25.511 Active Assessment HTN (hypertension) I10 Active Assessment Insomnia G47.00 Active Assessment Cellulitis L03.90 Active Medications Medication Code System Code Instructions Start Date End Date Status Dosage Venlafaxine HCl ER [facility] [address]-35 225 MG Orally Once a day Active 1 tablet with food Metoprolol Tartrate [facility] [address]-10 100 MG Orally Twice a day Active 1 tablet Folic Acid [facility] [address]-85 1 MG Orally Once a day Active 1 tablet Chlordiazepoxide-Amitriptyline [facility] [address]-74 5-12.5 MG Orally Once a day Active 1 tablet Suboxone [facility] [address]-45 8-2 MG Sublingual Once a day Active 1 tablet under the tongue and allow to dissolve Doxycycline Monohydrate [facility] [address]-24 100 mg Orally every 12 hrs July 08, 2015 August 05, 2015 Active 1 capsule Verapamil HCl [facility] [address]-15 120 MG Orally Once a day Active 1 capsule Ambien [facility] [address]-17 10 MG Orally Once at bedtime Active 1 tablet Multi For Her [facility] 68[address]54 Orally Active Unknown Keppra [facility] [address]-84 500 MG Orally twice aday Active 1 tablet Ibuprofen Unknown 0 300 MG Orally every 6 hrs Active 1 as needed Nystatin [facility] [address]-24 710124 UNIT/ML Mouth/Throat Twice a day x 10 days July 08, 2015 Active 5ml Nexium [facility] [address]-28 40 MG Orally Once a day Active 1 capsule Social History Social History Element Qualifiers Date [...] September 02, 2015 Vital Signs Date/Time: July 22, 2015 Weight 223 lbs Height 65.0 in Temperature 98.8 F Cardiac Monitoring Heart Rate 85 /min Blood Pressure Diastolic 76 mm Hg Blood Pressure Systolic 126 mm Hg Summary Purpose eClinicalWorks Submission
--- OUTSIDE RECORDS SUMMARY | 2018-06-22 13:32 | XMS REPORT ---
Author Author Fernanda Gloria Organization eClinicalWorks Address Unknown Phone Unavailable Care Team Providers Care Patternmaker Plastics Name Role Phone Fernanda Gloria CP Unavailable Allergies, Adverse Reactions, Alerts Substance Reaction Event Type Lamictal Info Not Available Drug Allergy Klonopin Info Not Available Drug Allergy Vyybryd Info Not Available Non Drug Allergy Encounters Encounter Location Date 2 week f/u [facility] July 22, 2015 Unknown [facility] July 29, 2015 Other, concerns over BP [facility] September 03, 2015 Other [facility] October 01, 2015 Unknown [facility] August 11, 2015 Unknown [facility] September 15, 2015 Unknown [facility] August 22, 2015 EST W/PCP [facility] July 08, 2015 Unknown [facility] September 08, 2015 Unknown [facility] August 26, 2015 Unknown [facility] September 02, 2015 Problems Problem Type Condition ICD-9 Code Onset Dates Condition Status Problem GERD (gastroesophageal reflux disease) K21.9 Active Problem Opiate addiction F11.20 Active Problem RA (rheumatoid arthritis) M06.9 Active Problem Seizure R56.9 Active Problem Insomnia G47.00 Active Problem DM (diabetes mellitus) E11.9 Active Problem Seizures R56.9 Active Problem Anxiety F41.9 Active Problem Cardiac arrhythmia I49.9 Active Problem HTN (hypertension) I10 Active Assessment Migraine G43.909 Active Assessment Seizure R56.9 Active Assessment Vaginal bleeding N93.9 Active Assessment DM (diabetes mellitus) E11.9 Active Assessment HTN (hypertension) I10 Active Assessment UTI (urinary tract infection) N39.0 Active Assessment Acute sinusitis J01.90 Active Problem Migraine G43.909 Active Medications Medication Code System Code Instructions Start Date End Date Status Dosage Keppra MEDISPAN [address]-63 500 mg Orally twice aday Active 1 tablet Chlordiazepoxide-Amitriptyline MEDISPAN [address]-89 5-12.5 MG Orally Once a day Active 1 tablet [facility]an [facility] [address]-43 100 mg Orally Once a day September 08, 2015 September 15, [address] [facility] [address]-74 1 MG Orally three times a day (tid) August 22, 2015 Active 1 tablet as needed Nystatin [facility] [address]-05 713740 UNIT/ML Mouth/Throat Twice a day x 10 days July 08, 2015 Active 5ml Metoprolol Tartrate [facility] [address]-56 100 mg Orally Twice a day Active 1 tablet Ibuprofen Unknown 0 300 MG Orally every 6 hrs Active 1 as needed Clonidine HCl [facility] [address]-39 0.2 MG Orally four times a day (qid) as needed (prn) August 26, [address] [facility] [address]-07 Orally every 12 hrs Active [address] [facility] [address]-18 1 MG Orally Once a day Active 1 tablet Venlafaxine HCl ER [facility] [address]-18 225 MG Orally Once a day Active 1 tablet with food Verapamil HCl [facility] [address]-86 120 MG Orally Once a day Active [address] [facility] [address]-16 10 MG Orally Three times a day Active 1 tablet with food or milk PredniSONE [facility] [address]-15 20 MG Orally Once a day Active 1 tablet with food or milk [place] [facility] [address]-52 7.5-325 MG Orally every 8 hrs September 02, 2015 Active 1 tablet as needed Amlodipine Besylate [facility] [address]-03 10 MG Orally Once a day September 03, 2015 Active [address] [facility] [address]-13 108 (90 Base) MCG/ACT Inhalation every 4 hrs Active 2 puffs as needed Metformin HCl [facility] [address]-27 500 mg Orally Twice a day September 08, 2015 Active 1 tablet with meals Ambien [facility] [address]-41 10 mg Orally Once at bedtime Active [address] [facility] [address]-85 40 MG Orally Once a day Active 1 capsule [address] For Her [facility] 29015-[address]269 Orally Active Unknown Social History Social History Element Qualifiers Date Reported Tobacco Use: . Are you a: current smoker, How many years have you smoked? 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
--- OUTSIDE RECORDS SUMMARY | 2018-06-22 13:32 | XMS REPORT ---
Author Author Fernanda Gloria Organization eClinicalWorks Address Unknown Phone Unavailable Care Team Providers Care Clinical Training Coordinator Name Role Phone Fernanda Gloria Unavailable Encounters Encounter Location Date 2 week f/u [facility] July 22, 2015 Unknown [facility] July 29, 2015 Other, concerns over BP [facility] September 03, 2015 Other [facility] October 01, 2015 Unknown [facility] August 11, 2015 Unknown [facility] August 22, 2015 EST W/PCP [facility] July 08, 2015 Unknown [facility] September 08, 2015 Unknown [facility] August 26, 2015 Unknown [facility] September 02, 2015 Unknown [facility] October 06, 2015 Unknown [facility] October 08, 2015 Unknown [facility] September 15, 2015 Unknown [facility] October 06, 2015 Problems Problem Type Condition [...] G47.00 Active Problem Cardiac arrhythmia I49.9 Active Social History Social History Element Qualifiers [...]
--- OUTSIDE RECORDS SUMMARY | 2018-06-22 13:32 | XMS REPORT ---
Author Author Fernanda Gloria [facility] eClinicalWorks Address Unknown Phone Unavailable Care Team Providers Care Water Resources Program Director Name Role Phone Fernanda Gloria Unavailable Encounters Encounter Location Date 2 week f/u [facility] July 22, 2015 Unknown [facility] July 29, 2015 Other, concerns over BP [facility] September 03, 2015 Other [facility] October 01, 2015 Unknown [facility] August 11, 2015 Unknown [facility] August 22, 2015 EST W/PCP [facility] July 08, 2015 Unknown [facility] September 08, 2015 Unknown [facility] Dec 23, 2015 Refill [facility] Dec 22, 2015 Unknown [facility] August 26, 2015 Unknown [facility] September 02, 2015 Unknown [facility] October 20, 2015 Unknown [facility] Dec 02, 2015 Unknown [facility] October 01, 2015 Unknown [facility] October 20, 2015 Unknown [facility] Dec 26, 2015 Unknown [facility] October 06, 2015 Unknown [facility] October 08, 2015 Unknown [facility] September 15, 2015 Unknown [facility] October 06, 2015 Unknown [facility] Dec 05, 2015 Problems Problem Type Condition ICD-9 Code Onset Dates Condition Status Problem Opiate addiction F11.20 Active Problem Seizures R56.9 Active Problem Anxiety F41.9 Active Problem Sleep apnea G47.30 Active Problem DM (diabetes mellitus) E11.9 Active Problem Chronic pain G89.29 Active Problem Cardiac arrhythmia I49.9 Active Problem HTN (hypertension) I10 Active Problem Seizure R56.9 Active Problem Insomnia G47.00 Active Problem Migraine G43.909 Active Problem GERD (gastroesophageal reflux disease) K21.9 Active Problem RA (rheumatoid arthritis) M06.9 Active Medications Medication Code System Code Instructions Start Date End Date Status Dosage Tylenol/Codeine #4 [facility] [address]-78 300-60 MG Orally every 6 hrs PRN Dec 26, 2015 Feb 04, 2016 Active 1 tablet as needed Social History [...]
--- OUTSIDE RECORDS SUMMARY | 2018-06-22 13:32 | XMS REPORT ---
Author Author Fernanda Gloria [facility] eClinicalWorks Address Unknown Phone Unavailable Care Team Providers Care Money Market Dealer Name Role Phone Fernanda Gloria Unavailable Encounters Encounter Location Date 2 week f/u [facility] July 22, 2015 Unknown [facility] July 29, 2015 Other, concerns over BP [facility] September 03, 2015 Other [facility] October 01, 2015 Unknown [facility] August 11, 2015 Unknown [facility] August 22, 2015 EST W/PCP [facility] July 08, 2015 Unknown [facility] September 08, 2015 Unknown [facility] August 26, 2015 Unknown [facility] September 02, 2015 Unknown [facility] October 06, 2015 Unknown [facility] September 15, 2015 Unknown [facility] October 06, 2015 Problems Problem Type [...] I49.9 Active Problem HTN (hypertension) I10 Active Medications Medication Code System Code Instructions Start Date End Date Status Dosage Fioricet [facility] [address]-81 50-325-40 MG Orally every 4 hrs October 06, 2015 October 16, 2015 Active 1 tablet as needed Social [...]
--- OUTSIDE RECORDS SUMMARY | 2018-06-22 13:32 | XMS REPORT ---
Author Author Fernanda Gloria [facility] eClinicalWorks Address Unknown Phone Unavailable Care Team Providers Care Cementer Name Role Phone Fernanda Gloria Unavailable Encounters Encounter Location Date 2 week f/u [facility] July 22, 2015 Unknown [facility] July 29, 2015 Other, concerns over BP [facility] September 03, 2015 Unknown [facility] August 11, 2015 Unknown [facility] August 22, 2015 EST W/PCP 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
--- OUTSIDE RECORDS SUMMARY | 2018-06-22 13:32 | XMS REPORT ---
Author Author Fernanda Gloria [facility] eClinicalWorks Address Unknown Phone Unavailable Care Team Providers Care Mail Rider Name Role Phone Fernanda Gloria Unavailable Encounters Encounter Location Date 2 week f/u [facility] July 22, 2015 Unknown [facility] July 29, 2015 Other, concerns over BP [facility] September 03, 2015 Other [facility] October 01, 2015 Unknown [facility] August 11, 2015 Unknown [facility] August 22, 2015 EST W/PCP [facility] July 08, 2015 Unknown [facility] September 08, 2015 Unknown [facility] August 26, 2015 Unknown [facility] September 02, 2015 Unknown [facility] October 01, 2015 Unknown [facility] October 06, 2015 Unknown [facility] October 08, 2015 Unknown [facility] September 15, 2015 Unknown [facility] October 06, 2015 Problems Problem Type [...] Instructions Start Date End Date Status Dosage Ibuprofen MEDISPAN [address]-63 800 MG by mouth twice a day October 01, 2015 Dec 30, 2015 Active 1 tablet Social History Social [...]
--- OUTSIDE RECORDS SUMMARY | 2018-06-22 13:32 | XMS REPORT ---
Author Author Fernanda Gloria [facility] eClinicalWorks Address Unknown Phone Unavailable Care Team Providers Care Funnel Coater Name Role Phone Fernanda Gloria Unavailable Encounters Encounter Location Date 2 week f/u [facility] July 22, 2015 Unknown [facility] July 29, 2015 Other, concerns over BP [facility] September 03, 2015 Other [facility] October 01, 2015 Unknown [facility] August 11, 2015 Unknown [facility] August 22, 2015 EST W/PCP [facility] July 08, 2015 Unknown [facility] September 08, 2015 Unknown [facility] August 26, 2015 Unknown [facility] September 02, 2015 Unknown [facility] October 20, 2015 Unknown [facility] Dec 02, 2015 Unknown [facility] October 01, 2015 Unknown [facility] October 20, 2015 Unknown [facility] October 06, 2015 Unknown [facility] October 08, 2015 Unknown [facility] September 15, 2015 Unknown [facility] October 06, 2015 Unknown [facility] Dec 05, 2015 Problems Problem Type Condition ICD-9 Code Onset Dates Condition Status Problem Opiate addiction F11.20 Active Problem Seizures R56.9 Active Problem Anxiety F41.9 Active Problem Sleep apnea G47.30 Active Problem DM (diabetes mellitus) E11.9 Active Problem Chronic pain G89.29 Active Problem Cardiac arrhythmia I49.9 Active Problem HTN (hypertension) I10 Active Problem Seizure R56.9 Active Problem Insomnia G47.00 Active Assessment Oral thrush B37.0 Active Problem Migraine G43.909 Active Problem GERD (gastroesophageal reflux disease) K21.9 Active Problem RA (rheumatoid arthritis) M06.9 Active Medications Medication Code System Code Instructions Start Date End Date Status Dosage Nystatin MEDISPAN [address]-92 [id number] UNIT/ML Mouth/Throat Twice a day x 10 days July 08, 2015 Active 5ml Social History Social History Element Qualifiers Date [...]
--- OUTSIDE RECORDS SUMMARY | 2018-06-22 13:32 | XMS REPORT ---
Author Author Fernanda Gloria [facility] eClinicalWorks Address Unknown Phone Unavailable Care Team Providers Care Mirror Maker Name Role Phone Fernanda Gloria Unavailable Encounters Encounter Location Date 2 week f/u [facility] July 22, 2015 Unknown [facility] July 29, 2015 Other, concerns over BP [facility] September 03, 2015 Other [facility] October 01, 2015 Unknown [facility] August 11, 2015 Unknown [facility] August 22, 2015 EST W/PCP [facility] July 08, 2015 Unknown [facility] September 08, 2015 Unknown [facility] August 26, 2015 Unknown [facility] September 02, 2015 Unknown [facility] October 20, 2015 Unknown [facility] Dec 02, 2015 Unknown [facility] October 01, 2015 Unknown [facility] October 20, 2015 Unknown [facility] October 06, 2015 Unknown [facility] October 08, 2015 Unknown [facility] September 15, 2015 Unknown [facility] October 06, 2015 Problems Problem Type [...] Date End Date Status Dosage Xanax MEDISPAN [address]-90 1 MG Orally three times a day [...]
--- OUTSIDE RECORDS SUMMARY | 2018-06-22 13:32 | XMS REPORT ---
Author Author Fernanda Gloria [facility] e[employer] Address Unknown Phone Unavailable Care Team Providers Care Baby Stroller Rental Clerk Name Role Phone Fernanda Gloria Unavailable Encounters Encounter Location Date 2 week f/u [facility] July 22, 2015 Unknown [facility] July 29, 2015 Other, concerns over BP [facility] September 03, 2015 Other [facility] October 01, 2015 Unknown [facility] August 11, 2015 Unknown [facility] August 22, 2015 EST W/PCP [facility] July 08, 2015 Unknown [facility] September 08, 2015 Unknown [facility] August 26, 2015 Unknown [facility] September 02, 2015 Unknown [facility] October 20, 2015 Unknown [facility] October 01, 2015 Unknown [facility] October 20, 2015 Unknown [facility] October 06, 2015 [facility] October 08, 2015 Unknown [facility] September 15, 2015 Unknown [facility] October 06, 2015 Problems Problem Type Condition [...] End Date Status Dosage [facility]af[facility] [address]-36 225 MG Orally Once a day Active 1 tablet with food Social History Social History Element Qualifiers Date [...]
--- OUTSIDE RECORDS SUMMARY | 2018-06-22 13:32 | XMS REPORT ---
Author Author Fernanda Gloria Organization eClinicalWorks Address Unknown Phone Unavailable Care Team Providers Care Extract Puller Name Role Phone Fernanda Gloria CP Unavailable Allergies, Adverse Reactions, Alerts Substance Reaction Event Type Lamictal Info Not Available Drug Allergy Klonopin Info Not Available Drug Allergy Vyybryd Info Not Available Non Drug Allergy Encounters Encounter Location Date 2 week f/u [facility] July 22, 2015 Unknown [facility] July 29, 2015 Other, concerns over BP [facility] September 03, 2015 Other [facility] October 01, 2015 Unknown [facility] August 11, 2015 Unknown [facility] September 15, 2015 Unknown [facility] August 22, 2015 EST W/PCP [facility] July 08, 2015 Unknown [facility] September 08, 2015 Unknown [facility] August 26, 2015 Unknown [facility] September 02, 2015 Problems Problem Type Condition ICD-9 Code Onset Dates Condition Status Problem Migraine G43.909 Active Problem RA (rheumatoid arthritis) M06.9 Active Problem GERD (gastroesophageal reflux disease) K21.9 Active Assessment HTN (hypertension) I10 Active Assessment Migraine headache G43.909 Active Problem Insomnia G47.00 Active Problem Cardiac arrhythmia I49.9 Active Problem Seizure R56.9 Active Problem Anxiety F41.9 Active Problem Opiate addiction F11.20 Active Problem HTN (hypertension) I10 Active Problem Seizures R56.9 Active Medications Medication Code System Code Instructions Start Date End Date Status Dosage Keppra [facility] [address]-62 500 MG Orally twice aday Active 1 tablet Ativan [facility] [address]-82 1 MG Orally three times a day (tid) August 22, 2015 Active 1 tablet as needed [facility] [address]-33 20 MG Orally Once a day Active 1 tablet with food or milk Nexium [facility] [address]-53 40 MG Orally Once a day Active 1 capsule Metoprolol Tartrate [facility] [address]-05 100 MG Orally Twice a day Active 1 tablet Nystatin [facility] [address]-32 823174 UNIT/ML Mouth/Throat Twice a day x 10 days July 08, 2015 Active 5ml [place] [facility] [address]-30 7.5-325 MG Orally every 8 hrs September 02, 2015 Active 1 tablet as needed Clonidine HCl [facility] [address]-12 0.2 MG Orally four times a day (qid) as needed (prn) August 26, 2015 Active 1 tablet ProAir HFA [facility] [address]-57 108 (90 Base) MCG/ACT Inhalation every 4 hrs Active 2 puffs as needed Ibuprofen Unknown 0 300 MG Orally every 6 hrs Active 1 as needed Ernie [facility] [address]-07 10 mg Orally Once at bedtime Active 1 tablet Multi For Her [facility] 03351-[address]217 Orally Active Unknown Verapamil HCl [facility] [address]-18 120 MG Orally Once a day Active 1 capsule Chlordiazepoxide-Amitriptyline [facility] [address]-49 5-12.5 MG Orally Once a day Active 1 tablet Venlafaxine HCl ER [facility] [address]-51 225 MG Orally Once a day Active 1 tablet with food Folic Acid [facility] [address]-96 1 MG Orally Once a day Active [...] September 15, 2015 Vital Signs Date/Time: September 02, 2015 Weight 222.7 lbs Height 65.0 in Temperature 98.5 F Cardiac Monitoring Heart Rate 76 /min Blood Pressure Diastolic 113 mm Hg Blood Pressure Systolic 181 mm Hg Summary Purpose eClinicalWorks Submission
--- OUTSIDE RECORDS SUMMARY | 2018-06-22 13:32 | XMS REPORT ---
Author Author Fernanda Gloria Organization e[employer]Works Address Unknown Phone Unavailable Care Team Providers Care Lumber Stacker Driver Name Role Phone Fernanda Gloria CP Unavailable Allergies, Adverse Reactions, Alerts Substance Reaction Event Type Lamictal Info Not Available Drug Allergy Klonopin Info Not Available Drug Allergy Vyybryd Info Not Available Non Drug Allergy Encounters Encounter Location Date 2 week f/u [facility] July 22, 2015 Unknown [facility] July 29, 2015 Other, concerns over BP [facility] September 03, 2015 Other [facility] October 01, 2015 Unknown [facility] August 11, 2015 Unknown [facility] August 22, 2015 EST W/PCP [facility] July 08, 2015 Unknown [facility] August 26, 2015 Problems Problem Type Condition ICD-9 Code Onset Dates Condition Status Problem Migraine G43.909 Active Problem RA (rheumatoid arthritis) M06.9 Active Problem GERD (gastroesophageal reflux disease) K21.9 Active Assessment Fever R50.9 Active Assessment HTN (hypertension) I10 Active Problem Insomnia G47.00 Active Problem Cardiac arrhythmia I49.9 Active Problem Seizure R56.9 Active Problem Anxiety F41.9 Active Problem Opiate addiction F11.20 Active Problem HTN (hypertension) I10 Active Problem Seizures R56.9 Active Medications Medication Code System Code Instructions Start Date End Date Status Dosage Ativan [facility] [address]-85 1 MG Orally three times a day (tid) August 22, 2015 Active 1 tablet as needed Verapamil HCl [facility] [address]-35 120 MG Orally Once a day Active 1 capsule Folic Acid [facility] [address]-13 1 MG Orally Once a day Active 1 tablet Multi For Her [facility] 070[address]225 Orally Active Unknown Keppra [facility] [address]-88 500 MG Orally twice aday Active 1 tablet Ibuprofen Unknown 0 300 MG Orally every 6 hrs Active 1 as needed Metoprolol Tartrate [facility] [address]-36 100 MG Orally Twice a day Active 1 tablet Nystatin [facility] [address]-38 610785 UNIT/ML Mouth/Throat Twice a day x 10 days July 08, 2015 Active 5ml Chlordiazepoxide-Amitriptyline [facility] [address]-78 5-12.5 MG Orally Once a day Active 1 tablet Nexium [facility] [address]-55 40 MG Orally Once a day Active 1 capsule ProAir HFA [facility] [address]-71 108 (90 Base) MCG/ACT Inhalation every 4 hrs Active 2 puffs as needed Ambien [facility] [address]-73 10 mg Orally Once at bedtime Active 1 tablet Venlafaxine HCl ER [facility] [address]-69 225 MG Orally Once a day Active 1 tablet with food Clonidine HCl [facility] [address]-88 0.2 MG Orally four times a day (qid) as needed (prn) August 26, 2015 Active 1 tablet Social History Social [...] parent September 15, 2015 Vital Signs Date/Time: August 26, 2015 Weight 217 lbs Height 65.0 in Temperature 98.5 F Cardiac Monitoring Heart Rate 104 /min Blood Pressure Diastolic 87 mm Hg Blood Pressure Systolic 134 mm Hg Summary Purpose eClinicalWorks Submission
--- OUTSIDE RECORDS SUMMARY | 2018-06-22 13:32 | XMS REPORT ---
Author Author Fernanda Gloria Organization e[employer]Works Address Unknown Phone Unavailable Care Team Providers Care Inspector Penetrant Name Role Phone Fernanda Gloria Unavailable Encounters Encounter Location Date 2 week f/u [facility] July 22, 2015 Unknown [facility] July 29, 2015 Other, concerns over BP [facility] September 03, 2015 Other [facility] October 01, 2015 Unknown [facility] August 11, 2015 Unknown [facility] August 22, 2015 EST W/PCP [facility] July 08, 2015 Unknown [facility] September 08, 2015 Unknown [facility] August 26, 2015 Unknown [facility] September 02, 2015 Unknown [facility] October 06, 2015 Unknown [facility] September 15, 2015 Unknown [facility] October 06, 2015 Problems Problem Type [...] Start Date End Date Status Dosage Ativan MEDISPAN [address]-43 1 MG Orally three times a day [...]
--- OUTSIDE RECORDS SUMMARY | 2018-06-22 13:32 | XMS REPORT ---
Author Author Fernanda Gloria Organization e[employer]Works Address Unknown Phone Unavailable Care Team Providers Care Sales Representative Printing Supplies Name Role Phone Fernanda Gloria CP Unavailable Allergies, Adverse Reactions, Alerts Substance Reaction Event Type Lamictal Info Not Available Drug Allergy Klonopin Info Not Available Drug Allergy Vyybryd Info Not Available Non Drug Allergy Encounters Encounter Location Date 2 week f/u [facility] July 22, 2015 Unknown [facility] July 29, 2015 Other, concerns over BP [facility] September 03, 2015 Other [facility] October 01, 2015 Unknown [facility] August 11, 2015 Unknown [facility] August 22, 2015 EST W/PCP [facility] July 08, 2015 Unknown [facility] September 08, 2015 Unknown [facility] August 26, 2015 Unknown [facility] September 02, 2015 Unknown [facility] October 06, 2015 Unknown [facility] September 15, 2015 Unknown [facility] October 06, 2015 Problems Problem [...] Active Problem HTN (hypertension) I10 Active Assessment Tachycardia R00.0 Active Assessment Bronchitis J40 Active Problem Migraine G43.909 Active Medications Medication Code System Code Instructions Start Date End Date Status Dosage Verapamil HCl [facility] [address]-51 120 MG Orally Once a day Active 1 capsule ProAir HFA [facility] [address]-38 108 (90 Base) MCG/ACT Inhalation every 4 hrs Active 2 puffs as needed Promethazine-Codeine [facility] [address]-25 6.25-10 MG/5ML Orally every 6 hrs September 15, 2015 Active 5 ml as needed Bim [facility] [address]-64 7.5-325 MG Orally every 8 hrs September 02, 2015 Active 1 tablet as needed Ambien [facility] [address]-98 10 mg Orally Once at bedtime Active 1 tablet Promethazine-DM [facility] [address]-57 6.25-15 MG/5ML Orally every 6 hrs Active 5 ml as needed Nexium [facility] [address]-90 40 MG Orally Once a day Active 1 capsule Venlafaxine HCl ER [facility] [address]-59 225 MG Orally Once a day Active 1 tablet with food Metoprolol Tartrate [facility] [address]-43 100 mg Orally Twice a day Active 1 tablet Mucinex Sinus-Max [facility] [address]-50 10-650-400 MG/20ML Orally every 4 hrs Active 20 ml as needed Metformin HCl [facility] [address]-48 500 mg Orally Twice a day September 08, 2015 Active 1 tablet with meals Augmentin [facility] [address]-71 Orally every 12 hrs Active 1 tablet Doxycycline [facility] [address]-74 40 MG Orally Once a day Active 1 capsule on an empty stomach in the morning Folic Acid [facility] [address]-64 1 MG Orally Once a day Active 1 tablet Nystatin [facility] [address]-78 541068 UNIT/ML Mouth/Throat Twice a day x 10 days July 08, 2015 Active 5ml Keppra [facility] [address]-68 500 mg Orally twice aday Active 1 tablet Chlordiazepoxide-Amitriptyline [facility] [address]-27 5-12.5 MG Orally Once a day Active 1 tablet Multi For Her [facility] 63048-29944 Orally Active Unknown Baclofen [facility] [address]-43 10 MG Orally Three times a day Active 1 tablet with food or milk Diflucan [facility] [address]-84 100 mg Orally Once a day September 08, 2015 September 15, 2015 Active 1 tablet Ativan [facility] [address]-01 1 MG Orally three times a day (tid) August 22, 2015 Active 1 tablet as needed Ibuprofen Unknown 0 300 MG Orally every 6 hrs Active 1 as needed Social History Social History Element [...] September 15, 2015 Vital Signs Date/Time: September 15, 2015 Weight 221 lbs Height 65.0 in Temperature 98.3 F Cardiac Monitoring Heart Rate 81 /min Blood Pressure Diastolic 93 mm Hg Blood Pressure Systolic 139 mm Hg Summary Purpose eClinicalWorks Submission
--- OUTSIDE RECORDS SUMMARY | 2018-06-22 13:33 | XMS REPORT ---
Author Author Fernanda Gloria Organization [employer] Address Unknown Phone Unavailable Care Team Providers Care Backhaul Driver Name Role Phone Fernanda Gloria Unavailable Allergies, Adverse Reactions, Alerts Substance Reaction Event Type Lamictal Info Not Available Drug Allergy Klonopin Info Not Available Drug Allergy Vyybryd Info Not Available Non Drug Allergy Encounters Encounter Location Date Unknown [facility] September 08, 2015 Unknown [facility] October 20, 2015 Unknown [facility] Dec 02, 2015 Unknown [facility] October 01, 2015 Unknown [facility] October 20, 2015 Unknown [facility] October 06, 2015 Unknown [facility] October 08, 2015 Unknown [facility] September 15, 2015 Unknown [facility] October 06, 2015 Unknown [facility] Dec 05, 2015 2 week f/u [facility] July 22, 2015 Unknown [facility] July 29, 2015 Other, concerns over BP [facility] September 03, 2015 Other [facility] October 01[facility] 2015 Unknown [facility] August 11, 2015 Unknown [facility] August 22, 2015 EST W/PCP [facility] July 08, 2015 Unknown [facility] Dec 23, 2015 Refill [facility] Dec 22, 2015 Unknown [facility] August 26, 2015 Unknown [facility] September 02, 2015 Unknown [facility] Jan 30, 2016 Refill [facility] Feb 20, 2016 Unknown [facility] Mar 08, 2016 REFILLS [facility] Feb 24, 2016 Unknown [facility] Dec 26, 2015 Unknown [facility] Dec 29, 2015 Unknown [facility] Dec 31, 2015 Unknown [facility] Jan 30, 2016 Problems Problem Type Condition ICD-9 Code Onset Dates Condition Status Problem Seizures R56.9 Active Problem Cardiac arrhythmia I49.9 Active Problem HTN (hypertension) I10 Active Problem Essential hypertension I10 Active Problem Chronic pain G89.29 Active Problem Migraine without aura and without status migrainosus, not intractable G43.009 Active Problem Seizure R56.9 Active Problem Insomnia G47.00 Active Problem Sleep apnea G47.30 Active Problem DM (diabetes mellitus) E11.9 Active Assessment Essential hypertension I10 Active Problem GERD (gastroesophageal reflux disease) K21.9 Active Problem RA (rheumatoid arthritis) M06.9 Active Assessment Migraine without aura and without status migrainosus, not intractable G43.009 Active Problem Opiate addiction F11.20 Active Problem Migraine G43.909 Active Problem Anxiety F41.9 Active Medications Medication Code System Code Instructions Start Date End Date Status Dosage Gradyra [facility] [address]-48 750 MG Orally every 12 hrs October 27, 2015 Active 1 tablet Venlafaxine HCl ER [facility] [address]-27 225 MG Orally Once a day October 21, 2015 Active 1 tablet with food Digoxin [facility] [address]-28 0.25 MG/ML Injection Once a day Active 1 tablet Chlordiazepoxide-Amitriptyline [facility] [address]-00 5-12.5 MG Orally Once a day Active 1 tablet Effexor XR [facility] 94407060394 150 MG Active TAKE TWO (2) CAPSULE(S) BY MOUTH DAILY. Multi For Her [facility] 49387-59081 Orally Active Unknown Ambien [facility] 39093810553 10 MG Active TAKE ONE (1) TABLET(S) BY MOUTH AT BEDTIME. Levofloxacin [facility] [address]-84 500 MG Orally Once a day Active 1 tablet Doxycycline [facility] [address]-84 40 MG Orally Once a day Active 1 capsule on an empty stomach in the morning Kera [facility] [address]-60 500 mg Orally twice aday Active 1 tablet Metoprolol Tartrate [facility] [address]-45 100 mg Orally Twice a day Active 1 tablet Xanax [facility] [address]-45 1 MG Orally three times a day (tid) October 27, 2015 Active 1 tablet [place] [facility] [address]-84 7.5-325 MG Orally every 8 hrs September 02, 2015 Active 1 tablet as needed Folic Acid [facility] [address]-99 1 MG Orally Once a day Active 1 tablet Nexium [facility] [address]-30 40 MG Orally Once a day Active 1 capsule Verapamil HCl [facility] [address]-64 120 MG Orally Once a day Active 1 capsule ProAir HFA [facility] [address]-36 108 (90 Base) MCG/ACT Inhalation every 4 hrs Active 2 puffs as needed Fioricet [facility] 07482712704 50-325-40 MG Active TAKE ONE (1) TABLET(S) BY MOUTH EVERY FOUR HOURS NEEDED. Social History Social History Element Qualifiers Date Reported Tobacco Use: . Are you a: current smoker, How many years have you smoked? 20, Pack Years 12 Feb 24, 2016 Use of recreational / street drugs? . Answer: No Feb 24, 2016 Marital Status: . seperated. Feb 24, 2016 Caffeine intake? . Status: Yes, What type: Coffee, Tea, Soft Drinks Feb 24, 2016 Do you exercise? . Answer: No Feb 24, 2016 Do you drink alcohol? . Status: No Feb 24, 2016 Travel outside [place]: . 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
--- OUTSIDE RECORDS SUMMARY | 2018-06-22 13:33 | XMS REPORT ---
Author Author Fernanda Gloria [facility] [employer] Address Unknown Phone Unavailable Care Team Providers Care Irrigation System Operator Name Role Phone Fernanda Gloria Unavailable Encounters Encounter Location Date Unknown [facility] September 08, 2015 Unknown [facility] October 20, 2015 Unknown [facility] Dec 02, 2015 Unknown [facility] October 01, 2015 Unknown [facility] October 20, 2015 Unknown [facility] October 06, 2015 Unknown [facility] October 08, 2015 Unknown [facility] September 15, 2015 Unknown [facility] October 06, 2015 Unknown [facility] Dec 05, 2015 2 week f/u [facility] July 22, 2015 Unknown [facility] July 29, 2015 Other, concerns over BP [facility] September 03, 2015 Other [facility] October 01, 2015 Unknown [facility] August 11, 2015 Unknown [facility] August 22, 2015 EST W/PCP [facility] July 08, 2015 Unknown [facility] Dec 23, 2015 Refill [facility] Dec 22, 2015 Unknown [facility] August 26, 2015 Unknown [facility] September 02, 2015 Unknown [facility] Jan 30, 2016 Unknown [facility] Dec 26, 2015 Unknown [facility] Dec 29, 2015 Unknown [facility] Dec 31, 2015 Unknown [facility] Jan 30, 2016 Problems Problem Type [...] Date End Date Status Dosage Xanax [facility] [address]-80 1 MG Orally three times a day (tid) October 27, 2015 Active 1 tablet Ambien [facility] 74927251965 10 MG Active TAKE ONE (1) TABLET(S) BY MOUTH AT BEDTIME. Social History Social History Element Qualifiers Date [...]
--- OUTSIDE RECORDS SUMMARY | 2018-06-22 13:33 | XMS REPORT ---
Author Author Fernanda Gloria Organization [employer] Address Unknown Phone Unavailable Care Team Providers Care Carton Forming Machine Tender Name Role Phone Fernanda Gloria Unavailable Allergies, Adverse Reactions, Alerts Substance Reaction Event Type Lamictal Info Not Available Drug Allergy Klonopin Info Not Available Drug Allergy Vyybryd Info Not Available Non Drug Allergy Encounters Encounter Location Date Unknown [facility] September 08, 2015 Unknown [facility] Mar 16, 2016 Unknown [facility] October 20, 2015 Unknown [facility] Dec 02, 2015 Unknown [facility] October 01, 2015 Unknown [facility] October 20, 2015 Unknown [facility] October 06, 2015 Unknown [facility] October 08, 2015 Unknown [facility] September 15, 2015 Unknown [facility] October 06, 2015 Unknown [facility] Dec 05, 2015 2 week f/u [facility] July 22, 2015 Unknown [facility] July 29, 2015 Other, concerns over BP [facility] September 03, 2015 Other [facility] October 01, 2015 Unknown [facility] August 11, 2015 Unknown [facility] August 22, 2015 EST W/PCP [facility] July 08, 2015 Unknown [facility] Dec 23, 2015 Refill [facility] Dec 22, 2015 Unknown [facility] August 26, 2015 Unknown [facility] September 02, 2015 Unknown [facility] Jan 30, 2016 Refill [facility] Feb 20, 2016 Unknown [facility] Mar 08, 2016 REFILLS [facility] Feb 24[facility] 2016 Unknown [facility] Dec 26, 2015 Unknown [facility] Dec 29, 2015 Unknown [facility] Dec 31, 2015 Unknown [facility] Jan 30, 2016 Problems Problem Type Condition ICD-9 Code Onset Dates Condition Status Problem HTN (hypertension) I10 Active Problem Insomnia G47.00 Active Problem Cardiac arrhythmia I49.9 Active Problem Migraine without aura and without status migrainosus, not intractable G43.009 Active Problem Essential hypertension I10 Active Problem Irritable bowel syndrome with diarrhea K58.0 Active Problem DM (diabetes mellitus) E11.9 Active Problem Seizure R56.9 Active Problem Chronic pain G89.29 Active Problem Sleep apnea G47.30 Active Assessment Acute cystitis without hematuria N30.00 Active Assessment Hypokalemia E87.6 Active Assessment 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 Verapamil HCl [facility] [address]-81 120 MG Orally Once a day Active 1 capsule ProAir HFA [facility] [address]-81 108 (90 Base) MCG/ACT Inhalation every 4 hrs Active 2 puffs as needed Nexium [facility] [address]-64 40 MG Orally Once a day Active 1 capsule Keppra [facility] [address]-95 500 mg Orally twice aday Active 1 tablet Potassium Chloride [facility] [address]-85 20 MEQ/15ML (10%) Orally TWICE A WEEK Inactive 1 tablet Digoxin [facility] [address]-31 0.25 MG/ML Injection Once a day Active 1 tablet Effexor XR [facility] 53433828330 150 MG Active TAKE TWO (2) CAPSULE(S) BY MOUTH DAILY. Xanax [facility] [address]-36 1 MG Orally three times a day (tid) October 27, 2015 Active 1 tablet Klor-Con M20 [facility] [address]-04 20 MEQ Orally Once a day Mar 16, 2016 Apr 15, 2016 Active 1 tablet with food Metoprolol Tartrate [facility] [address]-59 100 mg Orally Twice a day Active 1 tablet [place] [facility] [address]-03 7.5-325 MG Orally every 8 hrs September 02, 2015 Active 1 tablet as needed Fioricet [facility] 33047122717 50-325-40 MG Orally three times a day (tid) as needed (prn) Active 1 tablet as needed Librax [facility] [address]-95 5-2.5 MG Orally three times a day (tid) Mar 16, 2016 Apr 15, 2016 Active 1 capsule before meals [place] [facility] [address]-39 7.5-325 MG Orally three times a day (tid) as needed (prn) Mar 16, 2016 Active 1 tablet as needed Venlafaxine HCl ER [facility] [address]-26 225 MG Orally Once a day October 21, 2015 Active 1 tablet with food Keppra [facility] [address]-34 750 MG Orally every 12 hrs October 27, 2015 Active 1 tablet Doxycycline [facility] [address]-72 40 MG Orally Once a day Active 1 capsule on an empty stomach in the morning Levofloxacin [facility] [address]-23 500 MG Orally Once a day Active 1 tablet Chlordiazepoxide-Amitriptyline [facility] [address]-61 5-12.5 MG Orally Once a day Active 1 tablet Folic Acid [facility] [address]-25 1 MG Orally Once a day Active 1 tablet Multi For Her [facility] 69436-92667 Orally Active Unknown Social History Social History Element Qualifiers Date Reported Tobacco Use: . Are you a: current smoker, How many years have you smoked? 20, Pack Years 12 Mar 16, 2016 Use of recreational / street drugs? . Answer: No Mar 16, 2016 Marital Status: . seperated. Mar 16, 2016 Caffeine intake? . Status: Yes, What type: Coffee, Tea, Soft Drinks Mar 16, 2016 Do you exercise? . Answer: No Mar 16, 2016 Do you drink alcohol? . Status: No Mar 16, 2016 Travel outside [place]: . 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
--- OUTSIDE RECORDS SUMMARY | 2018-06-22 13:33 | XMS REPORT ---
Author Author Fernanda Gloria [facility] e[employer] Address Unknown Phone Unavailable Care Team Providers Care Sales Technician Home Theater Name Role Phone Fernanda Gloria Unavailable Encounters Encounter Location Date 2 week f/u [facility] July 22, 2015 Unknown [facility] July 29, 2015 Other, concerns over BP [facility] September 03, 2015 Other [facility] October 01, 2015 Unknown [facility] August 11, 2015 Unknown [facility] August 22, 2015 EST W/PCP [facility] July 08, 2015 Unknown [facility] September 08, 2015 Unknown [facility] Dec 23, 2015 Refill [facility] Dec 22, 2015 Unknown [facility] August 26, 2015 Unknown [facility] September 02, 2015 Unknown [facility] October 20, 2015 Unknown [facility] Dec 02, 2015 Unknown [facility] October 01, 2015 Unknown [facility] October 20, 2015 Unknown [facility] Dec 26, 2015 Unknown [facility] October 06, 2015 Unknown [facility] Dec 29, 2015 Unknown [facility] October 08, 2015 Unknown [facility] September 15, 2015 Unknown [facility] October 06, 2015 Unknown [facility] Dec 05, 2015 Problems Problem Type Condition [...] Date End Date Status Dosage Tylenol/Codeine #4 [facility] [address]-55 300-60 MG Orally every 6 hrs PRN Dec 26, 2015 Jan 28, 2016 Active 1 tablet as needed Social [...]
--- OUTSIDE RECORDS SUMMARY | 2018-06-22 13:33 | XMS REPORT ---
Author Author Fernanda Gloria [facility] [employer] Address Unknown Phone Unavailable Care Team Providers Care Subgrade Roller Operator Name Role Phone Fernanda Gloria Unavailable Encounters Encounter Location Date 2 week f/u [facility] July 22, 2015 Unknown [facility] July 29, 2015 Other, concerns over BP [facility] September 03, 2015 Other [facility] October 01, 2015 Unknown [facility] August 11, 2015 Unknown [facility] August 22, 2015 EST W/PCP [facility] July 08, 2015 Unknown [facility] September 08, 2015 Refill [facility] Dec 22, 2015 Unknown [facility] August 26, 2015 Unknown [facility] September 02, 2015 Unknown [facility] October 20, 2015 Unknown [facility] Dec 02, 2015 Unknown [facility] October 01, 2015 Unknown [facility] October 20, 2015 Unknown [facility] October 06, 2015 Unknown [facility] October 08, 2015 Unknown [facility] September 15, 2015 Unknown [facility] October 06, 2015 Unknown [facility] Dec 05, 2015 Problems Problem Type [...] Date End Date Status Dosage Nystatin [facility] [address]-37 [id number] UNIT/ML Mouth/Throat Twice a day July 08, 2015 Jan 01, 2016 Active 5ml Social History Social History Element [...]
--- OUTSIDE RECORDS SUMMARY | 2018-06-22 13:33 | XMS REPORT ---
Author Author Fernanda Gloria [facility] [employer] Address Unknown Phone Unavailable Care Team Providers Care Desk Pen Set Assembler Name Role Phone Fernanda Gloria Unavailable Encounters Encounter Location Date 2 week f/u [facility] July 22, 2015 Unknown [facility] July 29, 2015 Other, concerns over BP [facility] September 03, 2015 Other [facility] October 01, 2015 Unknown [facility] August 11, 2015 Unknown [facility] August 22, 2015 EST W/PCP [facility] July 08, 2015 Unknown [facility] September 08, 2015 Unknown [facility] Dec 23, 2015 Refill [facility] Dec 22, 2015 Unknown [facility] August 26[facility] 2015 Unknown [facility] September 02, 2015 Unknown [facility] October 20, 2015 Unknown [facility] Dec 02, 2015 Unknown [facility] October 01, 2015 Unknown [facility] October 20, 2015 Unknown [facility] Dec 26, 2015 Unknown [facility] October 06, 2015 Unknown [facility] Dec 29, 2015 Unknown [facility] October 08, 2015 Unknown [facility] Dec 31, 2015 Unknown [facility] September 15, 2015 Unknown [facility] October 06, 2015 Unknown [facility] Dec 05, 2015 Problems Problem Type [...] Date End Date Status Dosage Xanax [facility] [address]-39 1 MG Orally three times a day [...]
--- OUTSIDE RECORDS SUMMARY | 2018-06-22 13:33 | XMS REPORT ---
Author Author Fernanda Gloria [facility] eClinicalWorks Address Unknown Phone Unavailable Care Team Providers Care Director [employer] Name Role Phone Fernanda Gloria Unavailable Encounters Encounter Location Date Unknown [facility] September 08, 2015 Unknown [facility] Apr 12, 2016 Unknown [facility] Mar 16, 2016 Unknown [facility] October 20, 2015 Unknown [facility] Dec 02, 2015 Unknown [facility] October 01, 2015 Unknown [facility] October 20, 2015 Unknown [facility] October 06, 2015 Unknown [facility] October 08, 2015 Unknown [facility] September 15, 2015 Unknown [facility] October 06, 2015 Unknown [facility] Dec 05, 2015 2 week f/u [facility] July 22, 2015 Unknown [facility] July 29, 2015 Other, concerns over BP [facility] September 03, 2015 Other [facility] October 01, 2015 Unknown [facility] August 11, 2015 Unknown [facility] August 22, 2015 EST W/PCP [facility] July 08, 2015 Unknown [facility] Dec 23, 2015 Refill [facility] Dec 22, 2015 Unknown [facility] August 26, 2015 Unknown [facility] September 02, 2015 Unknown [facility] Jan 30, 2016 Refill [facility] Feb 20, 2016 Unknown [facility] Mar 08, 2016 REFILLS [facility] Feb 24, 2016 Unknown [facility] Dec 26, 2015 Unknown [facility] Dec 29, 2015 Unknown [facility] Dec 31, 2015 Unknown [facility] Jan 30, 2016 Problems Problem Type [...] Active Problem Sleep apnea G47.30 Active Assessment Anxiety F41.9 Active Problem RA (rheumatoid arthritis) M06.9 Active Problem Opiate addiction F11.20 Active Problem Migraine G43.909 Active Problem Anxiety F41.9 Active Problem GERD (gastroesophageal reflux disease) K21.9 Active Problem Seizures R56.9 Active Medications Medication Code System Code Instructions Start Date End Date Status Dosage Xanax MEDISPAN [address]-08 1 MG Orally three times a day [...] 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
--- OUTSIDE RECORDS SUMMARY | 2018-06-22 13:33 | XMS REPORT ---
Author Author Fernanda Gloria [facility] eClinicalWorks Address Unknown Phone Unavailable Care Team Providers Care Cloth Shrinker Name Role Phone Fernanda Gloria Unavailable Encounters Encounter Location Date Unknown [facility] September 08, 2015 Unknown [facility] October 20, 2015 Unknown [facility] Dec 02, 2015 Unknown [facility] October 01, 2015 Unknown [facility] October 20, 2015 Unknown [facility] October 06, 2015 Unknown [facility] October 08, 2015 Unknown [facility] September 15, 2015 Unknown [facility] October 06, 2015 Unknown [facility] Dec 05, 2015 2 week f/u [facility] July 22, 2015 Unknown [facility] July 29, 2015 Other, concerns over BP [facility] September 03, 2015 Other [facility] October 01, 2015 Unknown [facility] August 11, 2015 Unknown [facility] August 22, 2015 EST W/PCP [facility] July 08, 2015 Unknown [facility] Dec 23, 2015 Refill [facility] Dec 22, 2015 Unknown [facility] August 26, 2015 Unknown [facility] September 02, 2015 Unknown [facility] Jan 30, 2016 Refill [facility] Feb 20, 2016 Unknown [facility] Dec 26, 2015 Unknown [facility] Dec 29, 2015 Unknown [facility] Dec 31, 2015 Unknown [facility] Jan 30, 2016 Problems Problem [...] Start Date End Date Status Dosage Fioricet MEDISPAN [id number] 50-325-40 MG BY MOUTH EVERY FOUR HOURS Apr 20, 2016 Active TAKE ONE (1) TABLET(S) Social History Social History Element Qualifiers Date [...]
--- OUTSIDE RECORDS SUMMARY | 2018-06-22 13:33 | XMS REPORT ---
Author Author Fernanda Gloria [facility] eClinicalWorks Address Unknown Phone Unavailable Care Team Providers Care Lime Supervisor Name Role Phone Fernanda Gloria Unavailable Encounters Encounter Location Date Unknown [facility] September 08, 2015 Unknown [facility] October 20, 2015 Unknown [facility] Dec 02, 2015 Unknown [facility] October 01, 2015 Unknown [facility] October 20, 2015 Unknown [facility] October 06, 2015 Unknown [facility] October 08, 2015 Unknown [facility] September 15, 2015 Unknown [facility] October 06, 2015 Unknown [facility] Dec 05, 2015 2 week f/u [facility] July 22, 2015 Unknown [facility] July 29, 2015 Other, concerns over BP [facility] September 03, 2015 Other [facility] October 01, 2015 Unknown [facility] August 11, 2015 Unknown [facility] August 22, 2015 EST W/PCP [facility] July 08, 2015 Unknown [facility] Dec 23, 2015 Refill [facility] Dec 22, 2015 Unknown [facility] August 26, 2015 Unknown [facility] September 02, 2015 Unknown [facility] Dec 26, 2015 Unknown [facility] Dec 29, 2015 Unknown [facility] Dec 31, 2015 Unknown [facility] Jan 30, 2016 Problems Problem [...] Date End Date Status Dosage Xanax MEDISPAN [address]-65 1 MG Orally three times a day (tid) October 27, 2015 Active 1 tablet Ambien MEDISPAN [id number] 10 MG Active TAKE ONE (1) TABLET(S) [...]
--- OUTSIDE RECORDS SUMMARY | 2018-06-22 13:33 | XMS REPORT | Summary of Care ---
Author Author [facility] Organization [facility] Address Unknown Phone Unavailable Encounter HQ Xiomara(TRENT) [id number] Date(s): 08/14/15 - 08/18/15 [facility] [id number] [place] [address]- Discharge Disposition: Home Attending Physician: Fernanda Gloria MD Admitting Physician: Fernanda Gloria MD Vital Signs 1 2 3 Most recent to oldest [Reference Range]: 162.56 cm (08/15/15 12:20 AM) 162.56 cm (08/14/15 5:56 PM) Height 98.4 DegF (08/18/15 3:59 PM) 98.5 DegF (08/18/15 11:50 AM) 97.7 DegF (08/18/15 7:55 AM) Temperature Oral [96.4-99.1 DegF] 130/65 mmHg (08/18/15 3:59 PM) 131/80 mmHg (08/18/15 11:50 AM) 123/71 mmHg (08/18/15 7:55 AM) Blood Pressure [90-140/60-90 mmHg] 18 BRMIN (08/18/15 3:59 PM) 18 BRMIN (08/18/15 11:50 AM) 18 BRMIN (08/18/15 7:55 AM) Respiratory Rate [14-20 BRMIN] 66 bpm (08/18/15 3:59 PM) 62 bpm (08/18/15 11:50 AM) 67 bpm (08/18/15 7:55 AM) Peripheral Pulse Rate [60-100 bpm] 100.909 kg (08/15/15 12:20 AM) 96.364 kg (08/14/15 5:56 PM) Weight 38.19 m2 (08/15/15 12:20 AM) 36.47 m2 (08/14/15 5:56 PM) Body Mass Index Problem List Condition Effective Dates Status Health Status Informant Anxiety(Confirmed) Resolved Depression(Confirmed Resolved ) GERD Resolved (gastroesophageal reflux disease)(Confirmed) Hypertension(Confirm Resolved ed) Rheumatoid Resolved arthritis(Confirmed) Seizures(Confirmed) Resolved SVT - Resolved Supraventricular tachycardia(Confirme d) Allergies, Adverse Reactions, Alerts Substance Reaction Severity Status KlonoPIN Active Viibryd Active Medications acetaminophen 650 mg, 2 tab, Route: PO, Drug form: TAB, Q4H, Dosing Weight 96.364, kg, PRN Samantha n 1-3/Temp > 100.4 F, Start date: 08/14/15 23:50:00 CDT, Duration: 30 day, Stop date: 09/13/15 23:49:00 CDT Notes: Do not exceed 4 gm/day. (Same as: Tylenol) Start Date: 08/14/15 Stop Date: 08/18/15 Status: Discontinued Ambien 10 mg, PO, Bedtime, 0 Refill(s) Start Date: 08/15/15 Status: Ordered Ambien 5 mg, 1 tab, Route: PO, Drug form: TAB, Bedtime, Dosing Weight 100.909, kg, Star t date: 08/15/15 21:00:00 CDT, Duration: 30 day, Stop date: 09/13/15 21:00:00 CD T Notes: (Same As: Ambien) Start Date: 08/15/15 Stop Date: 08/18/15 Status: Discontinued amitriptyline 12.5 mg, 0.5 tab, Route: PO, Drug form: TAB, Bedtime, Start date: 08/15/15 21:00 :00 CDT, Duration: 30 day, Stop date: 09/13/15 21:00:00 CDT Notes: (Same as: Elavil) Start Date: 08/15/15 Stop Date: 08/18/15 Status: Discontinued amitriptyline-chlordiazepoxide 12.5 mg-5 mg oral tablet 1 tab, Route: PO, Dosing Weight 100.909, kg, Bedtime, Start date: 08/15/15 21:00 :00 CDT, Duration: 30 day, Stop date: 09/13/15 21:00:00 CDT Start Date: 08/15/15 Stop Date: 08/15/15 Status: Deleted Ativan 1 mg, 1 tab, Route: PO, Drug form: TAB, TID, Dosing Weight 100.909, kg, Start da te: 08/15/15 15:00:00 CDT, Duration: 30 day, Stop date: 09/14/15 9:00:00 CDT Notes: (Same as: Ativan) Start Date: 08/15/15 Stop Date: 08/18/15 Status: Discontinued Ativan 1 mg oral tablet 1 mg=1 tab, PO, TID, 0 Refill(s) Start Date: 08/15/15 Status: Ordered buprenorphine-naloxone 8 mg-2 mg sublingual tablet, disintegrating 2 tab, Route: SL, Dosing Weight 100.909, kg, Daily, Start date: 08/16/15 9:00:00 CDT, Duration: 30 day, Stop date: 09/14/15 9:00:00 CDT Start Date: 08/16/15 Stop Date: 08/18/15 Status: Discontinued chlordiazePOXIDE 5 mg oral capsule (Librium) 5 mg, 1 cap, Route: PO, Drug form: CAP, Bedtime, Start date: 08/15/15 21:00:00 C DT, Duration: 30 day, Stop date: 09/13/15 21:00:00 CDT Notes: (Same As: Librium) Start Date: 08/15/15 Stop Date: 08/18/15 Status: Discontinued Effexor XR 225, PO, Daily, 0 Refill(s) Start Date: 08/15/15 Status: Ordered Effexor XR 225 mg, 3 cap, Route: PO, Drug form: ERCAP, Daily, Dosing Weight 100.909, kg, St art date: 08/16/15 9:00:00 CDT, Duration: 30 day, Stop date: 09/14/15 9:00:00 CD T Notes: Do not open, crush, or chew.(Same As: Effexor XR) Start Date: 08/16/15 Stop Date: 08/18/15 Status: Discontinued folic acid 1 mg, 1 tab, Route: PO, Drug form: TAB, Daily, Dosing Weight 100.909, kg, Start date: 08/16/15 9:00:00 CDT, Duration: 30 day, Stop date: 09/14/15 9:00:00 CDT Notes: (Same as: Folvite) Start Date: 08/16/15 Stop Date: 08/18/15 Status: Discontinued folic acid 1 mg oral tablet 1 mg=1 tab, PO, Daily, 0 Refill(s) Start Date: 08/15/15 Status: Ordered Keppra 500 mg oral tablet 500 mg, 1 tab, Route: PO, Drug form: TAB, BID, Dosing Weight 100.909, kg, Start date: 08/15/15 21:00:00 CDT, Duration: 30 day, Stop date: 09/14/15 9:00:00 CDT Notes: (Same as:Keppra) Start Date: 08/15/15 Stop Date: 08/18/15 Status: Discontinued Keppra 500 mg oral tablet 500 mg=1 tab, PO, BID, 0 Refill(s) Start Date: 08/15/15 Status: Ordered Limbitrol 12.5 mg-5 mg oral tablet 1 tab, PO, Bedtime, 0 Refill(s) Start Date: 08/15/15 Status: Ordered metoprolol tartrate 100 mg, 2 tab, Route: PO, Drug form: TAB, Q12H, Dosing Weight 100.909, kg, Start date: 08/15/15 21:00:00 CDT, Duration: 30 day, Stop date: 09/14/15 9:00:00 CDT Notes: (Same as: Lopressor) Start Date: 08/15/15 Stop Date: 08/18/15 Status: Discontinued metoprolol tartrate 100 mg oral tablet 100 mg=1 tab, PO, BID, 0 Refill(s) Start Date: 08/15/15 Status: Ordered morphine Sulfate 2 mg, 1 mL, Route: IV, Drug form: INJ, Q4H, Dosing Weight 96.364, kg, Start date : 08/15/15 0:00:00 CDT, Duration: 30 day, Stop date: 09/13/15 20:00:00 CDT Notes: (Same as:MORPhine Sulfate) Start Date: 08/15/15 Stop Date: 08/15/15 Status: Discontinued multivitamin Daily, 0 Refill(s) Start Date: 08/15/15 Status: Ordered NexIUM 40 mg, Route: PO, Drug form: ECCAP, Daily, Dosing Weight 100.909, kg, Start date : 08/16/15 9:00:00 CDT, Duration: 30 day, Stop date: 09/14/15 9:00:00 CDT Start Date: 08/16/15 Stop Date: 08/15/15 Status: Deleted NexIUM 40 mg oral delayed release capsule 40 mg=1 cap, PO, Daily, 0 Refill(s) Start Date: 08/15/15 Status: Ordered NURSE - Please bring home med bupre.-nalox. 8-2 to Pharmacy NURSE - Please bring home med bupre.-nalox. 8-2 to Pharmacy, 1, Drug form: MISC, Route: MISC, TID, 08/15/15 15:00:00 CDT, Duration: 30 day, Stop date: 09/14/15 9:00:00 CDT Start Date: 08/15/15 Stop Date: 08/18/15 Status: Discontinued pantoprazole 40 mg, 1 tab, Route: PO, Drug form: ECTAB, Before Dinner, Dosing Weight 96.364, kg, Start date: 08/15/15 16:30:00 CDT, Duration: 30 day, Stop date: 09/13/15 16: 30:00 CDT Notes: Tablet should not be chewed or crushed.(Same as: Protonix) Start Date: 08/15/15 Stop Date: 08/18/15 Status: Discontinued PLease do not give Vanco prior to trough is collected PLease do not give Vanco prior to trough is collected, Reminder, Drug form: MISC , Route: MISC, ONCE, 08/15/15 20:00:00 CDT, Stop date: 08/15/15 20:00:00 CDT Start Date: 08/15/15 Stop Date: 08/15/15 Status: Completed Solu-MEDROL 40 mg, 1 mL, Route: IVP, Drug form: INJ, Q12H, Dosing Weight 96.364, kg, Priorit y: STAT, Start date: 08/14/15 19:47:00 CDT, Duration: 30 day, Stop date: 6 9:00:00 CDT Notes: (Same as:Solu-MEDROL, A-Methapred) Start Date: 08/14/15 Stop Date: 08/18/15 Status: Discontinued Suboxone 12 mg-3 mg sublingual film 8mg/2.5, SL, Daily, # 30 ea, 0 Refill(s) Start Date: 08/15/15 Status: Ordered Unasyn + Sodium Chloride 0.9% IV 100 mL 1.5 gm, 1 ea, Route: IVPB, [id number], Dosing Weight 96.364, kg, Start date: 6 0:00:00 CDT, Duration: 30 day, Stop date: 09/13/15 17:00:00 CDT Notes: Dosing based on Ampicillin component(Same as: Unasyn) Start Date: 08/15/15 Stop Date: 08/18/15 Status: Discontinued vancomycin + Sodium Chloride 0.9% IV 250 mL 1 gm, Route: IV, [id number], Dosing Weight 96.364, kg, Start date: 08/15/15 5:00:00 CDT, Duration: 30 day, Stop date: 09/13/15 22:00:00 CDT Notes: TIME CRITICAL MEDICATION(Same As: Vancocin)Infusion rate< 1000 mg: infuse over 1 [id number] - 1500 mg: infuse over 1.5 [id number] - 2000 mg: infuse over 2 hours> 2001 mg: infuse over 2.5 hours MEDICATION WASTE Product Size: 1000 mgProduct Wasted: ___ mg Start Date: 08/15/15 Stop Date: 08/18/15 Status: Discontinued vancomycin + Sodium Chloride 0.9% IV 250 mL 1 gm, Route: IVPB, Drug form: INJ, [id number], Dosing Weight 96.364, kg, Priority: STAT, Start date: 08/14/15 19:46:00 CDT, Duration: 30 day, Stop date: 09/13/15 8 :00:00 CDT Notes: TIME CRITICAL MEDICATION(Same As: Vancocin)Infusion rate< 1000 mg: infuse over 1 [id number] - 1500 mg: infuse over 1.5 [id number] - 2000 mg: infuse over 2 hours> 2001 mg: infuse over 2.5 hours MEDICATION WASTE Product Size: 1000 mgProduct Wasted: ___ mg Start Date: 08/14/15 Stop Date: 08/14/15 Status: Discontinued verapamil 120 mg, PO, Daily, 0 Refill(s) Start Date: 08/15/15 Status: Ordered verapamil 120 mg, 1 tab, Route: PO, Drug form: TAB, Daily, Dosing Weight 100.909, kg, Star t date: 08/16/15 9:00:00 CDT, Duration: 30 day, Stop date: 09/14/15 9:00:00 CDT Notes: (Same As: Shavonne Willis) "Avoid grapefruit and grapefruit juice" Start Date: 08/16/15 Stop Date: 08/18/15 Status: Discontinued Results ELECTROLYTES 1 2 3 Most recent to oldest [Reference Range]: 139 mEq/L (08/17/15 3:56 AM) 138 mEq/L (08/16/15 5:20 AM) 140 mEq/L (08/15/15 3:24 AM) Sodium Lvl [135-145 mEq/L] 4.0 mEq/L (08/17/15 3:56 AM) 4.1 mEq/L (08/16/15 5:20 AM) 3.6 mEq/L (08/15/15 3:24 AM) Potassium Lvl [3.5-5.1 mEq/L] 102 mEq/L (08/17/15 3:56 AM) 105 mEq/L (08/16/15 5:20 AM) 103 mEq/L (08/15/15 3:24 AM) Chloride Lvl [95-109 mEq/L] 30 mEq/L (08/17/15 3:56 AM) 24 mEq/L (08/16/15 5:20 AM) 30 mEq/L (08/15/15 3:24 AM) CO2 [24-32 mEq/L] 11.0 mEq/L (08/17/15 3:56 AM) 13.1 mEq/L (08/16/15 5:20 AM) 10.6 mEq/L (08/15/15 3:24 AM) AGAP [10.0-20.0 mEq/L] CHEM PANEL 1 2 3 Most recent to oldest [Reference Range]: 0.54 mg/dL (08/17/15 3:56 AM) 0.59 mg/dL (08/16/15 5:20 AM) 0.59 mg/dL (08/15/15 3:24 AM) Creatinine Lvl [0.50-1.40 mg/dL] 122 mL/min/1.73m2 1 *NA* (08/17/15 3:56 AM) 118 mL/min/1.73m2 2 *NA* (08/16/15 5:20 AM) 118 mL/min/1.73m2 3 *NA* (08/15/15 3:24 AM) eGFR 8 mg/dL (08/17/15 3:56 AM) 6 mg/dL *LOW* (08/16/15 5:20 AM) 7 mg/dL (08/15/15 3:24 AM) BUN [7-22 mg/dL] 14 (08/14/15 7:06 PM) B/C Ratio [6-25] 212 mg/dL *HI* (08/17/15 3:56 AM) 220 mg/dL *HI* (08/16/15 5:20 AM) 201 mg/dL *HI* (08/15/15 3:24 AM) Glucose Lvl [70-99 mg/dL] 6.7 g/dL (08/14/15 7:06 PM) Total Protein [6.4-8.4 g/dL] 3.0 g/dL *LOW* (08/14/15 7:06 PM) Albumin Lvl [3.5-5.0 g/dL] 3.7 g/dL (08/14/15 7:06 PM) Globulin [2.0-4.0 g/dL] 0.8 (08/14/15 7:06 PM) A/G Ratio [0.7-1.6] 8.4 mg/dL *LOW* (08/17/15 3:56 AM) 8.6 mg/dL (08/16/15 5:20 AM) 8.9 mg/dL (08/15/15 3:24 AM) Calcium Lvl [8.5-10.5 mg/dL] 32 unit/L (08/14/15 7:06 PM) ALT [0-65 unit/L] 35 unit/L (08/14/15 7:06 PM) AST [0-37 unit/L] 82 unit/L (08/14/15 7:06 PM) Alk Phos [39-136 unit/L] 0.6 mg/dL (08/14/15 7:06 PM) Bili Total [0.2-1.3 mg/dL] 1.8 mMol/L (08/14/15 8:33 PM) Lactic Acid Lvl [0.5-2.2 mMol/L] 1Result Comment: The eGFR is calculated using [...] be mul tiplied by the estimated BMI. 2Result Comment: The eGFR is calculated using the [...] be mul tiplied by the estimated BMI. 3Result Comment: The eGFR is calculated using the [...] be mul tiplied by the estimated BMI. SPECIAL CHEMISTRY 1 2 3 Most recent to oldest [Reference Range]: 6.5 % *HI* (08/17/15 3:56 AM) Hgb A1C [<=5.6 %] TOXICOLOGY 1 2 3 Most recent to oldest [Reference Range]: 2100 *NA* (08/15/15 8:51 PM) Vanco Tr TND 8.8 ug/ml *NA* (08/15/15 8:51 PM) Vanco Tr ENDOCRINOLOGY 1 2 3 Most recent to oldest [Reference Range]: Negative *NA* (08/14/15 7:06 PM) S Preg [Negative] URINE AND STOOL 1 2 3 Most recent to oldest [Reference Range]: Clear (08/14/15 8:33 PM) UA Turbidity [Clear] [place] *NA* (08/14/15 8:33 PM) UA Color 6.0 (08/14/15 8:33 PM) UA pH [5.0-8.0] 1.012 (08/14/15 8:33 PM) UA Spec Grav [<=1.030] Negative mg/dL *NA* (08/14/15 8:33 PM) UA Glucose [Negative mg/dL] Negative (08/14/15 8:33 PM) UA Blood [Negative] Negative mg/dL *NA* (08/14/15 8:33 PM) UA Ketones [Negative mg/dL] Negative mg/dL (08/14/15 8:33 PM) UA Protein [Negative mg/dL] 4.0 mg/dL *HI* (08/14/15 8:33 PM) UA Urobilinogen [0.1-1.0 mg/dL] Negative *NA* (08/14/15 8:33 PM) UA Bili [Negative] Negative (08/14/15 8:33 PM) UA Leuk Est [Negative] Negative (08/14/15 8:33 PM) UA Nitrite [Negative] Moderate /LPF *ABN* (08/14/15 8:33 PM) UA Sq Epi [Few /LPF] Few /LPF *NA* (08/14/15 8:33 PM) UA Mucus [None Seen /LPF] IMMUNOLOGY 1 2 3 Most recent to oldest [Reference Range]: 14.0 mg/L *HI* (08/14/15 8:33 PM) CRP [<=2.9 mg/L] HEMATOLOGY 1 2 3 Most recent to oldest [Reference Range]: 12.3 K/CMM *HI* (08/17/15 3:56 AM) 10.8 K/CMM *HI* (08/16/15 5:20 AM) 8.3 K/CMM (08/15/15 3:24 AM) WBC [3.7-10.4 K/CMM] 4.78 M/CMM (08/17/15 3:56 AM) 4.77 M/CMM (08/16/15 5:20 AM) 5.18 M/CMM (08/15/15 3:24 AM) RBC [4.20-5.40 M/CMM] 11.9 g/dL *LOW* (08/17/15 3:56 AM) 12.0 g/dL (08/16/15 5:20 AM) 12.9 g/dL (08/15/15 3:24 AM) Hgb [12.0-16.0 g/dL] 36.5 % (08/17/15 3:56 AM) 36.7 % (08/16/15 5:20 AM) 39.5 % (08/15/15 3:24 AM) Hct [36.0-48.0 %] 76.3 fL *LOW* (08/17/15 3:56 AM) 76.8 fL *LOW* (08/16/15 5:20 AM) 76.4 fL *LOW* (08/15/15 3:24 AM) MCV [80.0-98.0 fL] 24.9 pg *LOW* (08/17/15 3:56 AM) 25.2 pg *LOW* (08/16/15 5:20 AM) 25.0 pg *LOW* (08/15/15 3:24 AM) MCH [27.0-31.0 pg] 32.7 g/dL (08/17/15 3:56 AM) 32.9 g/dL (08/16/15 5:20 AM) 32.7 g/dL (08/15/15 3:24 AM) MCHC [32.0-36.0 g/dL] 17.9 % *HI* (08/17/15 3:56 AM) 17.9 % *HI* (08/16/15 5:20 AM) 17.7 % *HI* (08/15/15 3:24 AM) RDW [11.5-14.5 %] 224 K/CMM (08/17/15 3:56 AM) 219 K/CMM (08/16/15 5:20 AM) 227 K/CMM (08/15/15 3:24 AM) Platelet [133-450 K/CMM] 9.5 fL (08/17/15 3:56 AM) 9.1 fL (08/16/15 5:20 AM) 9.9 fL (08/15/15 3:24 AM) MPV [7.4-10.4 fL] 73.0 % (08/17/15 3:56 AM) 71.4 % (08/16/15 5:20 AM) 78.6 % *HI* (08/15/15 3:24 AM) Segs [45.0-75.0 %] 22.3 % (08/17/15 3:56 AM) 23.4 % (08/16/15 5:20 AM) 19.1 % *LOW* (08/15/15 3:24 AM) Lymphocytes [20.0-40.0 %] 4.1 % (08/17/15 3:56 AM) 4.1 % (08/16/15 5:20 AM) 1.4 % *LOW* (08/15/15 3:24 AM) Monocytes [2.0-12.0 %] 0.1 % (08/17/15 3:56 AM) 0.4 % (08/16/15 5:20 AM) 0.3 % (08/15/15 3:24 AM) Eosinophils [0.0-4.0 %] 0.5 % (08/17/15 3:56 AM) 0.7 % (08/16/15 5:20 AM) 0.6 % (08/15/15 3:24 AM) Basophils [0.0-1.0 %] 8.9 K/CMM *HI* (08/17/15 3:56 AM) 7.7 K/CMM (08/16/15 5:20 AM) 6.5 K/CMM (08/15/15 3:24 AM) Segs-Bands # [1.5-8.1 K/CMM] 2.7 K/CMM (08/17/15 3:56 AM) 2.5 K/CMM (08/16/15 5:20 AM) 1.6 K/CMM (08/15/15 3:24 AM) Lymphocytes # [1.0-5.5 K/CMM] 0.5 K/CMM (08/17/15 3:56 AM) 0.4 K/CMM (08/16/15 5:20 AM) 0.1 K/CMM (08/15/15 3:24 AM) Monocytes # [0.0-0.8 K/CMM] 0.6 K/CMM *HI* (08/14/15 8:30 PM) Eosinophils # [0.0-0.5 K/CMM] 0.1 K/CMM (08/17/15 3:56 AM) 0.1 K/CMM (08/16/15 5:20 AM) 0.1 K/CMM (08/14/15 8:30 PM) Basophils # [0.0-0.2 K/CMM] 1+ *ABN* (08/17/15 3:56 AM) 1+ *ABN* (08/16/15 5:20 AM) 1+ *ABN* (08/15/15 3:24 AM) Microcyte [None Seen] Normal (08/14/15 8:30 PM) Plt Morph 13 mm/hr (08/14/15 8:33 PM) Sed Rate [0-20 mm/hr] Immunizations No data available for this section Procedures No data available for this section Social History Social History Type Response Alcohol Never Smoking Status Never smoker; Exposure to Tobacco Smoke None; Cigarette Smoking Last 365 Days No; Reg Smoking Cessation Counseling No Assessment and Plan No data available for this section
--- OUTSIDE RECORDS SUMMARY | 2018-06-22 13:33 | XMS REPORT ---
Author Author Fernanda Gloria [facility] eClinicalWorks Address Unknown Phone Unavailable Care Team Providers Care Search Lead Name Role Phone Fernanda Gloria Unavailable Encounters Encounter Location Date Unknown [facility] September 08, 2015 Unknown [facility] October 20, 2015 Unknown [facility] Dec 02, 2015 Unknown [facility] October 01, 2015 Unknown [facility] October 20, 2015 Unknown [facility] October 06, 2015 Unknown [facility] October 08, 2015 Unknown [facility] September 15, 2015 Unknown [facility] October 06, 2015 Unknown [facility] Dec 05, 2015 2 week f/u [facility] July 22, 2015 Unknown [facility] July 29, 2015 Other, concerns over BP [facility] September 03, 2015 Other [facility] October 01, 2015 Unknown [facility] August 11, 2015 Unknown [facility] August 22, 2015 EST W/PCP [facility] July 08, 2015 Unknown [facility] Dec 23, 2015 Refill [facility] Dec 22, 2015 Unknown [facility] August 26, 2015 Unknown [facility] September 02, 2015 Unknown [facility] Jan 30, 2016 Refill [facility] Feb 20, 2016 Unknown [facility] Mar 08, 2016 Unknown [facility] Dec 26, 2015 Unknown [facility] Dec 29, 2015 Unknown [facility] Dec 31, 2015 Unknown [facility] Jan 30, 2016 Problems Problem Type [...] Problem DM (diabetes mellitus) E11.9 Active Problem GERD (gastroesophageal reflux disease) K21.9 Active Problem RA (rheumatoid arthritis) M06.9 Active Problem Opiate addiction F11.20 Active Problem Migraine G43.909 Active Problem Anxiety F41.9 Active Medications Medication Code System Code Instructions Start Date End Date Status Dosage Ambien MEDISPAN [id number] 10 MG Active TAKE ONE (1) TABLET(S) [...] 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
--- OUTSIDE RECORDS SUMMARY | 2018-06-22 13:34 | XMS REPORT ---
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 Allergies, Adverse Reactions, Alerts Allergy Name Allergy Type Status Severity Reaction(s) Onset Date Inactive Date Treating Clinician Comments prochlorperazine DA Active MO 2018-06-22 00:00:00 clonazepam DA Active MD 2018-06-22 00:00:[address] 2018-06-22 00:00:00 tramadol DA Active SV 2018-06-22 00:00:00 buspirone DA Active U 2018-06-22 00:00:00 metoclopramide DA Active MO 2018-06-22 00:00:00 ketorolac DA Active MD 2018-06-22 00:00:00 prochlorperazine DA Active MO 2016-12-11 00:00:00 clonazepam DA Active MD 2016-12-11 00:00:00 lamotrigine DA Active MO 2016-12-11 00:00:00 tramadol DA Active SV 2016-12-11 00:00:00 buspirone DA Active U 2016-12-11 00:00:00 metoclopramide DA Active MO 2016-12-11 00:00:00 ketorolac DA Active MD 2016-12-11 00:00:00 VYBRID DA Active MD 2014-12-18 00:00:00 Medications This patient has no known medications. Results Test Description Test Time Test Comments Text Results Atomic Results Result Comments Urinalysis Complete 2016-08-16 22:10:00 Color (test code=COLOR) Yellow Yellow,Straw,Pl yellow Clarity (test code=CLAR) Clear Clear Specific Reading (test code=SPGR) 1.012 1.001-1.035 pH (test code=PH) 7.0 5.0-9.0 Ketone (test code=KET) Negative mg/dL Negative Glucose (test code=GLUCUR) Negative mg/dL Negative Protein (test code=PROT) Negative mg/dL Negative Bilirubin (test code=BILI) Negative mg/dL Negative Occult Blood (test code=UDOB) Negative Negative Urobilinogen (test code=UROB) 0.2 mg/dL 0.2-1.0 Nitrite (test code=NIT) Negative Negative Leuk Esterase (test code=LEUK) Small Negative Micros Exam (test code=MEXAM) Indicated Epithelial Cells (test code=EPI) 3-5 /LPF 0-30 WBC, Urine (test code=UWBC) None seen /HPF 0-5 RBC, Urine (test code=URBC) None Seen /HPF 0-5 Bacteria (test code=BACT) None /HPF Magnesium, [id number] 22:06:00* Test Item Value Reference Range Comments Magnesium (test code=MG) 2.0 mg/dL 1.7-2.5 Comprehensive Metabolic [id number] 22:06:00* Test Item Value Reference Range Comments Sodium (test code=NA) 136 mmol/L 135-145 Potassium (test code=K) 4.6 mmol/L 3.5-5.1 Chloride (test code=CL) 98 mmol/L 98-105 Carbon Dioxide (test code=CO2) 27 mmol/L 22-29 Glucose (test code=GLU) 111 mg/dL 70-115 Blood Urea Nitrogen (test code=BUN) 15 mg/dL 6-20 Creatinine (test code=CREAT) 1.0 mg/dL 0.5-0.9 Calcium (test code=CA) 9.8 mg/dL 8.3-10.5 Prot Total (test code=TP) 7.1 g/dL 6.4-8.3 Albumin (test code=ALB) 4.4 g/dL 3.5-5.2 A/G Ratio (test code=AGRATIO) 1.6 Ratio Globulin (test code=GLOB) 2.7 2.9-3.1 Bili Total (test code=TBIL) 0.2 mg/dL 0.1-0.9 Alk Phos (test code=APHOS) 76 U/L 35-104 AST (test code=AST) 24 U/L 1-32 Hemolyzed ALT (test code=ALT) 19 U/L 1-33 BUN/Creatinine Ratio (test code=BCRATIO) 15.0 Anion Gap (test code=AGAP) 11 mmol/L 7-16 Estimated GFR (test code=GFR) >60 mL/min/1.73m2 eGFR (estimated Glomerular Filtration Rate) is an estimated value,calculated from the patient's serum creatinine using the MDRD equation.It is NOT the patient's actual GFR. The eGFR provides a more clinicallyuseful measure of kidney disease than serum creatinine alone.This calculation takes sex and race into account, if the informationis provided. If the race is not provided, and the patient isAfrican-[place], multiply by 1.212. If sex is not provided, and thepatient is female, multiply by 0.742. Results for patients <18 years ofage have not been validated by the MDRD study and should be interpretedwith caution.eGFR Result Interpretation:eGFR > or=60 is in the Normal RangeeGFR < 60 may mean kidney diseaseeGFR < 15 may mean kidney failureRanges recommended by the National Kidney Foundat ion,http://nkdep.nih.gov CBC with [id number] 21:48:00* Test Item Value Reference Range Comments WBC (test code=WBC) 11.9 K/cumm 4.4-10.5 RBC (test code=RBC) 5.25 M/cumm 3.75-5.20 Hemoglobin (test code=HGB) 13.8 gm/dL 12.2-14.8 Hematocrit (test code=HCT) 42.1 % 36.5-44.4 MCV (test code=MCV) 80.1 fL 80-100 MCH (test code=MCH) 26.2 pg 27.0-32.5 MCHC (test code=MCHC) 32.7 g/dL 32.0-37.5 RDW (test code=RDW) 15.8 % 11.5-14.5 Platelet Count (test code=PLTCT) 347 K/cumm 140-440 MPV (test code=MPV) 7.7 fL Diff Method (test code=DIFFM) Auto Neutrophil (test code=NEUT) 37.9 % 36-70 Lymphocyte (test code=LYMPH) 42.4 % 12-44 Monocyte (test code=MONO) 7.4 % 0-11 Eosinophil (test code=EOS) 11.7 % 0-7 Basophil (test code=BASO) 0.6 % 0-2 Neutro Abs (test code=ANEUT) 4.5 K/cumm 1.6-7.4 Lymph Abs (test code=ALYMPH) 5.0 K/cumm 0.5-4.6 [place] Abs (test code=AMONO) 0.9 K/cumm 0.0-1.2 Eos Abs (test code=AEOS) 1.39 K/cumm 0.00-0.74 Baso Abs (test code=ABASO) 0.1 K/cumm 0.00-0.21 Troponin [id number] 02:31:00* Test Item Value Reference Range Comments Troponin T (test code=GENIE) <0.010 ng/mL 0.000-0.090 Lipid [id number] 02:31:00* Test Item Value Reference Range Comments Cholesterol (test code=CHOL) 189 mg/dL 0-200 Triglycerides (test code=TRIG) 318 mg/dL 9-200 HDL (test code=HDL) 27 mg/dL 50-60 Chol/HDL (test code=CHOLPHDL) 7.0 Ratio 0.0-4.4 LDL, Calculated (test code=LDLC) 98 0-130 (NOTE)RISK OF HEART DISEASEPublished by [place] Heart AssociationAnalyte Optimal Boderline Increased RiskCHOL <200 200-239 >240TRIG <150 150- 199 >200HDL Male: >60 <40HDL Female: >60 <50LDL <100 130-159 >160LDL NEAR OPTIMAL IS 100-129 VLDL (test code=VLDL) 64 mg/dL 5-40 LDL/HDL (test code=LDLPHDL) 4 CK [id number] 02:31:00* Test Item Value Reference Range Comments CK (test code=CK) n/a U/L 26-192 CKMB (test code=CKMB) 1.4 ng/mL 0.0-2.8 CKMB% (test code=CKMBP) 0.0 % 0.0-3.4 CK [id number] 22:18:00* Test Item Value Reference Range Comments CK (test code=CK) 106 U/L -192 CKMB (test code=CKMB) 1.3 ng/mL 0.0-2.8 CKMB% (test code=CKMBP) 1.2 % 0.0-3.4 Troponin [id number] 20:50:00* Test Item Value Reference Range Comments Troponin T (test code=GENIE) <0.010 ng/mL 0.000-0.090 [id number] 14:14:00* Test Item Value Reference Range Comments Digoxin (test code=DIG) 0.5 ng/mL 0.90-2.00 [id number] 14:05:00* Test Item Value Reference Range Comments Amphetamine (test code=AMPH) Negative Negative For diagnostic purposes only, positive results should always be assessedin conjunctionwith the patient's medical history,clinical examination and otherfindings.To fulfill legal requirements, a more specific alternate chemical methodmust be used inorder to obtain a Confirmed analytical result. GC/MS is the preferred confirmatory method. Barbiturates (test code=MARITA) POSITIVE Negative Benzodiazepine (test code=MARCO ANTONIO) Negative Negative Cocaine (test code=COCA) Negative Negative Methadone (test code=MTHD) Negative Negative Opiates (test code=OPIA) Negative Negative PCP (test code=PCP) Negative Negative Propoxyphene (test code=PROPOX) Negative Negative THC (test code=THC) Negative Negative Troponin [id number] 13:54:00* Test Item Value Reference Range Comments Troponin T (test code=GENIE) <0.010 ng/mL 0.000-0.090 CK [id number] 13:54:00* Test Item Value Reference Range Comments CK (test code=CK) 125 U/L 26-192 Comprehensive Metabolic [id number] 13:54:00* Test Item Value Reference Range Comments Sodium (test code=NA) 138 mmol/L 135-145 Potassium (test code=K) 3.8 mmol/L 3.5-5.1 Chloride (test code=CL) 100 mmol/L 98-105 Carbon Dioxide (test code=CO2) 27 mmol/L 22-29 Glucose (test code=GLU) 129 mg/dL 70-115 Blood Urea Nitrogen (test code=BUN) 8 mg/dL 6-20 Creatinine (test code=CREAT) 0.8 mg/dL 0.5-0.9 Calcium (test code=CA) 9.4 mg/dL 8.3-10.5 Prot Total (test code=TP) 6.7 g/dL 6.4-8.3 Albumin (test code=ALB) 4.0 g/dL 3.5-5.2 A/G Ratio (test code=AGRATIO) 1.5 Ratio Globulin (test code=GLOB) 2.7 2.9-3.1 Bili Total (test code=TBIL) 0.2 mg/dL 0.1-0.9 Alk Phos (test code=APHOS) 72 U/L 35-104 AST (test code=AST) 27 U/L 1-32 ALT (test code=ALT) 22 U/L 1-33 BUN/Creatinine Ratio (test code=BCRATIO) 10.0 Anion Gap (test code=AGAP) 11 mmol/L 7-16 Estimated GFR (test code=GFR) >60 mL/min/1.73m2 eGFR (estimated Glomerular Filtration Rate) is an estimated value,calculated from the patient's serum creatinine using the MDRD equation.It is NOT the patient's actual GFR. The eGFR provides a more clinicallyuseful measure of kidney disease than serum creatinine alone.This calculation takes sex and race into account, if the informationis provided. If the race is not provided, and the patient isAfrican-[place], multiply by 1.212. If sex is not provided, and thepatient is female, multiply by 0.742. Results for patients <18 years ofage have not been validated by the MDRD study and should be interpretedwith caution.eGFR Result Interpretation:eGFR > or=60 is in the Normal RangeeGFR < 60 may mean kidney diseaseeGFR < 15 may mean kidney failureRanges recommended by the National Kidney Foundat ion,http://nkdep.nih.gov CK [id number] 13:54:00* Test Item Value Reference Range Comments CK (test code=CK) 125 U/L 26-192 CKMB (test code=CKMB) 1.5 ng/mL 0.0-2.8 CKMB% (test code=CKMBP) 1.2 % 0.0-3.4 D-Dimer, [id number] 13:45:00* Test Item Value Reference Range Comments D-Dimer, Quant (test code=DDQNT) 377 ng/mL 0-500 Please note Change in unit of measure from mg/L FEU to ng/mLA cutoff of less than 500 ng/mL DD has a negative predictive value of100% for DVT wig626% for PE.When using D-Dimer to help rule out DVT or PE, clinical information anddisease probability should be considered.Elevated D-Dimer values are not specific for thromboembolism. Prothrombin [id number] 13:45:00* Test Item Value Reference Range Comments PT (test code=PT) 11.70 seconds 9.78-13.35 INR (test code=INR) 1.03 Ratio 0.6-1.2 CBC with [id number] 13:33:00* Test Item Value Reference Range Comments WBC (test code=WBC) 9.2 K/cumm 4.4-10.5 RBC (test code=RBC) 5.00 M/cumm 3.75-5.20 Hemoglobin (test code=HGB) 12.9 gm/dL 12.2-14.8 Hematocrit (test code=HCT) 40.1 % 36.5-44.4 MCV (test code=MCV) 80.2 fL 80-100 MCH (test code=MCH) 25.7 pg 27.0-32.5 MCHC (test code=MCHC) 32.1 g/dL 32.0-37.5 RDW (test code=RDW) 15.7 % 11.5-14.5 Platelet Count (test code=PLTCT) 285 K/cumm 140-440 MPV (test code=MPV) 7.9 fL Diff Method (test code=DIFFM) Auto Neutrophil (test code=NEUT) 45.4 % 36-70 Lymphocyte (test code=LYMPH) 39.4 % 12-44 Monocyte (test code=MONO) 6.4 % 0-11 Eosinophil (test code=EOS) 8.2 % 0-7 Basophil (test code=BASO) 0.5 % 0-2 Neutro Abs (test code=ANEUT) 4.2 K/cumm 1.6-7.4 Lymph Abs (test code=ALYMPH) 3.6 K/cumm 0.5-4.6 [place] Abs (test code=AMONO) 0.6 K/cumm 0.0-1.2 Eos Abs (test code=AEOS) 0.76 K/cumm 0.00-0.74 Baso Abs (test code=ABASO) 0.1 K/cumm 0.00-0.21
[2018-06-22] MEDS ORDERED: KETOROLAC TROMETHAMINE 60 MG/2 ML VIAL IM ONE (13:45)
[2018-06-22] MEDS ORDERED: IBUPROFEN 600 MG TAB PO STA (14:42)
[2018-06-22 14:48] VITALS: BP 140/90
== END 2018-06-22 14:54 | disposition home or self-care (01) ==
LOC: FSED 13:25
DX: M54.5 Low back pain (principal); S39.012A Strain of muscle, fascia and tendon of lower back, initial encounter
CPT/HCPCS: 81003; 99283